=== PATIENT | female | born 1950 | race Caucasian/White ===

== ENCOUNTER 2016-08-30 17:36 | Observation (INO) | payer MEDICARE ==
[~2016-08-30] VITALS: Ht 154.9 cm; Wt 60.6 kg
--- NOTE | ~2016-08-30 | DS ---
PATIENT'S NAME: MAGY PERES [facility] AGE: 65 Y [address] ROOM: [place] [address] LOCATION: [facility] ADMIT DATE: 08/30/2016 Discharge Summary DISCHARGE DATE: 09/02/2016 FAMILY PHYSICIAN: Anil Lopez MD ATTENDING PHYSICIAN: Angel Regalado V PRINCIPAL DISCHARGE DIAGNOSIS: Urinary tract infection. SECONDARY DIAGNOSES: 1. Altered mental status. 2. Clostridium difficile diarrhea, recurrent. 3. Hyperthyroidism, secondary to thyroid replacement with ocular findings, TSH 0.07, T4 2.0. 4. Renal transplant. 5. Mitral and aortic valve replacement. 6. Chronic warfarin therapy. 7. Obstructive sleep apnea, on BiPAP. 8. Chronic hypercapnic respiratory failure. 9. Opioid dependency. CONSULTATIONS: Dr. Cooper of Neurology on 08/31/2016. PROCEDURES PERFORMED: None. COMPLICATIONS: None. BRIEF HISTORY: Ms. Peres is a 65-year-old chronically ill female, who appears much older than her biologic age. She has multiple medical problems, including opioid dependency, chronic hypercapnic respiratory failure. The patient presented with history of feeling dizzy, and for the past 3 days, she had also been falling. The patient was not able to further give a history because of her confused status on admission. Urinalysis was positive, and she was noted to have E. coli urinary tract infection, susceptible to ceftriaxone, which she has received 3 doses and will now be sent home on oral antibiotics. She developed diarrhea on the first day of admission. C. diff was reported back positive, and she was started on vancomycin oral dosing 125 mg q.i.d. We also added probiotics. She has had at least 2 stools today. She has been hydrated with IV fluids during the entire stay, and her renal function appears to be about at baseline, slightly elevated BUN above her normal. Currently, her renal panel shows sodium 136, potassium 3.4, chloride 104, CO2 of 22, glucose 129, calcium 8.3, BUN 29, it had been as high as about PATIENT'S NAME: MAGY PERES [facility] AGE: 65 Y [address] ROOM: [place] [address] LOCATION: [facility] ADMIT DATE: 08/30/2016 Discharge Summary DISCHARGE DATE: 09/02/2016 FAMILY PHYSICIAN: Anil Lopez MD ATTENDING PHYSICIAN: Angel Regalado V 33, and creatinine has been stable at 1.5 the entire time, albumin is 3.2, phosphorus is 3.0, estimated GFR is 35. A complete blood count on 09/01/2016 revealed white blood cell count 10.7, hemoglobin 11.5, platelets 442,000, absolute neutrophil count of 9.3, 75% granulocytes, 12% bands, 7% lymphocytes, 4% monos, 3% eos. Evaluation of her thyroid function because of her bulging eyes on exam, her TSH was found to be 0, which was obtained on admission was 0.007 and free T4 is 2.0 with upper limit of normal being 1.4. Her thyroid hormone has been held during the admission and will not be resumed on discharge. I have recommended this be followed closely by her PCP, and if further symptoms develop off her thyroid, she may need an endocrinology evaluation. The patient has a of her valve replacement and had therapeutic INR while she is here. She should continue INR monitoring as prior to admission. Current INR is 2.7. Presuming her goal would be 2.5 to 3.5. The patient's mental status cleared. She was more oriented and alert. Yesterday and today, she recognizes me when I walk in the room. She is very irritable. She did walk briefly with the physical therapist. I discussed with her and her daughter that she is ready for discharge. Her daughter is willing to pick her up later within an hour. DISCHARGE INSTRUCTIONS: Diet is heart healthy. Activity as tolerated. Follow up with Dr. Anil Lopez in 4 days. I did call his office to notify him of her hospitalization that she is being discharged with treatment for recurrent C. diff, and then I am holding her thyroid medication. MEDICATIONS AT THE TIME OF DISCHARGE: 1. Vancomycin 125 mg p.o. 4 times daily. 2. Amlodipine 10 mg p.o. daily. 3. Aspirin 81 mg p.o. daily. 4. Coreg 12.5 mg p.o. b.i.d. 5. Lexapro 10 mg daily. 6. Lasix 40 mg daily. 7. Protonix 40 mg daily. 8. Lactinex 1 p.o. t.i.d. with meals to be given, not at times with the Vancomycin. 9. Prograf 2 mg in the morning, 1 mg at bedtime. 10. Alprazolam 0.2 mg p.o. I am recommending she only take it up to 8 hours as needed and to decrease the dose because of her altered mental status at the time of admission. 11. Zolpidem 5 mg at h.s. for insomnia. I recommend also weaning that due to altered mental status. 12. DuoNeb every 6 hours p.r.n. dyspnea. PATIENT'S NAME: MAGY PERES [facility] AGE: 65 Y [address] ROOM: [place] [address] LOCATION: [facility] ADMIT DATE: 08/30/2016 Discharge Summary DISCHARGE DATE: 09/02/2016 FAMILY PHYSICIAN: Anil Lopez MD ATTENDING PHYSICIAN: Angel Regalado V 13. Warfarin 2 mg daily except for 3 mg on Monday, Monday, and Monday. 14. CellCept 750 mg p.o. b.i.d. 15. Oxycodone, again I am also recommending a dose reduction of 1 tablet only every 8 hours in consideration of her mental status. 16. As above, her Levothroid should be stopped until further directions from Dr. Lopez. CONDITION AT DISCHARGE: Fair. LAUREN CULVER MD LM/modl /[id number] CC: Anil Lopez MD d: 09/03/16 0306 t: 09/05/16 1425, DISCHARGE SUMMARY
--- NOTE | ~2016-08-30 | HP ---
PATIENT'S NAME: MAGY PERES [facility] AGE: 65 Y [address] ROOM: [place] [address] LOCATION: [facility] ADMIT DATE: 08/30/2016 History & Physical DISCHARGE DATE: FAMILY PHYSICIAN: Anil Lopez MD ATTENDING PHYSICIAN: JAZMYNE ROSALES V DATE OF SERVICE: CHIEF COMPLAINT: Dizziness. HISTORY OF PRESENT ILLNESS: The patient is a 65-year-old female, well-known to our service, with multiple medical problems, most significant of which is opioid dependency along with chronic hypercapnic respiratory failure with doubtful compliance and recurrent hospitalizations. The remainder of the past medical history will be detailed below. The patient unfortunately is extremely poor historian at this point. Apparently, she has been falling and feeling dizzy for the last 3 days. She is not losing consciousness and further qualifies her symptoms as "inability to control her body." She has undergone some opioids changes recently though she is unable to tell me who changed her medications or from what or to what and we will request those records from [facility]. If you ask her about chest pain, shortness of breath, nausea, vomiting, diarrhea, palpitations, or diaphoresis, the patient denies, and tells me that "she feels great." REVIEW OF SYSTEMS: All systems have been reviewed and are negative aside from pertinent positives mentioned above. EMERGENCY DEPARTMENT COURSE: In the ER, the patient had a detailed workup which so far was positive for some pyuria though the patient denies any urinary symptoms. PAST MEDICAL HISTORY: Significant for recurrent C. diff colitis, mitral valve replacement, aortic valve replacement, long-term anticoagulation for mechanical valve, PE, kidney transplant, recurrent diastolic congestive heart failure, obstructive sleep apnea on BiPAP, peripheral vascular disease, fibromyalgia, gastritis, chronic pain, and opioid dependency. PAST SURGICAL HISTORY: PATIENT'S NAME: MAGY PERES [facility] AGE: 65 Y [address] ROOM: [address] [address] LOCATION: [facility] ADMIT DATE: 08/30/2016 History & Physical DISCHARGE DATE: FAMILY PHYSICIAN: Anil Lopez MD ATTENDING PHYSICIAN: JAZMYNE ROSALES V Significant for fecal transplant, multiple fractures, kidney transplant, right AV fistula, mitral valve replacement, and aortic valve replacement. CURRENT MEDICATIONS: Current medications are being obtained and the patient unfortunately does not know what medications she is on. SOCIAL HISTORY: The patient denies any ongoing toxic habits, but does have a longstanding history of tobacco use. She resides at home with her . FAMILY HISTORY: Reviewed and is noncontributory due to known underlying etiology for the patient's presentation. PHYSICAL EXAMINATION: VITAL SIGNS: Blood pressure 137/70, pulse is 83, respirations are 20, temperature 99.3, and satting 95% on room air. GENERAL: Appears as a chronically ill, elderly female, in no acute distress. NEUROLOGIC: Exam is grossly nonfocal. EYES: Exam shows pupils are equal and reactive to light. There is no nystagmus or opsoclonus. ENT: Exam reveals no stridor. LYMPHATIC: Exam shows no cervical lymphadenopathy. ENDOCRINE: Exam shows no thyromegaly. LUNGS: Clear to auscultation with no wheezing or rhonchi. HEART: Exam shows regular rate and rhythm without appreciable murmurs, gallops, or rubs. GI: Abdomen is soft, nontender, nondistended. : Exam shows no costovertebral angle tenderness. VASCULAR: Exam shows slightly diminished, but good pedal pulses with good capillary refill. MUSCULOSKELETAL: Exam shows multiple scars from prior arm surgery. PSYCHIATRIC: Exam reveals a quite distracted affect with preserved mood and slightly deficient cognition. LABORATORY DATA: Studies performed in the ER significant for an unremarkable chest x-ray and UA, which shows 500 leukocytes and many bacteria. Her basic metabolic profile is significant for creatinine of 1.5, which is slightly up from baseline, sodium of 132, potassium of 3.6, and bicarb of 2.1. Procalcitonin is negative. ASSESSMENT AND PLAN: This is a 65-year-old female who will be admitted for observation due to: PATIENT'S NAME: MAGY PERES [facility] AGE: 65 Y [address] ROOM: [id number] [place], [place] [address] LOCATION: [facility] ADMIT DATE: 08/30/2016 History & Physical DISCHARGE DATE: FAMILY PHYSICIAN: Anil Lopez MD ATTENDING PHYSICIAN: JAZMYNE ROSALES V 1. Reported dizziness. A CAT scan of her head has been done and appears to be negative. Unfortunately, she is a very poor historian and I am not sure as to what is the underlying etiology for her dizziness. As such, we will perform the following workup:. a. We will get an arterial blood gas as she does have a recurrent history of hypercapnic respiratory failure; and at this point is quite disorganized. b. We will get an EKG to rule out any abnormalities there. c. We will get a Neurology evaluation for her dizziness. 2. Slight azotemia. I believe that at this point the patient is probably slightly dehydrated, which may be contributing to her symptoms. We will put her on gentle fluid amount and trend her electrolytes. 3. Pyuria. I am not tempted to treat this pyuria just yet as the patient does have a very strong history of difficult to treat C. diff and we would like to avoid that for her. 4. Mechanical heart valve on long-term anticoagulation. We will continue her on Coumadin and check her INR. 5. Status post kidney transplant. We will have to get her current immunosuppressive regimen and we will restart her on those medications. 6. Additional management will depend on clinical course. Time dedicated to this patient encounter is 35 minutes. MD ALEX AG/carito /[id number] D: [id number] T: 723 HISTORY & PHYSICAL
--- NOTE | ~2016-08-30 | ER ---
PATIENT'S NAME: MAGY PERES [facility] AGE: 65 Y [address] ROOM: [place] [address] LOCATION: [facility] ADMIT DATE: 08/30/2016 ER/Outpatient Report DISCHARGE DATE: FAMILY PHYSICIAN: Anil Lopez MD ATTENDING PHYSICIAN: JAZMYNE ROSALES V Admission date and time documented in the medical record. I saw the patient at 1800 hours. CHIEF COMPLAINT: Leg weakness, diarrhea. HISTORY OF PRESENT ILLNESS: This patient is a 65-year-old female, who has had a 2- to 3-day history of increasing weakness in her legs. She has a little bit of diarrhea. No nausea or vomiting. No headache, eyes, ears, nose, throat, neck, or spine pain. No fall or trauma. No recent colds, coughs, or flus. No lightheadedness, dizziness, syncope, or near syncope. No chest pain, shortness of breath. No abdominal pain. No nausea or vomiting. No urinary symptoms. No joint or muscle swelling, redness, or pain. No skin eruptions or rash. No neuro changes, psych issues, or endocrine problems. HOME MEDICATIONS: See attached medication list. ALLERGIES: CODEINE, CONTRAST DYE, MORPHINE SULFATE, NON-STEROIDALS, AND TORADOL. SOCIAL HISTORY: Nonsmoker since 2012, nondrinker. SIGNIFICANT PAST MEDICAL HISTORY: Hiatal hernia; obstructive sleep apnea, on CPAP; congestive heart failure; C. diff colitis; valvular heart disease; chronic anticoagulation with Coumadin; pulmonary embolism; peripheral vascular disease; fibromyalgia; gastritis; left arm fracture; pelvic fracture; bilateral hip fracture; remote tobacco abuse. OPERATIONS: Left kidney transplant, mitral valve replacement, fecal transplant, AV fistula placement, cholecystectomy, hysterectomy, parathyroidectomy, bilateral hip surgery, pelvic surgery, left arm surgery. REVIEW OF SYSTEMS: All systems reviewed by me are negative with the exception of those discussed in the history of present illness. PATIENT'S NAME: MAGY PERES [facility] AGE: 65 Y [address] ROOM: [place] [address] LOCATION: [facility] ADMIT DATE: 08/30/2016 ER/Outpatient Report DISCHARGE DATE: FAMILY PHYSICIAN: Anil Lopez MD ATTENDING PHYSICIAN: JAZMYNE ROSALES V PHYSICAL EXAMINATION: VITAL SIGNS: Temperature 99.3 tympanic, pulse 83, respirations 20, blood pressure 137/70, O2 saturation on room air is 95%. HEAD: Normocephalic. EYES, EARS, NOSE, THROAT: Clear. Mucous membranes are moist. NECK: Negative. LUNGS: Fairly clear. Fairly good air flow. Questionable few basilar rales. HEART: Regular. Pulses are palpable. ABDOMEN: Soft, nontender. Good bowel tones. EXTREMITIES: Some peripheral edema. No cyanosis. No deformity. NEUROVASCULAR: Intact. SKIN: Clear. LABORATORY DATA AND X-RAYS: Chest x-ray shows some pulmonary edema, beginning congestive heart failure, enlarged heart. Laboratory: Lactate was 0.8, procalcitonin was less than 0.05. Urine showed 50 to 100 whites, negative reds, negative epithelial cells, many bacteria, few white blood cell clumps, culture pending. Blood cultures x2 drawn, results pending. CMS was normal except for a slight low sodium 132, slight low potassium 3.6, low CO2 content of 21, slightly elevated glucose of 101, elevated BUN of 27, elevated creatinine 1.5, low GFR of 35. White count was 8200, 72 segs, 13 lymphs, 14 monos, 1 eosinophil, hemoglobin was 11 with hematocrit 33.7, platelet count was 420,000. PTT was 44, pro-time was 25.8 with an INR of 2.3. EMERGENCY DEPARTMENT COURSE: I did give the patient Lasix 40 mg IM in the emergency room and Percocet 5/325 two orally in the emergency room for pain. IMPRESSION: 1. Fluid overload, pulmonary hypertension with beginning congestive heart failure. 2. Urinary tract infection. 3. Obstructive sleep apnea, on CPAP. 4. Valvular heart disease with mitral valve replacement. 5. Chronic anticoagulation with Coumadin. 6. Peripheral vascular disease. 7. Fibromyalgia. 8. Remote tobacco abuse. PLAN: Discussed the patient initially with Dr. Anil Lopez, one of the hospitalist, PATIENT'S NAME: MAGY PERES [facility] AGE: 65 Y [address] ROOM: [address] [address] LOCATION: [facility] ADMIT DATE: 08/30/2016 ER/Outpatient Report DISCHARGE DATE: FAMILY PHYSICIAN: Anil Lopez MD ATTENDING PHYSICIAN: JAZMYNE ROSALES V to take care of her, his patient. Discussed the patient with Dr. Rosales. We will admit for observation. We will need diuresis and antibiotic therapy for urinary tract infection. Discussion ensued with the patient concerning my findings and recommendations, she understands. MD KHLOE DESAI/raheell /[id number] d: 08/31/16 0240 t: 09/02/16 1812, OUTPATIENT REPORT
[~2016-08-30 17:36] MED LIST: ALBUTEROL2.5 MG/0.5 INH; ALBUTEROL2.5 MG/31 INH; AMBIEN5 MG PO; APRESOLINE25 MG PO; BIPAP INH; CATAPRES-TTS0.3 MG TRANS; CELLCEPT250 M1 PO; CELLCEPT500 MG PO; CLEOCIN HCL300 MG PO; COREG12.5 MG PO; COUMADIN ** 9/62 MG PO; COUMADIN ** IA3 MG PO; COUMADIN **IA1 MG PO; COUMADIN **IA2.5 MG PO; COUMADIN2 MG PO; COUMADIN3 MG PO; DELTASONE5 MG PO; DESYREL50 MG PO; DIFICID200 MG PO; DILANTIN50 MG; DILAUDID 4MG4 MG PO; DILAUDID4 MG PO; ECOTRIN81 MG PO; EXELON PATCH 99.5 MG TOP; EXELON PATCH TOP; FEOSOL325 MG PO; FLORASTOR250 MG PO; IPRAT-ALBUT 0.5-3 ML INH; KAYEXALATE15 GM/60 M PO; LACTINEX (FLORA1 TAB PO; LACTINEX CHEWA1 EACH PO; LASIX20 M1 PO; LASIX40 M1 PO; LASIX40 MG PO; LEVOTHROID (SY50 MCG PO; LEXAPRO10 MG PO; LEXAPRO20 MG PO; LOPRESSOR50 MG; LOVENOX 8080 MG/0.8 SUB-Q; LYRICA 50MG CAP50 MG PO; MAG-OX-400(241400 MG PO; NORCO 5-325 MG1 TAB PO; NORVASC10 MG PO; OXYGEN M-15 INH; PAIN RELIEF325 MG PO; PEPCID20 MG PO; PERCOCET 5-3251 EACH PO; PREVALITE (=4 GM/PKT PO; PRILOSEC20 MG; PROGRAF 1MG CAPS1 MG PO; PROGRAF1 MG PO; PROTONIX40 MG PO; RIVASTIGMINE TOP; SYNTHROID50 MCG PO; TEARGEN1 BOT OPHTH; TYLENOL650 MG R; XANAX0.25 MG PO; ZOFRAN4 MG PO
[2016-08-30 18:09] LABS: BILIRUBIN URINE NEGATIVE (NEGATIVE); BLOOD URINE 10 /UL (NEGATIVE); GLUCOSE URINE NEGATIVE (NEGATIVE); KETONE URINE NEGATIVE (NEGATIVE); LEUKOCYTES URINE 500 /UL (NEGATIVE); NITRITE URINE NEGATIVE (NEGATIVE); PROTEIN URINE 100 mg/dL (NEGATIVE); UROBILINOGEN URINE NORMAL (NORMAL)
[2016-08-30 18:17] LABS: COLOR URINE YELLOW (YELLOW); TURBIDITY URINE 2+ (CLEAR)
[2016-08-30 18:18] LABS: EPITHELIAL URINE NEGATIVE #/HPF (NEGATIVE); RBC URINE NEGATIVE #/HPF (NEGATIVE); WBC URINE 50-100 #/HPF (NEGATIVE)
[2016-08-30 18:19] LABS: BACTERIA URINE MANY (NEGATIVE); WBC CLUMPS URINE FEW (NEGATIVE)
[2016-08-30 18:46] LABS: HEMATOCRIT 33.7 % (33.0-46.0); MCH 27.6 pg (27.0-34.0); MCHC 32.6 gm/dL (32.0-36.5); MPV 8.9 fl (9.4-12.4); PLATELET COUNT 420 K/uL (150-450); RBC 3.98 M/uL (3.50-5.50); RDW-CV 12.8 % (11.9-14.6); WBC 8.2 K/uL (4.0-11.0)
[2016-08-30 18:47] LABS: MCV 84.7 fl (83.0-98.0)
[2016-08-30 18:54] LABS: INR - (THERAPEUTIC) 2.3 (0.9-1.1); PROTIME 25.8 SECONDS (9.6-11.1); PTT 44 SECONDS (25-32)
[2016-08-30 19:01] LABS: ALBUMIN 3.7 gm/dL (3.5-5.0); ANION GAP 17.6 (10.0-19.0); CALCIUM 8.8 mg/dL (8.5-10.5); CREATININE 1.5 mg/dL (0.5-1.1); POTASSIUM 3.6 mMol/L (3.7-5.1); TOTAL BILIRUBIN 0.4 mg/dL (0.0-1.5)
[2016-08-30 19:07] LABS: ABSOLUTE NEUTROPHIL CT (ANC) 5.9 K/uL (1.8-7.8); LYMPHOCYTE # 1.1 K/uL (0.8-4.0); LYMPHOCYTE % 13 %; MONOCYTE # 1.1 K/uL (0.0-1.0); SEGMENTED NEUTROPHIL # 5.9 K/uL (1.8-7.8); SEGMENTED NEUTROPHIL % 72 %
[2016-08-30 21:10] LABS: BICARBONATE 22.9 mmol/L (18.0-23.0); PCO2 37 mmHg (35-45); PO2 63 mmHg (80-90)
--- NOTE | 2016-08-31 00:16 | NUR ---
Patient is a 73 y/o female from [place]. Has been experiencing dizziness and left shoulder pain the last couple days. Didn't come into the ER because she thought it would get better. VSS. Afebrile. Chronic n/t to hands and feet. Lung sounds clear throughout on Room Air. Sometimes wears O2 during the day. Sometimes wears Bipap at night. Hx of CHF, PEs, L)kidney transplant, Fibromyalgia, R) AV fistula, MRSA, CDIF. PERRLA. Denies headache. C/O dizziness at this time. Pain to left shoulder. No problems urinating. Bowels active. Last BM this morning. Difficulty getting words out, slurred speech- states she's been having this for the last two days as well.
--- NOTE | 2016-08-31 03:49 | NUR ---
SIGNIFICANT EVENT: PATIENT A/O X 3. PERRLA. DENIES N/T. STATES SOMETIMES EXPERIENCE NUMBNESS IN BILATERAL ARMS, BUT DENIES THIS SHIFT. MOVES ALL EXTREMITIES SPONTANEOUSLY AND TO COMMAND WITH EQUAL STRENGTH. AMBULATES HEAVY 1 ASSIST, REACHES FOR THINGS TO SUPPORT HER. LUNGS CLEAR AND DIM ON ROOM AIR. PT STATES SHE USES O2 NEEDED AT HOME, WELL BIPAP AT NIGHT. BM THIS SHIFT. NO ISSUES VOIDING. IV TO LEFT SHOULDER RUNNING NS AT 50 ML/HR X 24 HOURS. PAIN TO LEFT SHOULDER, RATING AT A 6. PERCOCET GIVEN X 1 X 2 TABS AROUND 0000, RELIEF NOTED. C/0 DIZZINESS. FOLLOW UP: PAIN CONTROL. CAROTID DOPPLERS TODAY. NEED ORTHOSTATIC VITALS THIS AM. FALL PRECAUTIONS.
[2016-08-31 07:00] LABS: HEMATOCRIT 33.3 % (33.0-46.0); HEMOGLOBIN 10.9 g/dL (10.0-15.0); MCH 27.6 pg (27.0-34.0); MCHC 32.7 gm/dL (32.0-36.5); MCV 84.3 fl (83.0-98.0); MPV 8.7 fl (9.4-12.4); PLATELET COUNT 407 K/uL (150-450); RBC 3.95 M/uL (3.50-5.50); WBC 10.2 K/uL (4.0-11.0)
[2016-08-31 07:50] LABS: ABSOLUTE NEUTROPHIL CT (ANC) 7.3 K/uL (1.8-7.8); BANDED NEUTROPHILS % 10 %; LYMPHOCYTE # 0.9 K/uL (0.8-4.0); LYMPHOCYTE % 9 %; MONOCYTE # 1.4 K/uL (0.0-1.0); SEGMENTED NEUTROPHIL # 6.3 K/uL (1.8-7.8); SEGMENTED NEUTROPHIL % 62 %
[2016-08-31 07:58] LABS: CALCIUM 8.7 mg/dL (8.5-10.5); CREATININE 1.5 mg/dL (0.5-1.1); PHOSPHORUS 4.3 mg/dL (2.5-4.9)
[2016-08-31 08:01] LABS: ANION GAP 19.4 (10.0-19.0); MAGNESIUM 1.6 mg/dL (1.3-2.6)
[2016-08-31 08:02] LABS: POTASSIUM 4.4 mMol/L (3.7-5.1)
[2016-08-31] MEDS ORDERED: PERCOCET 5-3251 EACH PO (09:27)
[2016-08-31] MEDS ORDERED: LEVOTHROID (SY50 MCG PO (09:27)
[2016-08-31 10:18] LABS: INR - (THERAPEUTIC) 3.4 (0.9-1.1); PROTIME 39.1 SECONDS (9.6-11.1)
--- NOTE | 2016-08-31 12:07 | NUR ---
Significant Event: Patient is A&Ox3 but forgetfull. States pain is in left shoulder and sometimes numbness. Moves extremities to command and spontaneoulsy. Ambulates heavy 1 to 2 assist. Up to commade to void. Lungs clear and diminshed on room air. IV to left shoulder running NS 50 ml/hr x 25 hrs. Percocet Q6. Slightly muffled speech.
--- NOTE | 2016-08-31 12:13 | NUR ---
Introduced self and CM role to [place]. She tells me that she lives at home with her in [place] and plans to return there upon discharge. She has a FWW at home that she does use from time to time to get around with. Denies any additional DME needs upon discharge. Wendy does her own medication at home, her and daughter help her out if she needs them to. Denies any concerns about returning home when ready. Has had history of [facility] in the past, but when we talked about it this time, she declines needing their services at this time. No other questions, needs or concerns. Will continue to follow and assist. Plan for home.
--- NOTE | 2016-09-01 05:30 | NUR ---
SIGNIFICANT EVENT: PATIENT A/O X 3. FORGETFUL/CONFUSED OFTEN. AGITATED AND MOOD SWINGS AT TIMES. PERRLA. MOVES ALL EXTREMITIES SPONTANEOUSLY AND TO COMMAND. DENIES N/T. NO COMPLAINTS OF DIZZINESS THIS SHIFT. LUNGS CLEAR AND DIM ON 2 L. RENAL DIET. TRANSFERS WITH 1-2 ASSIST. USES BEDSIDE COMMODE. WEAKNESS TO BILATERAL LOWER EXTREMITIES. PAIN TO LEFT SHOULDER. IV TO LEFT SHOULDER RUNNING NS AT 50 ML/HR. ISOLATION FOR CDIF. UTI. RECEIVING ABX. VSS. AFEBRILE. FOLLOW UP: ALARMS AT ALL TIMES.
[2016-09-01 09:22] LABS: INR - (THERAPEUTIC) 3.3 (0.9-1.1); PROTIME 38.9 SECONDS (9.6-11.1)
[2016-09-01 09:30] LABS: HEMOGLOBIN 11.5 g/dL (10.0-15.0); MCH 27.3 pg (27.0-34.0); MCHC 31.9 gm/dL (32.0-36.5); MCV 85.3 fl (83.0-98.0); MPV 8.8 fl (9.4-12.4); PLATELET COUNT 442 K/uL (150-450); RBC 4.22 M/uL (3.50-5.50); RDW-CV 13.1 % (11.9-14.6); WBC 10.7 K/uL (4.0-11.0)
[2016-09-01 09:31] LABS: ALBUMIN 3.2 gm/dL (3.5-5.0); ANION GAP 14.6 (10.0-19.0); CALCIUM 8.3 mg/dL (8.5-10.5); CREATININE 1.5 mg/dL (0.5-1.1); PHOSPHORUS 3.5 mg/dL (2.5-4.9); POTASSIUM 3.6 mMol/L (3.7-5.1)
[2016-09-01 10:01] LABS: ABSOLUTE NEUTROPHIL CT (ANC) 9.3 K/uL (1.8-7.8); BANDED NEUTROPHIL # 1.3 K/uL (0.0-0.1); BANDED NEUTROPHILS % 12 %; LYMPHOCYTE # 0.7 K/uL (0.8-4.0); LYMPHOCYTE % 7 %; MONOCYTE # 0.4 K/uL (0.0-1.0); SEGMENTED NEUTROPHIL % 75 %
--- NOTE | 2016-09-01 14:11 | NUR ---
Significant Event: PT ALERT; DISORIENTED TO TIME. FORGETFUL. PERRLA. TRANSFERS WITH 1-2 ASSIST/GAIT BELT/WALKER. NEEDS VERBAL CUES WHEN AMBULATING. SAT IN THE CHAIR FOR SEVERAL HOURS TODAY. VITAL SIGNS STABLE; ON ROOM AIR DURING THE DAY. WEARS O2 AT 2 LITERS PER NASAL CANNULA AT NIGHT. HAS COMPLAINED OF BILATERAL ARM PAIN. PRN PERCOCET GIVEN WITH RELIEF. VOIDS PER COMMODE. SEVERAL LOOSE BM'S THIS SHIFT (HAS BEEN CONTINENT AND INCONTINENT OF STOOL). BILATERAL CALF PUMPS ON. CURRENT UTI; PT IS ON IV ROCEPHIN. PO VANCOMYCIN FOR C-DIFF. IV TO L)SHOULDER INFUSING IV FLUIDS WITHOUT COMPLICATIONS. FAIR APPETITE. Follow up: CONTINUE TO MONITOR
--- NOTE | 2016-09-02 04:26 | NUR ---
Significant Event:Patient A/O x 3. PERRLA. Denies N/T/headache. C/O shoulder pain. Became less confused throughout shift. Stated she is feeling better. Moves all extremities spontaneously and to command with moderate strength throughout. SR. VSS. Afebrile. Placed on 1 L of 02 at 0317. Lungs clear throughout. Renal diet. No bm this shift. 1-2 Assist for transfers. IV to left shoulder saline running fluids at 75 ml/hr. Percocet given last at 322, relief noted. Follow up: Home tomorrow?
[2016-09-02 09:29] LABS: ALBUMIN 3.2 gm/dL (3.5-5.0); ANION GAP 13.4 (10.0-19.0); CALCIUM 8.3 mg/dL (8.5-10.5); CREATININE 1.5 mg/dL (0.5-1.1); POTASSIUM 3.4 mMol/L (3.7-5.1)
[2016-09-02 09:54] LABS: INR - (THERAPEUTIC) 2.7 (0.9-1.1); PROTIME 30.8 SECONDS (9.6-11.1)
[2016-09-02] MEDS ORDERED: VANCOCIN HCL125 MG PO (16:30)
[2016-09-02] MEDS ORDERED: LACTINEX (FLORA1 TAB PO (16:33)
--- NOTE | 2016-09-02 19:11 | NUR ---
Patient is alert and oriented x3. Forgetful at times. Follows commands. Denies DARBY, Denies N/T. PERRLA. Pulses palpable throughout- moderate equal strength. Slightly blurred vision. Lungs are clear and slightly diminished in the bases. SR. Right hand bruised. PIV in left shoulder removed. BSA- Active CDIff. Patient walked to front door in wheelchair and transported home by daughter. PIV removed and all belongings sent with patient including follow up appts, medication and new med information and dvt prevention
== END 2016-09-02 18:45 | disposition disaster alternative care site (69) ==
LOC: GMED 17:36 → GNTU 21:41
PROVIDERS: Emergency Medicine; Family Medicine; Internal Medicine; ADMIT Internal Medicine
DX: N39.0 Urinary tract infection, site not specified (principal); I65.23 Occlusion and stenosis of bilateral carotid arteries; R41.82 Altered mental status, unspecified; A04.7 Enterocolitis due to Clostridium difficile; E05.90 Thyrotoxicosis, unspecified without thyrotoxic crisis or storm; Z23 Encounter for immunization; G47.33 Obstructive sleep apnea (adult) (pediatric); J96.12 Chronic respiratory failure with hypercapnia; Z94.0 Kidney transplant status; Z95.2 Presence of prosthetic heart valve; Z79.82 Long term (current) use of aspirin; Z79.899 Other long term (current) drug therapy; Z79.01 Long term (current) use of anticoagulants; Z79.891 Long term (current) use of opiate analgesic
CPT/HCPCS: G0008; G8978; G8979; G8980; J0696; J1940; J3370; J3480; J7030; J7040; J7507; J7517

== ENCOUNTER 2016-10-17 14:54 | Inpatient (IN) | payer MEDICARE ==
[~2016-10-17] VITALS: Ht 154.9 cm; Wt 56.6 kg
--- NOTE | ~2016-10-17 | ECHO ---
Transthoracic Echocardiography Report (TTE) Demographics Patient Name MAGY PERES Date of Study 10/18/2016 Patient Number [id number] Visit Number [id number] Date of 1950 Room Number G3206 Accession Number [id number] Gender Female Age 65 year(s) Referring John Stockton MD Drawer In Stitch Bonding Machine Carlos Montalvo Physician Chris Giang MD Physician Interpreting Viky Sagastume MD Special Needs Teacher Physician Supervising Ordering Physician Chris Giang MD/HOLLAND YATES Nurse Stress [employer] [place] Conclusions Contractility Score Summary Normal Left Ventricular contractility was noted. Summary The estimated left ventricular ejection fraction is 55-60%. Mild concentric left ventricular hypertrophy. Diastolic assessment reveals Grade II pseudonormal diastolic function. Mildly reduced right ventricular function. The left atrium is moderately dilated by LA volume index measurement. The patient is known to have a prosthetic mechanical mitral valve. The prosthetic mitral valve functions normally with no perivalvular leak. Moderate mitral prosthetic ring calcification. Moderate mitral valve stenosis. The mean gradient is 6 mmHg. The prosthetic aortic valve appears to function normally with no perivalvular leak. Mild aortic prosthetic ring calcification. There is moderate aortic stenosis by the Continuity Equation. The peak velocity is 2.9 m/s, the mean gradient is 14 mmHg, and the valve area based on the continuity equation is 1.2 cm2, stroke volume index is 36 ml/m2. The ascending aorta appears moderately dilated. The maximum diameter measures 3.8 cm. Procedure Type of Study TTE procedure:2D Echocardiogram, M-Mode, Doppler , Color Doppler. Procedure Date Date: 10/18/2016 Start: 08:38 AM Study Location: Echo Lab Technical Quality: Adequate visualization Indications:History of mitral valve replacement and Prosthetic valve function. Additional Indications:Aortic valve replacement INR Altered mental status Appropriate Use Criteria: 9 Patient Status: Routine HR: 68 bpm M-Mode/2D Measurements LV Diastolic Dimension: 4.16 cm LV Systolic Dimension: 2.71 cm LV Septum Diastolic: 1.33 cm LV PW Diastolic: 1.26 cm AO Root Dimension: 2.4 cm Cardiac Output: 3.67 l/min LA Dimension: 3.9 cm EF Estimated: 60 % LVOT: 1.7 cm LVOT VTI: 23.8 cm RV Base: 2.56 cm LV Stroke volume: 53.99 ml RV Length: 5.3 cm TAPSE: 0.99 cm TDI-S': 7.9 cm/s Doppler Measurements AV Peak Velocity: 2.88 m/s MV Peak E-Wave: 1.47 m/s AV Peak Gradient: 33.18 mmHg MV Peak A-Wave: 1.41 m/s AV Mean Gradient: 14 mmHg MV E/A Ratio: 1.04 LVOT Peak Velocity: 1.41 m/s MV P1/2t: 87 msec TR Gradient:10.5 mmHg PV Peak Velocity: 1.29 m/s Estimated RAP:3 mmHg PV Peak Gradient: 6.66 mmHg Estimated RVSP: 14 mmHg Estimated PASP: 13.5 mmHg E' Septal Velocity: 0.04 m/s A' Septal Velocity: 0.06 m/s E' Lateral Velocity: 0.06 m/s A' Lateral Velocity: 0.07 m/s Findings Left Ventricle The left ventricle is normal in size . Mild concentric left ventricular hypertrophy. Diastolic assessment reveals Grade II pseudonormal diastolic function. Right Ventricle Mildly reduced right ventricular function. Left Atrium The left atrium is moderately dilated by LA volume index measurement. Right Atrium Normal right atrial size. IVC measures 1.41 cm with inspiratory collapse. Mitral Valve The patient is known to have a prosthetic mechanical mitral valve. The prosthetic mitral valve functions normally with no perivalvular leak. Moderate mitral prosthetic ring calcification. Mild to moderate mitral valve stenosis. The mean gradient is 6 mmHg. Aortic Valve The prosthetic aortic valve appears to function normally with no perivalvular leak. Mild aortic prosthetic ring calcification. There is moderate aortic stenosis by the Continuity Equation. The peak velocity is 2.9 m/s, the mean gradient is 14 mmHg, and the valve area based on the continuity equation is 1.2 cm2, stroke volume index is 36 ml/m2. Tricuspid Valve Trivial tricuspid regurgitation by color Doppler. Pulmonic Valve Normal pulmonic valve structure and function. Pericardial Effusion No evidence of pericardial effusion. Miscellaneous The ascending aorta appears mildly dilated. The maximum diameter measures 3.8 cm. Pleural Effusion No evidence of pleural effusion. Contractility Score LV regional wall motion:(0-Non visualized 1-Normal 2-Hypokinesis 3-Akinesis 4-Dyskinesis 5-Aneurysm) Signature dtt: Mitesh Salmon (cardio) dtd: 10/18/16 0838 Physician Self Edit
--- NOTE | ~2016-10-17 | CON ---
PATIENT'S NAME: MAGY PERES [facility] AGE: 65 Y [address] ROOM: [address] [address] [place] [facility] [place]: [place]2016 Consultation DISCHARGE DATE: FAMILY PHYSICIAN: Anil Lopez MD ATTENDING PHYSICIAN: SHAYY BOB REFERRING PHYSICIAN: DORITA HOLLEY MD Consult for ALESIA Patel. This 65-year-old lady is referred for rehab, possible [facility]GER evaluation, admitted on 06/18/2017 with confusion and some difficulty with her speech. She cannot give a good history. At the present time, she is easily agitated and cannot pronounce words well. She talks as a child when pronouncing, however, she struggles with bringing the proper words. She denied any headache. No nausea and no vomiting. No seizure disorder. No fever. Denied any trauma. No cough, no expectoration, no palpitation, no chest pain. PAST MEDICAL HISTORY: She has history of, 1. Mechanical mitral valve and aortic valve replacement. 2. Recent history of C. diff. 3. History of pulmonary embolism. 4. History of diastolic congestive heart failure. 5. Sleep apnea. 6. Peripheral vascular disease. 7. Possibly fibromyalgia. 8. On and off gastric discomfort. PHYSICAL EXAMINATION: VITAL SIGNS: Blood pressure 145/90, temperature 97.7, pulse 78, respiration rate 20. GENERAL: She stands 5 feet 1 inch and weighs 59 kg. She can orient self with effort, however, easily gets disoriented and speaks as I mentioned, like a baby pronunciation of words, however, she gets easily agitated and starts shouting and gets hyper; however, she can be redirected also and calms down. Can move all 4 without much difficulty. Her voice is clear and not wet. Tongue and soft palate are moving symmetrical. Can move all 4 with muscle strength of about 4/5 throughout. Deep tendon reflexes are present and equal throughout. She has good bladder control. She is on the following medication: 1. Thiamine hydrochloride. 2. Risperdal. 3. Desyrel. 4. Coumadin. PATIENT'S NAME: MAGY PERES [facility] AGE: 65 Y [address] ROOM: [address] [address] [place] [facility] [place]: 10[place]17/2016 Consultation DISCHARGE DATE: FAMILY PHYSICIAN: Anil Lopez MD ATTENDING PHYSICIAN: SHAYY BOB 5. Folic acid. 6. Tylenol. 7. NaCl 0.9%. 8. Multivitamin. 9. Lactinex. 10. Aspirin. 11. Norvasc. 12. Lexapro. 13. Tacrolimus. 14. Coreg. 15. Protonix. 16. Albuterol. 17. CellCept. 18. Mag oxide. 19. Prograf. 20. Dificid. ASSESSMENT AND PLAN: She is at the present time agitated, easily confused, can be redirected, but again she gets agitated easily. Refusing to work with PT, OT, and speech. Likes to rest more than not, has been able 2 days ago to walk up to 50 feet; however, for the last 2 days, she has not been cooperative. I feel this lady should continue on PT, OT, and speech for the time being. I really do not think she can tolerate intensive rehab at the present time. More often, she would need speech rather than anything and to continue with her PT and OT for the time being. I should follow alongside with you. Thank you for this referral. HANDY GUNDERSON MD WMS/modl /[id number] d: 10/25/162053 t: 10/26/16 1303, CONSULTATION REPORT
--- NOTE | ~2016-10-17 | DS ---
PATIENT'S NAME: MAGY PERES [facility] AGE: 65 Y [address] ROOM: [address] [address] LOCATION: [facility] [place] ADMIT DATE: 10/17/2016 Discharge Summary DISCHARGE DATE: FAMILY PHYSICIAN: Anil Lopez MD ATTENDING PHYSICIAN: Moustapha Perez PRINCIPAL DIAGNOSES: 1. Acute encephalopathy, multifactorial in origin secondary to long-term alcohol abuse, Clostridium difficile colitis, as well as opiate dependence/withdrawal. 2. Recurrent Clostridium diff colitis, status post fecal transplant receiving in the past, currently on Dificid, not improving. 3. Prosthetic mitral as well as aortic valves, was found to have low INR, and was bridged to therapeutic INR with heparin. 4. History of pulmonary embolism/deep venous thrombosis, on long-term anticoagulation with Coumadin. 5. Alcohol abuse and opiate dependence. 6. Renal transplant recipient with stable creatinine levels. 7. Obstructive sleep apnea. 8. Fibromyalgia. HOSPITAL COURSE: A 65-year-old lady with multiple admissions to our facility at [facility], was brought in by the family with confusion which has been going on for over 2 to 3 months now. On admission to our facility, a CAT scan of the head was done which showed normal CT scan of the head. No changes from prior examination. An MRI of the head was also done which showed mild diffuse cerebral atrophy since the prior study, which was in 2009, as well as periventricular white matter is essentially normal as before. No ischemic lesion or hemorrhages were noted. Lab work was done which was essentially unremarkable except normocytic anemia with a hemoglobin of around 9 which remained stable during the hospital course. She was found to have loose stools, and C diff was tested which returned positive. Infectious disease consultation was obtained, and the patient was started on Dificid, but it was anticipated that she will need fecal transplant. Regarding her acute encephalopathy, neurology consultation was made, and we came to the conclusion that this is secondary to multiple factors including her long-term alcohol abuse, opiate dependence/withdrawal, as well as current episode of C diff colitis. She was treated with high dose of thiamine in the hospital with a suspicion of Wernicke encephalopathy with mild improvement in her cognition. Psych consultation was also obtained regarding this, and the patient was started on antipsychotics to treat her delirium or encephalopathy. On admission to the hospital, her INR was subtherapeutic given her history of mitral as well as aortic valve prosthesis. She was started on heparin drip and bridged to therapeutic INR with a target of 2.5 to 3.5, and then heparin drip was discontinued. On recommendation from gastroenterology consultants, PATIENT'S NAME: MAGY PERES [facility] AGE: 65 Y [address] ROOM: [place] [address] LOCATION: [facility] – [place] ADMIT DATE: 10/17/2016 Discharge Summary DISCHARGE DATE: FAMILY PHYSICIAN: Anil Lopez MD ATTENDING PHYSICIAN: Moustapha Perez we [facility] in a more controlled environment given she also has a transplant kidney and currently on tacrolimus as well as mycophenolate. TRANSFER MEDICATIONS: Would include: 1. Amlodipine 10 mg p.o. every day. 2. Aspirin 81 mg p.o. every day. 3. Coreg 25 mg p.o. twice daily. 4. Citalopram 20 mg p.o. twice daily. 5. Fidaxomicin 200 mg p.o. twice daily. 6. Folic acid 1 mg tablet p.o. twice daily. 7. Lactobacillus 4 tablets p.o. 3 times daily. 8. Multivitamins one tablet p.o. daily. 9. Mycophenolate 750 mg p.o. twice daily. 10. Pantoprazole 40 mg p.o. every day. 11. Risperidone 0.5 mg p.o. 3 times daily. 12. Tacrolimus 1 mg every night at bedtime. 13. Tacrolimus 2 mg p.o. every morning. 14. Thiamine 100 mg p.o. twice daily. 15. Trazodone 100 mg p.o. every night at bedtime. 16. Coumadin, pharmacy to dose. 17. Albuterol 2 puffs inhalation every 4 hours as needed. 18. Albuterol 1 inhalation every 6 hours as needed p.r.n. for shortness of breath. ACTIVITY: As tolerated. The patient will remain in isolation. HEMODYNAMICS ON DISCHARGE: Stable. LABORATORY DATA: Lab work on discharge showed hemoglobin of 10.1, white count of 7.0, and platelets of 473. BMP panel on 10/25/2016 showed stable creatinine of 1.0 with a GFR 55, sodium 140, potassium 4.6, chloride 107, bicarbonate 25, calcium 9.1, and glucose 101. INR was 2.62. Procalcitonin on 10/23 was less than 0.05. I spent 45 minutes in discharge planning, coordinating care, talking with the family, and answering questions to the family as well as the patient. MD DIANE NEGRON/carito PATIENT'S NAME: MAGY PERES [facility] AGE: 65 Y [address] ROOM: [address] [address] LOCATION: [facility] – [place] ADMIT DATE: 10/17/2016 Discharge Summary DISCHARGE DATE: FAMILY PHYSICIAN: Anil Lopez MD ATTENDING PHYSICIAN: Moustapha Perez /[id number] d: 10/26/16 1343 t: 10/30/16 1507, DISCHARGE SUMMARY
--- NOTE | ~2016-10-17 | CON ---
PATIENT'S NAME: MAGY PERES [facility] AGE: 65 Y [address] ROOM: [place] [address] LOCATION: [facility] – [place] ADMIT DATE: 10/17/2016 Consultation DISCHARGE DATE: FAMILY PHYSICIAN: Anil Lopez MD ATTENDING PHYSICIAN: SHAYY BOB DATE OF CONSULTATION: 10/25/2016 REFERRING PHYSICIAN: DORITA HOLLEY MD HISTORY OF PRESENT ILLNESS: This is a 65-year-old female, who was well known to our Gastroenterology Services secondary to recurring C. diff. The patient underwent a fecal transplant in 2013, though has had relapsing C. diff colitis over the past year. The patient is a poor historian. She was admitted on 10/17/2016 with confusion. She does state that she has had numerous bowel movements over the past few days with accompanying abdominal pain and cramping. She denies any sukhdev fever, chills at home. On admission, her white blood cell count was 8.4. The stool test did show positive for C diff. The patient was seen and examined. She currently denies any chest pain, chest pressure, or shortness of breath. She complains of generalized abdominal discomfort and cramping with "a lot of bowel movements." She denies any sukhdev blood in the stool. PAST MEDICAL HISTORY: 1. Recurring C diff status post fecal transplant with relapsing mitral and aortic valve replacement. 2. Obstructive sleep apnea. 3. Peripheral vascular disease. 4. Renal transplant recipient. 5. Sleep apnea. 6. Possibly fibromyalgia. 7. Diastolic congestive heart failure. 8. History of pulmonary embolism. PAST SOCIAL HISTORY: The patient has a previous tobacco or history of previous smoking though denies any current tobacco use. She denies any alcohol or illicit drug use. She currently lives at home with her . FAMILY HISTORY: Unremarkable. She denies any known gastrointestinal diseases per her recollection. ALLERGIES: PATIENT'S NAME: MAGY PERES [facility] AGE: 65 Y [address] ROOM: [place] [address] LOCATION: [facility] – [place] ADMIT DATE: 10/17/2016 Consultation DISCHARGE DATE: FAMILY PHYSICIAN: Anil Lopez MD ATTENDING PHYSICIAN: SHAYY BOB 1. CONTRAST MEDIA. 2. NSAIDS. 3. MORPHINE. 4. CODEINE. 5. SENSIPAR. CURRENT MEDICATIONS: Please refer to the medication administration record. REVIEW OF SYSTEMS: A 10-point review of systems was completed. All were negative except for those identified in the history of present illness. PHYSICAL EXAMINATION: GENERAL: A pleasant 65-year-old female, sitting in chair who appears to be in no acute distress. VITAL SIGNS: Temperature 98.1, pulse of 87, respirations of 18, blood pressure 139/73, oxygen saturation 95% on room air. SKIN: [place], warm, and dry. No jaundice. HEENT: Head is normocephalic and atraumatic. Pupils are equal, round, and reactive to light. Sclerae are clear. Nonicteric. Oral mucosa is pink and moist. No thyromegaly. NECK: Soft and supple. CARDIOVASCULAR: Regular normal S1 and S2. RESPIRATORY: Respirations even and unlabored. LUNGS: Clear to auscultation. ABDOMEN: Soft, round, and generalized tender throughout. No rebound, rigidity, or guarding noted. Bowel sounds positive x4 quadrants. MUSCULOSKELETAL: No muscle weakness or atrophy. EXTREMITIES: No clubbing or cyanosis. 1+ trace edema noted to the bilateral lower extremities. NEUROLOGIC: Grossly nonfocal. LABS AND DIAGNOSTICS: White blood cell count 6.9, hemoglobin of 9.6, hematocrit of 30.9, and platelets of 476. Chemistry panel includes a glucose of 103, BUN of 11, creatinine 1.0. Sodium 139, potassium of 4.8, chloride of 107. CO2 of 23. Protime of 36.1, INR is 3.4. CRP on admission was 3.98 and elevated. The stool workup did show positive for C diff. ASSESSMENT/PLAN: Again, this is a pleasant 65-year-old female with recurring Clostridium difficile. The patient presented to the hospital with confusion and has began having diarrhea with a recheck of Clostridium diff showing positive. She is status post fecal transplant via upper endoscopy in 2013. She has had multiple relapses and she currently is on Dificid at this time. This was PATIENT'S NAME: MAGY PERES [facility] AGE: 65 Y [address] ROOM: [place] [address] LOCATION: [facility] – [place] ADMIT DATE: 10/17/2016 Consultation DISCHARGE DATE: FAMILY PHYSICIAN: Anil Lopez MD ATTENDING PHYSICIAN: SHAYY BOB discussed with Dr. Peace Rogers. The patient should most likely have fecal transplant using biome capsule. This will be discussed with our pharmacy, if unable to obtain here in [place]. The patient may need to be referred out to a larger facility for fecal transplant. Further recommendations to be given over the course of the patient's hospitalization. We do recommend to continue the Dificid as well as appreciate Infectious Disease input. Thank you for this consult and allowing us to participate in the care of this patient. EDDIE SYKES APRN FOR [facility] ROGERS MD MMF/modl /[id number] d: 10/26/16 1156 t: 11/07/16 1150, CONSULTATION REPORT
--- NOTE | ~2016-10-17 | CON ---
PATIENT'S NAME: MAGY PERES [facility] AGE: 65 Y [address] ROOM: [address] [address] LOCATION: [facility] [place] ADMIT DATE: 10/17/2016 Consultation DISCHARGE DATE: FAMILY PHYSICIAN: Anil Lopez MD ATTENDING PHYSICIAN: SHAYY BOB DATE OF CONSULTATION: 10/17/2016 REFERRING PHYSICIAN: DORITA HOLLEY MD HISTORY OF PRESENT ILLNESS: The patient was seen in Neurologic consultation on 10/17/2016 at 5 p.m. I was asked by Dr. Bob, the hospitalist, to consult on Ms. Peres, who I had seen in the Emergency Room at the time. She was there with her sister, who was extremely concerned that Ms. Peres, for the past two and a half to three weeks had been discharged from the hospital, but was getting extremely confused progressively after her discharge from the hospital. The confusion progressed to the point of being delirious on a daily basis. The sister claims that on a daily basis, the patient would be agitated, constantly trying to jump out of the bed, confused, and having problems with receptive speech deficits as well as even producing normal speech output such as normal sentences. She would answer questions with simple one-word responses, but usually never had a lucid period during the day if she would have a conversation. Most of the time she was extremely agitated. Over the course of about three to four days, she was so agitated that she did not sleep at all according to the sister. The sister had to intervene with her medical care because where she was living, it was not even clear that she was taking her medications. It should be noted that the patient has a long medical history, and an extreme amount of events of admissions to our hospital. Most recently, she presented back in late August of 2016 with an altered mental status, which was more consistent with a urinary tract infection. Her urinalysis was positive at that time, and she made a very rapid recovery after receiving antibiotics. She also had longstanding diarrhea, and had been diagnosed with Clostridium difficile. She had some brief treatment for the Clostridium infection, but apparently, she still continued to have daily diarrhea. She had essentially lost her appetite for eating also, and along with her agitation and diarrhea, it became a complete burden upon the sister to care for her anymore. The workup during her prior hospitalization was essentially fairly benign. She did have some evidence of hyperthyroidism secondary to extra thyroid replacement, and this was lowered. Apparently, she also was on multiple opiate medications, and was thought to have polypharmacy issues of abuse of opiates. She was furthermore on chronic warfarin therapy, and though she came in therapeutic on her last admission, she presently presents subtherapeutic on her warfarin therapy, for which she takes for a history of mitral and aortic mechanical valve replacements. She also has other medical issues such as a kidney transplant, for which she is on anti-rejection medication. All this being said, it is PATIENT'S NAME: MAGY PERES [facility] AGE: 65 Y [address] ROOM: [place] [address] LOCATION: [facility] [place] ADMIT DATE: 10/17/2016 Consultation DISCHARGE DATE: FAMILY PHYSICIAN: Anil Lopez MD ATTENDING PHYSICIAN: SHAYY BOB unclear if she was even taking her medications at home, considering the fact that her INR was subtherapeutic. Furthermore, with the persistence of diarrhea, I was concerned that this was contributing perhaps to her level of delirium. It is known that with poor nutrition and even malabsorption, that perhaps some vitamins such as thiamine could become eventually deficient over the course of many months. It has been known that she has this chronic Clostridium difficile issue. Thus, upon her presentation here to the hospital, I recommended starting the patient on thiamine 100 mg daily. CAT scan of the brain was performed, which did not reveal any evidence of a stroke that would possibly be associated with her persistence of delirium and/or type of Wernicke type of an aphasia. By the time I saw the patient the next morning, she was significantly improved. She did have two doses of the thiamine, which may have contributed to some improvement. Furthermore, I see that she was started on an antibiotic therapy, possibly in the setting of a UTI, though the urinalysis as mentioned was not necessarily supportive of a urinary tract infection. SOCIAL HISTORY: The patient did smoke in the past. She resides at home with her . PAST MEDICAL HISTORY: Her medical history does include 1. Clostridium difficile colitis. 2. As mentioned, mechanical valve replacements of the mitral and aortic valves. She is on long-term anticoagulation. 3. She had a history of PE. 4. History of kidney transplant. 5. Episodes of recurrent diastolic congestive heart failure. 6. Obstructive sleep apnea, on a BiPAP. 7. Fibromyalgia. 8. Gastritis. 9. Chronic pain issues of the back, for which she had been taking opiates up until her last admission, which had resulted in some weaning off her dependency on these medications. CURRENT MEDICATIONS: Include 1. Warfarin therapy 2 mg on Monday, Monday, Monday, and ; and 3 mg on Monday currently. 2. Thiamine 100 mg p.o. daily. 3. Aspirin 81 mg p.o. daily. 4. Amlodipine 10 mg p.o. daily. 5. Escitalopram 20 mg p.o. daily. 6. Tacrolimus 2 mg p.o. q.a.m. and tacrolimus 1 mg p.o. at bedtime. 7. Carvedilol 25 mg p.o. b.i.d. PATIENT'S NAME: MAGY PERES [facility] AGE: 65 Y [address] ROOM: [address] [address] LOCATION: [facility] [place] ADMIT DATE: 10/17/2016 Consultation DISCHARGE DATE: FAMILY PHYSICIAN: Anil Lopez MD ATTENDING PHYSICIAN: SHAYY BOB 8. Pantoprazole 40 mg daily. 9. Mycophenolate mofetil 750 mg p.o. b.i.d. 10. Magnesium oxide 400 mg p.o. b.i.d. 11. Olanzapine 5 mg p.o. q.8 hours p.r.n. agitation. PHYSICAL EXAMINATION: GENERAL/NEUROLOGIC/PSYCHIATRIC: The patient was seen initially in the Emergency Room, and she had extremely poor focus. She was agitated and screaming. She was not able to put sentences together, and would seem to answer very simple commands such as moving a limb, but was unable to calm down to answer questions. She was picking at her clothing, and wanted to jump out of the bed. After careful talking to the patient and allaying her fears, the patient was brought to the floor. Overnight, the patient did stabilize and received thiamine that day. Upon my seeing the patient on the next day, she seemed to have made a dramatic improvement. She was answering questions all appropriately. She did have a good orientation to time and to situation surprisingly. Cranial Nerves: Pupils were equal and reactive to light and accommodation. Extraocular muscles appeared normal, though she did have some mild proptosis to both eyes. There was normal facial symmetry and sensation. She had a normal symmetric power of 5/5 grade. She did seem a bit agitated, and had some mild fine tremors of the upper extremities. The tone of her upper and lower extremities was normal. Upon standing up, the patient did not wobble. She was able to follow commands to ambulate and was non-ataxic. Her exam was grossly intact. Motor exam, deep tendon reflexes were symmetric at +1 in the upper and lower extremities. BASIC LABORATORY RESULTS: Revealed normal electrolytes including sodium, potassium, and chloride. Glucose was also within normal range and creatinine was at a fair baseline of 1.3. There was no elevation of liver enzymes. There was normal AST and ALT, and bilirubin was normal. White count was normal. There was noted some mild anemia with an MCV of 86.9 and platelet count was normal. INR on presentation was subtherapeutic at 1.08; now at 1.20. IMPRESSION AND RECOMMENDATIONS: The clear etiology for the patients having day upon day of confusion that was lasting for literally two and a half weeks, is somewhat obscure. It is quite possible that with poor nutrition, especially in the setting of malabsorption syndrome along with some chronic diarrhea, that thiamine replacement was a smith issue here. With poor nutrition in general, as much as one would see in a person who is alcoholic, which the person clearly is not, one could develop a thiamine deficiency and have a Wernicke encephalopathy. This is a type of delirium state that could go on unabated, but she did not have the full issue with ophthalmoplegia. Certainly, there did seem to be an improvement after supplementation of the thiamine, which she should certainly continue the PATIENT'S NAME: MAGY PERES [facility] AGE: 65 Y [address] ROOM: [id number] [place], [place] [address] LOCATION: [facility] [place] ADMIT DATE: 10/17/2016 Consultation DISCHARGE DATE: FAMILY PHYSICIAN: Anil Lopez MD ATTENDING PHYSICIAN: SHAYY BOB appropriate treatment for the Clostridium difficile diarrhea, is thus critical over time, so she can get a better nutrition with time. It would be hard to say that antibiotics overnight would have improved her mental status so quickly, and I was clear that in speaking to the sister, that her persistence of delirium was ongoing for days on end, and never broke like it did here in the hospital. We would often see this type of presentation in some person who had early forms of dementia such as Lewy body dementia, but by history, according to the sister, she does not have any evidence for dementia. Her memory is reported to me to be generally very good, and her behavior in general, is reported to be not consistent with a person who has early forms of dementia with delirium episodes. At this point in time, the patient does not require any followup imaging of the brain, as the CAT scan is really not showing any evidence to support left-sided stroke that could have been caused by an embolic event due to the patient being subtherapeutic on her INR. Certainly, we would have seen some evidence of a stroke in the left brain, but this is not the case. Continue to follow along with the Hospitalist Service on Ms. Peres's status. MD TINO DE LA CRUZ/raheell /[id number] d: 10/20/16 0117 t: 10/27/16 1402, CONSULTATION REPORT
--- NOTE | ~2016-10-17 | CON ---
PATIENT'S NAME: WENDY PERES [facility] AGE: 65 Y [address] ROOM: [place] [address] [place] [facility] [place]: 10/17/2016 Consultation DISCHARGE DATE: FAMILY PHYSICIAN: Anil Lopez MD ATTENDING PHYSICIAN: SHAYY BOB DATE OF CONSULTATION: 10/19/2016 REFERRING PHYSICIAN: DORITA HOLLEY MD REQUESTING PHYSICIAN: Shayy Bob M.D. REASON FOR CONSULTATION: Recurrent C. diff colitis. HISTORY OF PRESENT ILLNESS: Wendy is a 65-year-old female, whom I was asked to see today in consultation by Dr. Bob for further evaluation and recommendations regarding recurrence of Clostridium difficile colitis. The patient has a history of severe and relapsing C. diff colitis going back over one year. She had a fecal melania transplant about one year ago. She is a poor historian and it is unclear if she has had problems until recently, but she was admitted on 10/17/2016 with confusion. There was no fever. The white count was 8.4000. She was not noted to have diarrhea just prior to this admission, but she has had diarrhea since admission. It was again positive for Clostridium difficile. PAST MEDICAL HISTORY: As above, also prior mitral and aortic valve replacements, history of PE, congestive heart failure, obstructive sleep apnea, peripheral vascular disease, and renal transplant recipient. ALLERGIES: NONE NOTED. CURRENT MEDICATIONS: See the MAR for complete listing. She was initially on Zosyn here, then changed to ceftriaxone. She is also on oral Flagyl for antibiotics. SOCIAL HISTORY: No tobacco or alcohol abuse history to my knowledge. FAMILY HISTORY: Unremarkable and noncontributory to current illness. REVIEW OF SYSTEMS: PATIENT'S NAME: WENDY PERES [facility] AGE: 65 Y [address] ROOM: [address] [address] [place] [facility] [place]: 10/17/2016 Consultation DISCHARGE DATE: FAMILY PHYSICIAN: Anil Lopez MD ATTENDING PHYSICIAN: SHAYY BOB A complete review of systems was carried out, and was remarkable only as noted. Please refer to the admission history and physical for complete details. OBJECTIVE: GENERAL: She appeared comfortable and was in no acute distress. She did not appear entirely oriented, but was pleasant and conversant. VITAL SIGNS: Temperature is 36.7, blood pressure 119/74, and pulse 73. HEENT: Posterior pharynx clear, no adenopathy or thyromegaly. Cranial nerves are intact. Neck: Supple. CHEST: Clear to auscultation. CARDIOVASCULAR: Regular rate and rhythm without obvious S3, S4, or murmur. ABDOMEN: Soft, nontender, no hepatosplenomegaly or masses. Bowel sounds were hyperactive. EXTREMITIES: Unremarkable. NEUROLOGIC: Strength and sensation grossly intact. PSYCHIATRIC: Behavior and affect appropriate. LABORATORY DATA: White count 6.6. Creatinine 1.3. Liver function test normal. MICROBIOLOGY: Stool for C. diff, 10/18/2016, positive. Blood cultures x2, 10/17/2016, no growth to date. Urine culture, 10/17/2016, shows mixed melania with greater than 100,000 colony-forming units of Gram-negative bacteria. Urinalysis shows 2 to 5 white cells per high-powered field. C. diff assay was positive also on 08/31/2016. RADIOLOGY: Chest x-ray, 10/17/2016, shows cardiomegaly, no parenchymal changes. CT of the head, 10/17/2016, is normal. IMPRESSION: 1. Relapsed Clostridium difficile colitis - this has been recurrent and recalcitrant problem, probably due to her immunodeficiency while on immunosuppression for renal transplant. She has had a fecal transplant in the past and I suspect she will end up requiring this regimen again, otherwise she may require colectomy. I am not optimistic that this will respond to medical therapy. 2. Bacteriuria without significant pyuria, therefore would not treat. 3. Renal transplant recipient. Other diagnoses are stable, as noted above. PATIENT'S NAME: WENDY PERES [facility] AGE: 65 Y [address] ROOM: [place] [address] [place] [facility] [place]: 10/17/2016 Consultation DISCHARGE DATE: FAMILY PHYSICIAN: Anil Lopez MD ATTENDING PHYSICIAN: SHAYY BOB PLAN: We will change to fidaxomicin 200 mg twice daily for the next 10 days. If she does not clearly respond to this in the next 48 to 72 hours, I would recommend Gastroenterology consultation with consideration of a fecal melania transplant. The ceftriaxone, which she was on for urinary tract infection, will be stopped. Thank you for this consultation. We will see her back in one week for reevaluation if still here. I am available to answer questions by phone at [phone]. MD LAURO TOBIN/raheell /[id number] CC: Shayy Bob MD d: 10/19/16 182 t: 10/20/16817, CONSULTATION REPORT
--- NOTE | ~2016-10-17 | ER ---
PATIENT'S NAME: MAGY PERES [facility] AGE: 65 Y [address] ROOM: [id number] [place], [place] [address] [place] [facility] [place] DATE: 10/17/2016 ER/Outpatient Report DISCHARGE DATE: FAMILY PHYSICIAN: Anil Lopez MD ATTENDING PHYSICIAN: SHAYY BOB CHIEF COMPLAINT: Altered mental status and agitation. HISTORY OF PRESENT ILLNESS: The patient presented to [facility] today for her mental status changes. The sister accompanies her in the ER today after ambulance transfer. The sister gives the chief history and she notes the patient has been like this for over 3 weeks and continuing to get worse. This sister notes the patient has not slept in three days. She notes that a few weeks ago she was in [facility] for this similar presentation and has never gotten any better. The patient has an extensive medical history including renal transplant and aortic valve replacement and was recently here at the beginning of August for hospitalization as well. Her primary care is Dr. Lopez who referred her here for evaluation today. The sister does note that she fell out of bed two days ago but has not noticed any significant changes since then. It is unclear whether or not. She has been taking her medications or how well she has been receiving care. We have been unable to contact the family for further evaluation of her current history. PAST MEDICAL HISTORY: Documented on the record and reviewed by me. SOCIAL HISTORY: Documented on the record and reviewed by me. ALLERGIES: DOCUMENTED ON THE RECORD AND REVIEWED BY ME. REVIEW OF SYSTEMS: All systems reviewed and negative except as noted in the HPI. PHYSICAL EXAMINATION: VITAL SIGNS: Blood pressure 163/88, pulse is 70, respiratory rate is 28, temperature is 99 degrees, SpO2 is 96% on room air. Pain appears to be minimal. GENERAL: Delirious appearance female, disheveled, appearing older than her stated age. No obvious distress with no overt signs of pain. NEUROLOGIC: The patient is awake. She is interactive. She has difficulty finding words but is able to speak, otherwise, without difficulty. She is PATIENT'S NAME: MAGY PERES [facility] AGE: 65 Y [address] ROOM: [address] [address] [place] [facility] [place] DATE: 10/17/2016 ER/Outpatient Report DISCHARGE DATE: FAMILY PHYSICIAN: Anil Lopez MD ATTENDING PHYSICIAN: SHAYY BOB very agitated and does use some profanity. She is slowly redirectable and does tend to mimic her examiner with speech patterns. She does move all extremities appropriately spontaneously and to command. She does not know the date but knows that she is at [facility]. She does not have any obvious asymmetry on her exam. HEENT: Grossly normocephalic and atraumatic. The eyes are PERRL with exophthalmos. The oropharynx is grossly clear. NECK: Supple. Trachea is midline. HEART: Regular rate and rhythm with a mechanical murmur best heard at the right upper sternal border. LUNGS: Grossly clear to auscultation bilateral with no rhonchi, wheezes, or rales. ABDOMEN: Soft, nontender, and nondistended. No rebound or guarding. BACK: Back is grossly normal to inspection and palpation. No obvious abnormalities. EXTREMITIES: Grossly warm and well perfused with multiple areas of ecchymosis. No obvious deformities. Unclear which arm has functioning fistula. SKIN: Otherwise, warm, dry, and intact except as noted above. : No obvious infections externally. LABORATORY DATA AND X-RAYS: EKG rhythm strip was obtained without definitive EKG, which did reveal what appears to be sinus rhythm with no obvious abnormalities, rate is approximately 80. Labs: Phosphorus is 3.6. Magnesium is 1.8. Ammonia is below detectable threshold. CMS is notable for glucose of 120, BUN of 37, creatinine 1.5, GFR of 35, both of which appeared to be her baseline. No elevation of LFTs or bilirubin. Amylase and lipase are 30 and 71 respectively. Troponin is below threshold. CRP is 3.98. Free T4 is 1.3. TSH is 0.029. Urinalysis with 25 leukocytes, no nitrites, minimal blood, wbc's of 2 to 5, rbc 0 to 2, epithelial 2 to 5, bacteria is moderate. WBC is 8.4, hemoglobin is 9.9, and platelets of 336. INR is 1.08. Serum lactate 0.6. IMPRESSION: 1. Encephalopathy. 2. Subtherapeutic INR. 3. Possible urinary tract infection. 4. Delirium secondary to above. 5. Baseline chronic renal failure in a transplant. 6. Severe hyperthyroidism without thyroid storm. EMERGENCY DEPARTMENT COURSE: The patient was seen and evaluated as above. She was not appropriate for an PATIENT'S NAME: MAGY PERES [facility] AGE: 65 Y [address] ROOM: [address] [place] [id number] LOC[place]: [facility] [place] ADMIT DATE: 10/17/2016 ER/Outpatient Report DISCHARGE DATE: FAMILY PHYSICIAN: Anil Lopez MD ATTENDING PHYSICIAN: SHAYY BOB IV and thus that was deferred until she had calmed down somewhat. Labs were obtained after review of prior medical records. Based on her current presentation, she definitely has delirium. The exact etiology is unclear. Urinalysis is concerning for contamination, however, it is unclear. Her INR is subtherapeutic. Based on review of records, hyperthyroidism appeared to be related to her medications previously, but with persistence there is question regarding her current medications at home. We are unable to verify her current situation in receipt of those medications which is particularly suspect in giving her INR of 1 with a mechanical valve and she clearly has not been taking her anticoagulation. For that reason, she was started on heparin per Dr. Bob after an IV was established. We were unable to obtain an EKG to ensure normal QTc prior to transfer to the floor based on staffing issues in the emergency department to verify appropriate QTc prior to administration of Haldol. Please see Dr. Bob's notes for further evaluation and treatment. All questions were answered, and the patient was admitted without further issue. MD ANNETTE LOUIS/carito /[id number] d: 10/18/167 t: 10/25/16 2153, OUTPATIENT REPORT
--- NOTE | ~2016-10-17 | HP ---
PATIENT'S NAME: MAGY PERES [facility] AGE: 65 Y [address] ROOM: [place] [address] LOCATION: [facility] ADMIT DATE: 10/17/2016 History & Physical DISCHARGE DATE: FAMILY PHYSICIAN: Anil Lopez MD ATTENDING PHYSICIAN: SHAYY BOB DATE OF SERVICE: CHIEF COMPLAINT: Confusion. HISTORY OF PRESENT ILLNESS: This is a 65-year-old female, who is a frequent flyer to [facility], who was recently discharged from the services of the hospitalist in August this year. Please check the discharge summary which was done by Dr. Joyce for details of her hospital stay. Unable to obtain history from the patient as she is confused and cannot remember much of what has been going on, but history was obtained from the sister, who is not the caregiver; daughter is the caregiver and is not present. Sister says that this morning, the patient was taken in to see her family doctor, Dr. Anil Lopez, and after evaluating the patient, he recommended for patient to be transferred to the ER for further evaluation secondary to her confusion. Sister says that for the past 2 days, the patient has not been able to sleep. She also reported that three weeks ago, the patient was admitted to [facility], but does not know the details of the hospital stay. When asked, the patient notes pain on bilateral sides of her neck. She also denies loss of appetite, but the sister does not agree with this. The patient denies chest pain. She denies diarrhea. She denies abdominal pain. She denies headache. Per the ER doctor, on arrival, the patient was confused and agitated and restless. The patient also denied fever. She denies any urinary symptoms. However, the reliability of this history is pretty poor, given her confusion. REVIEW OF SYSTEMS: The 13 elements of review of systems were asked and are as documented in the HPI, the others are negative. PAST MEDICAL HISTORY: Includes 1. History of recurrent C. diff. 2. Mechanical mitral valve and also aortic valve replacement. 3. History of PE. 4. Diastolic congestive heart failure. 5. Obstructive sleep apnea, on BiPAP. 6. Peripheral vascular disease. 7. Fibromyalgia. PATIENT'S NAME: MAGY PERES [facility] AGE: 65 Y [address] ROOM: [address] [address] LOCATION: [facility] ADMIT DATE: 10/17/2016 History & Physical DISCHARGE DATE: FAMILY PHYSICIAN: Anil Lopez MD ATTENDING PHYSICIAN: SHAYY BOB 8. Gastritis. 9. Chronic pain. 10. Also, opiate dependence. PAST SURGICAL HISTORY: Includes 1. Fecal transplant. 2. Multiple fractures. 3. Kidney transplant. 4. Right AV fistula. 5. Mitral valve replacement. 6. Also, aortic valve replacement. SOCIAL HISTORY: She lives with her daughter and her . She denies use of alcohol. She denies history of smoking. FAMILY HISTORY: Unable to obtain right now as the patient cannot remember much. PHYSICAL EXAMINATION: VITAL SIGNS: In the ER, temperature of 99, pulse of 88, respiratory rate of 12, blood pressure of 135/96, and oxygen saturation of 96% on room air. GENERAL: Reveals a female, who appears older than her stated age. She is awake, alert, and confused; not oriented to time, place, and person, maybe a little bit to person as she was able to remember me, but could not remember my name. NEUROLOGICAL: Cranial nerves II through XII are intact bilaterally. Sensory is intact bilaterally. Power is 4/5 in both upper extremities and 3/5 in both lower extremities. HEENT: Normocephalic and atraumatic. Pupils were equal and reactive to light bilaterally. Pharynx is normal. Mucosa is moist. Ears: No obvious ear discharge or drainage. There were no flapping tremors. NECK: Supple. There is no area of tenderness. No lymphadenopathy. CARDIOVASCULAR SYSTEM: Normal S1 and S2. Regular rate and rhythm. CHEST: Clear to auscultation bilaterally. ABDOMEN: Soft and nondistended. No area of tenderness. No palpable organomegaly. Positive bowel sounds. EXTREMITIES: There is no joint swelling or erythema or tenderness. SKIN: No rash or skin breakdown. LABORATORY DATA: Labs on admission, troponin was less than 0.040. WBC of 8.4, H and H of 9.9/31.3, and platelets of 336,000. Sodium is 135, potassium is 4.6, chloride is 103, CO2 is 25, calcium is 9.1, creatinine is 1.5, BUN is 37, glucose is PATIENT'S NAME: MAGY PERES [facility] AGE: 65 Y [address] ROOM: [place] [address] LOCATION: [facility] ADMIT DATE: 10/17/2016 History & Physical DISCHARGE DATE: FAMILY PHYSICIAN: Anil Lopez MD ATTENDING PHYSICIAN: SHAYY BOB 120, and phosphorus is 3.6. Liver function tests were within normal limits. Magnesium of 1.8. Ammonia was less than 10. Procalcitonin was less than 0.05. INR is 1.08. UA: Yellow, leukocytes were 25, nitrite was negative, wbc were 2 to 5, and bacteria were moderate. Amylase of 30 and lipase of 71. CRP is 3.98. TSH was 0.029 and FT4 was 1.3. Microbiology: Blood cultures x2 sets are pending. RADIOLOGY: Chest x-ray is reported as very little change, no acute findings. No pneumonia or acute CHF. CT of the head was reported as normal. CT scan of the head with no change from prior examination. ASSESSMENT AND PLAN: This is a 65-year-old female, who comes in with confusion. 1. Acute encephalopathy probably secondary to delirium of unknown etiology. There is no obvious source of an infection. Her procalcitonin was less than 0.05. WBC is within normal limits. UA appears okay. However, we will follow up on urine culture and blood culture, and we will start her empirically on Zosyn till we get the results of the cultures available. We will also get a Neurology consult. Dr. Cooper has been called. 2. Subtherapeutic INR. It is evident that the patient has not been taking her Coumadin, so we will start the patient on a heparin drip for the mechanical mitral valve which she has. We will also get an echocardiogram in the morning to evaluate the status of the valve to make sure there is no clot. 3. Hyperthyroidism secondary to Synthroid. However, the patient has been off Synthroid for a while now. Her TSH appears to be slowly improving compared to the one on last admission, and her FT4 is within a normal value now. We will continue to hold her Synthroid. 4. Mechanical mitral valve with subtherapeutic INR. We will start the patient on heparin drip. 5. Chronic diastolic congestive heart failure is stable, not decompensated. 6. Obstructive sleep apnea, on BiPAP. We will continue the patient on her home setting of BiPAP. Please note that the above diagnoses are all present on admission. The line of management was explained to the patient's sister, who did not have any questions at this time. MD REX FISHMAN/carito PATIENT'S NAME: MAGY PERES [facility] AGE: 65 Y [address] ROOM: [place] [address] LOCATION: [facility] ADMIT DATE: 10/17/2016 History & Physical DISCHARGE DATE: FAMILY PHYSICIAN: Anil Lopez MD ATTENDING PHYSICIAN: SHAYY BOB /[id number] D: [id number] T: [id number] HISTORY & PHYSICAL
--- NOTE | ~2016-10-17 | CON ---
PATIENT'S NAME: WENDY PERES [facility] AGE: 65 Y [address] ROOM: [address] [address] [place]: [facility] [place] DATE: 10/17/2016 Consultation DISCHARGE DATE: FAMILY PHYSICIAN: Anil Lopez MD ATTENDING PHYSICIAN: SHAYY BOB DATE OF CONSULTATION: 10/22/2016 REFERRING PHYSICIAN: DORITA COOPER MD IDENTIFYING INFORMATION/REASON FOR CONSULT: Wendy is a 65-year-old, , white female, admitted to [facility] initially on 10/17/2016 with mental status changes. The family has been declining for the last couple of months now. The states that there has been this evolving speech impediment and inability to take care for self, which has been fairly consistent for the last 6-8 weeks. Over here, evaluated by Dr. Cooper and the note is available. The patient was also evaluated along with the . HISTORY OF PRESENT ILLNESS: Wendy herself was fairly alert and awake, what was the most obvious was some dysarthria, able to understand questions and she knew what she had to say, but meteorically having a difficult time in articulating her words, almost like a stutter, but told me that she was at [facility] and she has been here for about five days. Talks about how she does not feel good but very obscure about what specifically was not right, talked about not sleeping well and being quite anxious. The was present and able to give history, talked about how the speech impediment has been fairly consistent for the last 2 months, talked about how they have seen Dr. Cooper before and the workup did not indicate any stroke. Also, she was at the [facility] and "they just wanted to put her away." does talk about some memory issues which have been slowly becoming evident, also has been needing increasing care in terms of supervision and some physical support as well in managing her ADLs. The and the daughter together have been taking turns to care for. Sees Dr. Lopez. She used to be on Xanax, Klonopin, and hydrocodone. There is a history of Wendy overusing pain medications and benzodiazepines, since she has been here in the last five days. The benzos and pain medications have been completely stopped which likely are precipitating some of the anxiety. Vitals are within normal limits. No elements of any acute psychotic phenomena, does get agitated, but no physical aggression. No suicidal or homicidal ideations. Also other contributing issues are C diff and is on heparin drip along with thiamine supplementation. MEDICAL HISTORY: PATIENT'S NAME: WENDY PERES [facility] AGE: 65 Y [address] ROOM: [place] [address] LOCATION: [facility] ADMIT DATE: 10/17/2016 Consultation DISCHARGE DATE: FAMILY PHYSICIAN: Anil Lopez MD ATTENDING PHYSICIAN: SHAYY BOB C diff, history of kidney transplant, congestive heart failure, obstructive sleep apnea, chronic pain issues. PERSONAL AND SOCIAL HISTORY: Lives with her . History of anxiety for which she was taking the benzodiazepines and also history of being medication seeking per the information available from the . MENTAL STATUS EXAMINATION: Lying in her bed, able to understand questions, follow directions, gave responses which were fairly accurate. Basic questions about orientation were asked and the patient responded them accurately and knew that she was in the hospital and she was here for the last five days. Also able to catch on to conversation and join in. The main obvious thing was that this dysarthria which was quite obvious per the , consistent for the last several weeks and very aggravating and frustrating for the patient. Open to medication changes. No suicidal or homicidal ideations. No elements of any psychosis. Attention concentration is poor. Cognitive deficits were not accurately assessed because of the patient's uncooperative state. Judgment insight is poor. DIAGNOSES: 1. Delirium, resolving etiology unclear. 2. Anxiety disorder, other specified. 3. Dysarthria. ASSESSMENT AND PLAN: Agree with Dr. Cooper, the etiology seems quite obscure. Based on his one time assessment and not having a lot of baseline information and background information, it would be difficult to come up with accurate diagnosis. At this time, the focus will be on giving the patient relief. Various contributing factors could be complete cessation off the benzodiazepines and the pain medications. In the last five days that she has been here, unclear how much, what she actually consuming when she was at home, but could explain the exacerbation of her anxiety and apprehension which sometimes can explain the worsening dysarthria. The confusion itself seems to be clearing up. At this time, does not come across as delirious. At this time, we will try the following medication changes. 1. Discontinue the Seroquel. 2. We will try a hypertensive agent, Risperdal to be started at 0.5 mg t.i.d. from tomorrow (0.25 mg t.i.d. for the 1st day). 3. Utilize trazodone 100 mg at bedtime, for helping with sleep. Please call with any concerns. I will update in the next couple of days. PATIENT'S NAME: WENDY PERES [facility] AGE: 65 Y [address] ROOM: [place] [address] LOCATION: [facility] ADMIT DATE: 10/17/2016 Consultation DISCHARGE DATE: FAMILY PHYSICIAN: Anil Lopez MD ATTENDING PHYSICIAN: SHAYY BOB MD HERLINDA DWYER/carito /[id number] d: 10/22/16 1748 t: 10/24/16 1412, CONSULTATION REPORT
[~2016-10-17 14:54] MED LIST changes: -BUMEX1 MG PO; -COREG25 MG PO; -DESYREL100 MG PO; -FOLIC ACID1 MG PO; -HYDROCODON-ACE1 EAC2 PO; -KLONOPIN0.5 MG PO; -PROBIOTIC1 EAC1 PO; -PROVENTIL OR V6.7 GM INH; -RISPERDAL0.5 MG PO; -TYLENOL EXTRA500 MG PO
[2016-10-17 15:32] LABS: BASOPHIL # 0.1 K/uL (0.0-0.2); BASOPHIL % 0.6 %; EOSINOPHIL # 0.3 K/uL (0.0-0.5); HEMATOCRIT 31.3 % (33.0-46.0); HEMOGLOBIN 9.9 g/dL (10.0-15.0); IMMATURE GRANULOCYTE # 0.1 K/uL (0.0-0.3); IMMATURE GRANULOCYTE % 0.7 %; LYMPHOCYTE # 0.9 K/uL (0.8-4.0); LYMPHOCYTE % 11.1 %; MCH 27.5 pg (27.0-34.0); MCHC 31.6 gm/dL (32.0-36.5); MCV 86.9 fl (83.0-98.0); MONOCYTE # 0.9 K/uL (0.0-1.0); MONOCYTE % 10.3 %; NEUTROPHIL # (ANC) 6.1 K/uL (1.8-7.8); NEUTROPHIL % 73.3 %; NRBC % 0 /100WBC (0-0.00); RDW-CV 14.1 % (11.9-14.6); WBC 8.4 K/uL (4.0-11.0)
[2016-10-17 15:33] LABS: PLATELET COUNT 336 K/uL (150-450)
[2016-10-17 15:34] LABS: BILIRUBIN URINE NEGATIVE (NEGATIVE); BLOOD URINE 10 /UL (NEGATIVE); COLOR URINE YELLOW (YELLOW); GLUCOSE URINE NEGATIVE (NEGATIVE); KETONE URINE NEGATIVE (NEGATIVE); LEUKOCYTES URINE 25 /UL (NEGATIVE); NITRITE URINE NEGATIVE (NEGATIVE); PROTEIN URINE 100 mg/dL (NEGATIVE); TURBIDITY URINE CLEAR (CLEAR); UROBILINOGEN URINE NORMAL (NORMAL)
[2016-10-17 15:44] LABS: INR - (THERAPEUTIC) 1.08 (0.92-1.07); PROTIME 11.4 SECONDS (9.8-11.4); PTT 33 SECONDS (25-32)
[2016-10-17 15:51] LABS: BACTERIA URINE MODERATE (NEGATIVE); MUCUS URINE 1+ (NEGATIVE); RBC URINE 0-2 #/HPF (NEGATIVE); RENAL EPITH URINE 0-2 #/HPF (NEGATIVE); WBC CLUMPS URINE RARE (NEGATIVE)
[2016-10-17 15:59] LABS: ALBUMIN 3.6 gm/dL (3.5-5.0); ALK PHOS 79 IU/L (33-138); ALT 15 IU/L (12-78); ANION GAP 11.6 (10.0-19.0); AST 15 IU/L (10-40); BLOOD UREA NITROGEN 37 mg/dL (6-24); CALCIUM 9.1 mg/dL (8.5-10.5); CHLORIDE 103 mMol/L (96-110); CO2 25 mMol/L (22-32); CREATININE 1.5 mg/dL (0.5-1.1); ESTIMATED GFR (MDRD EQUATION) 35; POTASSIUM 4.6 mMol/L (3.7-5.1); SODIUM 135 mMol/L (135-145); TOTAL BILIRUBIN 0.4 mg/dL (0.0-1.5)
[2016-10-17 17:13] LABS: MAGNESIUM 1.8 mg/dL (1.8-2.6); PHOSPHORUS 3.6 mg/dL (2.5-4.9)
[2016-10-17 20:19] LABS: BASOPHIL % 0.5 %; EOSINOPHIL # 0.3 K/uL (0.0-0.5); EOSINOPHIL % 4.2 %; HEMATOCRIT 30.7 % (33.0-46.0); HEMOGLOBIN 9.6 g/dL (10.0-15.0); IMMATURE GRANULOCYTE # 0.1 K/uL (0.0-0.3); IMMATURE GRANULOCYTE % 0.6 %; LYMPHOCYTE # 0.8 K/uL (0.8-4.0); LYMPHOCYTE % 9.9 %; MCH 27.2 pg (27.0-34.0); MCHC 31.3 gm/dL (32.0-36.5); MONOCYTE # 0.6 K/uL (0.0-1.0); MONOCYTE % 7.1 %; NEUTROPHIL # (ANC) 6.2 K/uL (1.8-7.8); NEUTROPHIL % 77.7 %; NRBC % 0 /100WBC (0-0.00); PLATELET COUNT 344 K/uL (150-450); RBC 3.53 M/uL (3.50-5.50); RDW-CV 14.3 % (11.9-14.6); WBC 7.9 K/uL (4.0-11.0)
[2016-10-17 20:28] LABS: PROTIME 11.6 SECONDS (9.8-11.4)
[2016-10-17] MEDS ORDERED: COREG25 MG PO (20:36)
[2016-10-17] MEDS ORDERED: MAG-OX-400(241400 MG PO (20:40)
[2016-10-17] MEDS ORDERED: KLONOPIN0.5 MG PO (20:43)
[2016-10-17] MEDS ORDERED: COUMADIN ** 9/62 MG PO (20:43)
[2016-10-17] MEDS ORDERED: HYDROCODON-ACE1 EAC2 PO (20:44)
[2016-10-17] MEDS ORDERED: PROVENTIL OR V6.7 GM INH (20:44)
--- NOTE | 2016-10-17 21:51 | NUR ---
65 Y/O FEMALE ADMITTED FOR DELERIUM. ALLERGIES - CODEINE, TORADOL, MORPHINE, IODINATED CONTRAST DYE, SENSIPAR, ALSO CANNOT TAKE NSAIDS DUE TO KIDNEY TRANSPLANT PT MEDICAL & SURGICAL HISTORY - PLEASE SEE ADMISSION ASSESMENT PART ONE FOR THIS EXTENSIVE HISTORY.
--- NOTE | 2016-10-18 04:58 | NUR ---
Significant Event: Patient is alert and oriented to self. To place at times. Disoriented to time. Disorganized, garbled speech. Confused. Follows some commands. Restless and agitated at times. Resting comfortably at this time. Bed alarm on at all times. VSS on 2L of O2. Incontinent of urine at times. Noted scattered bruising throughout. IV near left armpit with D5NS running at 75 ml/hr and heparin gtt running at 900 units. Next PTTHP at 0630. Receiving intermittent antibiotics. Takes meds whole, no issues. 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 Follow up:
[2016-10-18 08:10] LABS: BASOPHIL # 0.1 K/uL (0.0-0.2); BASOPHIL % 0.9 %; EOSINOPHIL # 0.5 K/uL (0.0-0.5); EOSINOPHIL % 7.4 %; HEMATOCRIT 33.9 % (33.0-46.0); HEMOGLOBIN 10.6 g/dL (10.0-15.0); IMMATURE GRANULOCYTE % 0.6 %; LYMPHOCYTE # 0.8 K/uL (0.8-4.0); LYMPHOCYTE % 11.3 %; MCH 27.6 pg (27.0-34.0); MCHC 31.3 gm/dL (32.0-36.5); MCV 88.3 fl (83.0-98.0); MONOCYTE # 0.5 K/uL (0.0-1.0); MONOCYTE % 7.6 %; MPV 8.9 fl (9.4-12.4); NEUTROPHIL # (ANC) 4.8 K/uL (1.8-7.8); NEUTROPHIL % 72.2 %; NRBC % 0 /100WBC (0-0.00); PLATELET COUNT 341 K/uL (150-450); RBC 3.84 M/uL (3.50-5.50); RDW-CV 14.3 % (11.9-14.6); WBC 6.6 K/uL (4.0-11.0)
[2016-10-18 08:27] LABS: ANION GAP 14.5 (10.0-19.0); CALCIUM 8.7 mg/dL (8.5-10.5); CREATININE 1.2 mg/dL (0.5-1.1); POTASSIUM 4.5 mMol/L (3.7-5.1)
--- NOTE | 2016-10-18 13:01 | NUR ---
RECEIVED CALL FROM ELIZABETH IRVING WITH [facility]. SHE REPORTS THAT THEY HAVE BEEN SEEING MAGY AND THE PLAN IS FOR HER TO GO TO [facility] ONCE SHE IS READY FOR DISCHARGE.
--- NOTE | 2016-10-18 13:14 | NUR ---
REFERRAL MADE TO MELANI IRVING AT [facility]. SHE WOULD LIKE FOR ME TO FAX INFO TO HER SHE WILL REVIEW IT AND GET BACK TO ME TO WHETHER OR NOT THEY CAN ACCEPT PATIENT. UPDATE Jeanie COLLINS APRN.
--- NOTE | 2016-10-18 14:00 | NUR ---
SPOKE TO MAGY AND HER SISTER AT THE BEDSIDE. PATIENT IS DISORIENATED TIMES THREE. UPDATED HER THAT I HAVE RECEIVED CALL FROM ALEX WITH [facility] AND THEY HAD MADE REFERRAL FOR HER TO GO TO LOCATED WITHIN [facility] AND SHE IS IN AGREEMENT TO THIS. WILL CONT TO FOLLOW NEEDED.
--- NOTE | 2016-10-18 17:28 | NUR ---
Significant Event:PT CONFUSED AND DELERIUM NOTED. SLURRED SPEACH AND GAIT IS VERY UNSTEADY. UP TO COMMODE ONLY. HAD 4 LOOSE STOOLS TODAY AND C-DIFF POSITIVE. ALSO HAS UTI. IV ASHLEY. INC OF URINE AND STOOL BUT SOMETIMES MAKES IT TO THE COMMODE. IN ISOLATION FOR C-DIFF. YELLING AT TIMES. NO PAIN MEDS GIVEN OR ORDERED. PT SLEPT MOST OF AFTERNOON. Follow up:
--- NOTE | 2016-10-19 03:46 | NUR ---
Significant Event: PATIENT IS DISORIENTED TO PLACE AND TIME. SHE WAS PLEASANT AT BEGINNING OF SHIFT BUT QUICKLY BECAME AGITATED AND YELLING VERY LOUDLY. PATIENT DID NOT WANT TO CALM DOWN INSISTING THAT SHE RECEIVE HER "INJECTION" (ZYPREXA) WHICH WAS ADMINISTERED AT 2103. SHE CONTINUED TO BE AGITATED, YELLING AND ATTEMPTING TO GET UP WITHOUT ASSISTANCE. DR. BUTT CONTACTED AND HOME DOSE OF KLONOPIN ORDERED/ADMINISTERED. THIS ALSO DID NOT HELP THE SCREAMING. CONTACTED AGAIN TO RECEIVE PERCOCET ORDER. THIS IS ADMINISTERED TO HER AND SHE INSTANTLY BECOMES COOPERATIVE AND NON-COMBATIVE. THIS WAS ADMINISTERED AT 0200. BED ALARM AT ALL TIMES. Follow up:
[2016-10-19 05:30] LABS: BASOPHIL % 0.5 %; EOSINOPHIL # 0.4 K/uL (0.0-0.5); EOSINOPHIL % 6.1 %; HEMATOCRIT 28.4 % (33.0-46.0); IMMATURE GRANULOCYTE % 0.6 %; LYMPHOCYTE # 0.7 K/uL (0.8-4.0); LYMPHOCYTE % 11.1 %; MCH 27.5 pg (27.0-34.0); MCHC 31.7 gm/dL (32.0-36.5); MCV 86.9 fl (83.0-98.0); MONOCYTE # 0.5 K/uL (0.0-1.0); MONOCYTE % 7.9 %; MPV 8.9 fl (9.4-12.4); NEUTROPHIL # (ANC) 4.9 K/uL (1.8-7.8); NEUTROPHIL % 73.8 %; NRBC % 0 /100WBC (0-0.00); PLATELET COUNT 339 K/uL (150-450); RBC 3.27 M/uL (3.50-5.50); RDW-CV 14.4 % (11.9-14.6); WBC 6.6 K/uL (4.0-11.0)
[2016-10-19 05:43] LABS: PROTIME 12.6 SECONDS (9.8-11.4)
[2016-10-19 05:45] LABS: ANION GAP 10.1 (10.0-19.0); CALCIUM 8.4 mg/dL (8.5-10.5); CREATININE 1.3 mg/dL (0.5-1.1); POTASSIUM 4.1 mMol/L (3.7-5.1)
--- NOTE | 2016-10-19 17:32 | NUR ---
Significant Event: PT ALERT, DISORIENTED TO TIME. REORIENTED NEEDED. CONTACT ISOLATION FOR CDIFF. HAZARDOUS DRUGS. TOLERATING REGULAR IET. INFECTIOUS DISEAS IN TO SEE, STARTED ON 10 DAYS DIFICID. PT C/O PAIN 03/12 THIS AM, PRN PERCOCET X1, PT WAS VERY SLEEPY AFTERWARD. DR PICKETT WANTS TO HOLD OFF ON OPIODS IF POSSIBLE. PT HAS BEEN VERY PLEASANT THIS SHIFT. SOUNDED LIKE PT HOLLERING OUT, WENT IN TO SEE AND PT STATES SHE IS JUST SINGING. SPEECH IS GARBLED, SLURRED- OFTEN HARD TO UNDERSTAND. PT SEEMS TO HAVE EXPRESSIVE APHASIA AT TIMES. VERY SHAKY AND WEAK. 2PA TO BSC. ALARMS ON AT ALL TIMES. VSS ON RA, RT IS WORKING ON GETTING CPAP SET UP FOR TONIGHT. IV RUNNING TO L CHEST( NEAR ARMPIT AREA). HEPARIN GTT RUNNING. COUMADIN DOSED TODAY. Follow up: CONTINUE TO MONITOR, ALARMS FOR SAFETY, HEPARIN GTT
[2016-10-20 09:26] LABS: BASOPHIL # 0.1 K/uL (0.0-0.2); BASOPHIL % 0.7 %; EOSINOPHIL # 0.5 K/uL (0.0-0.5); EOSINOPHIL % 5.9 %; HEMATOCRIT 28.5 % (33.0-46.0); HEMOGLOBIN 8.9 g/dL (10.0-15.0); IMMATURE GRANULOCYTE # 0.1 K/uL (0.0-0.3); IMMATURE GRANULOCYTE % 0.8 %; LYMPHOCYTE # 0.8 K/uL (0.8-4.0); LYMPHOCYTE % 9.8 %; MCH 27.6 pg (27.0-34.0); MCHC 31.2 gm/dL (32.0-36.5); MCV 88.2 fl (83.0-98.0); MONOCYTE # 0.6 K/uL (0.0-1.0); MPV 8.9 fl (9.4-12.4); NEUTROPHIL # (ANC) 6.2 K/uL (1.8-7.8); NEUTROPHIL % 75.8 %; NRBC % 0 /100WBC (0-0.00); PLATELET COUNT 387 K/uL (150-450); RBC 3.23 M/uL (3.50-5.50); RDW-CV 14.6 % (11.9-14.6); WBC 8.2 K/uL (4.0-11.0)
[2016-10-20 09:33] LABS: INR - (THERAPEUTIC) 1.08 (0.92-1.07); PROTIME 11.4 SECONDS (9.8-11.4)
[2016-10-20 09:39] LABS: ANION GAP 12.4 (10.0-19.0); CALCIUM 8.3 mg/dL (8.5-10.5); CREATININE 1.3 mg/dL (0.5-1.1); POTASSIUM 4.4 mMol/L (3.7-5.1)
--- NOTE | 2016-10-20 17:40 | NUR ---
Significant Event:PT. YELLING MOST OF DAY. SEROQUEL DOSE STARTED AND SLEPT AFTERWARDS. INC. OF URINE AND STOOL. HAD 3 SEMI FORMED STOOLS TODAY. EATING W/O DIFFICULTY. HAD MRI OF BRAIN THIS AFTERNOON. BED ALARM ON AT ALL TIMES. IV LEFT CHEST/ARM PIT. HEPARIN CONTINUOUS INFUSION AT 20ML/HR. NEXT PTTHP AT 2100. CPAP IN ROOM FOR HS IF PT WILL TOLERATE. Follow up:
[2016-10-20 23:32] LABS: BASOPHIL % 0.5 %; EOSINOPHIL # 0.7 K/uL (0.0-0.5); EOSINOPHIL % 8.4 %; HEMATOCRIT 29.7 % (33.0-46.0); IMMATURE GRANULOCYTE # 0.1 K/uL (0.0-0.3); IMMATURE GRANULOCYTE % 0.9 %; LYMPHOCYTE # 0.9 K/uL (0.8-4.0); LYMPHOCYTE % 11.9 %; MCH 26.9 pg (27.0-34.0); MCHC 30.3 gm/dL (32.0-36.5); MCV 88.9 fl (83.0-98.0); MONOCYTE # 0.6 K/uL (0.0-1.0); MPV 8.8 fl (9.4-12.4); NEUTROPHIL # (ANC) 5.6 K/uL (1.8-7.8); NEUTROPHIL % 70.3 %; NRBC % 0 /100WBC (0-0.00); PLATELET COUNT 372 K/uL (150-450); RBC 3.34 M/uL (3.50-5.50); RDW-CV 14.6 % (11.9-14.6); WBC 7.9 K/uL (4.0-11.0)
[2016-10-21 06:25] LABS: BASOPHIL # 0.1 K/uL (0.0-0.2); BASOPHIL % 0.5 %; EOSINOPHIL # 0.6 K/uL (0.0-0.5); EOSINOPHIL % 5.6 %; HEMATOCRIT 29.7 % (33.0-46.0); HEMOGLOBIN 9.3 g/dL (10.0-15.0); IMMATURE GRANULOCYTE # 0.1 K/uL (0.0-0.3); LYMPHOCYTE # 0.9 K/uL (0.8-4.0); LYMPHOCYTE % 8.9 %; MCH 27.7 pg (27.0-34.0); MCHC 31.3 gm/dL (32.0-36.5); MCV 88.4 fl (83.0-98.0); MONOCYTE # 0.7 K/uL (0.0-1.0); MONOCYTE % 6.9 %; MPV 8.7 fl (9.4-12.4); NEUTROPHIL # (ANC) 7.5 K/uL (1.8-7.8); NEUTROPHIL % 77.1 %; NRBC % 0 /100WBC (0-0.00); PLATELET COUNT 372 K/uL (150-450); RBC 3.36 M/uL (3.50-5.50); RDW-CV 14.7 % (11.9-14.6); WBC 9.8 K/uL (4.0-11.0)
[2016-10-21 06:29] LABS: INR - (THERAPEUTIC) 1.18 (0.92-1.07); PROTIME 12.4 SECONDS (9.8-11.4)
[2016-10-21 06:37] LABS: ANION GAP 11.7 (10.0-19.0); CALCIUM 9.1 mg/dL (8.5-10.5); POTASSIUM 4.7 mMol/L (3.7-5.1)
--- NOTE | 2016-10-21 07:34 | NUR ---
SIGNIFICANT EVENT: Patient confused, in and out of orientation. Yells out d/t what seems to be a combination of confusion and pain. Apparent expressive aphasia, pt gets frustrated easily with this. States pain to be in L) arm and both legs. MD notified, one time order for 10 mg oxycodone - given at approx 0340. Seroquel given at approx 0230. ISO for CDIF. Hazardous drug precautions. Heparin drip, LR at 100 and intermittent Thiamine infusing into L) chest PIV. VSS on 1.5L. 1 to 2 PA to bedside commode. Inc urine and stool at times. Cooperative with most cares.
--- NOTE | 2016-10-21 11:10 | NUR ---
A - CONSULT RECEIVED D/T DELERIUM ORDER SET. CONFUSED. C-DIFF. LABS: GLU 104. MEDS: SEROQUEL, LR, LACTINEX, D5NS, LEXAPRO, PROGRAF, PROTONIX, CELLCEPT, DIFICID, THIAMINE. DIET: REG. INTAKE: 0-75% ENSURE TID. NEEDS: [id number] KCAL, 56-62 G PRO D - INADEQUATE NUTRIENT INTAKE R/T DECREASED APPETITE, MENTAL STATUS AEB INTAKE RECORD, DELERIUM. I - GOAL FOR INCREASED ORAL INTAKE BY NEXT ASSESSMENT. WILL CONTINUE ENSURE TID. M/E - WILL MONITOR INTAKE F/U IN 4-5 DAYS.
--- NOTE | 2016-10-21 20:25 | NUR ---
Significant Event: Pt gets agitated and hollers out even when staff is right next to her. At times she is alert and oriented and other times her speech is hard to understand and garbled. Pt complains of pain constantly. Pt has tylenol scheduled. She was incontinent of urine x 1 and voided per BSC the other 5 times. She had 1 BM today. She ate well with setup assistance. Heparin IV continues. See flow sheet for rate and lab times. IV infuses without difficulty to left chest without problems. Up to bedside commode with 1 assist. Psych consult ordered. PRN seroquel given x 1. Follow up:
--- NOTE | 2016-10-22 04:15 | NUR ---
Significant Event: PATIENT CONTINUES TO BE CONFUSED, APHASIC, AND YELLS OUT CONTINUALLY. ORDERS ARE WRITTEN FOR "NO NARCOTICS." DR. ROSALES NOTIFIED OF BEHAVIORS AT 0330. ORDER OBTAINED FOR OXYCODONE X1 DESPITE THE NO NARCOTIC ORDER. SHORTLY AFTER ADMINISTRATION, PATIENT BEGINS TO RELAX AND IS ABLE TO GO TO SLEEP. HEPARIN DRIP CONTINUES. NEXT PTT IS AT 0700.INCONTINENT OF STOOL/URINE. USES BSC. Follow up:
[2016-10-22 08:09] LABS: ANION GAP 14.2 (10.0-19.0); CALCIUM 9.2 mg/dL (8.5-10.5); POTASSIUM 5.2 mMol/L (3.7-5.1)
[2016-10-22 10:09] LABS: BASOPHIL # 0.1 K/uL (0.0-0.2); BASOPHIL % 0.9 %; EOSINOPHIL # 0.6 K/uL (0.0-0.5); EOSINOPHIL % 4.5 %; HEMATOCRIT 32.8 % (33.0-46.0); HEMOGLOBIN 10.3 g/dL (10.0-15.0); IMMATURE GRANULOCYTE # 0.1 K/uL (0.0-0.3); IMMATURE GRANULOCYTE % 0.7 %; LYMPHOCYTE # 1.1 K/uL (0.8-4.0); LYMPHOCYTE % 7.5 %; MCH 27.5 pg (27.0-34.0); MCHC 31.4 gm/dL (32.0-36.5); MCV 87.5 fl (83.0-98.0); MONOCYTE # 0.8 K/uL (0.0-1.0); MONOCYTE % 5.5 %; MPV 8.6 fl (9.4-12.4); NEUTROPHIL # (ANC) 11.4 K/uL (1.8-7.8); NEUTROPHIL % 80.9 %; NRBC % 0 /100WBC (0-0.00); PLATELET COUNT 522 K/uL (150-450); RBC 3.75 M/uL (3.50-5.50); RDW-CV 14.9 % (11.9-14.6); WBC 14.1 K/uL (4.0-11.0)
[2016-10-22 10:17] LABS: INR - (THERAPEUTIC) 2.18 (0.92-1.07); PROTIME 23.1 SECONDS (9.8-11.4)
--- NOTE | 2016-10-22 17:09 | NUR ---
Disoriented to time. Oriented to self and place. Aphasic. 1L O2 - Pt. sometimes removes. CPAP machine for NOC. Contact isolation for C-Diff and hazardous meds. 1 Assist and uses toilet. IV to ABNER shoulder with LR at 100Ml/hour and heparin drip going at 18ml/hour. PTTHP therapeutic at 1030. Next draw at 2200. IV thiamine and heparin drip compatible. Does not use call light appropriately and yells out. Takes pills with applesauce. Wears breif and incontinent at times.
--- NOTE | 2016-10-23 04:38 | NUR ---
Significant Event: Pt oriented x 2. Incomprehesive at times, other times able to understand with little difficulty. Has continued to yell out at times. Gave Trazadone at HS with no results. Pt refused to wear c-pap. Up with 1-2 assist to BSC, occasional incont. Takes pillS with applesause and does well. Remains on heparin drip with next PTT-HP AT 0730. Follow up: PT's daughter wondering when MD is going to restart lasix.
[2016-10-23 07:53] LABS: INR - (THERAPEUTIC) 3.25 (0.92-1.07); PROTIME 34.5 SECONDS (9.8-11.4)
[2016-10-23 07:57] LABS: ANION GAP 13.8 (10.0-19.0); CALCIUM 9.3 mg/dL (8.5-10.5); POTASSIUM 4.8 mMol/L (3.7-5.1)
[2016-10-23 08:01] LABS: BASOPHIL # 0.1 K/uL (0.0-0.2); BASOPHIL % 0.8 %; EOSINOPHIL # 0.3 K/uL (0.0-0.5); EOSINOPHIL % 3.1 %; HEMATOCRIT 29.5 % (33.0-46.0); HEMOGLOBIN 9.1 g/dL (10.0-15.0); IMMATURE GRANULOCYTE # 0.1 K/uL (0.0-0.3); IMMATURE GRANULOCYTE % 1.2 %; LYMPHOCYTE # 0.7 K/uL (0.8-4.0); MCH 27.4 pg (27.0-34.0); MCHC 30.8 gm/dL (32.0-36.5); MCV 88.9 fl (83.0-98.0); MONOCYTE # 0.6 K/uL (0.0-1.0); MONOCYTE % 6.3 %; MPV 8.9 fl (9.4-12.4); NEUTROPHIL % 81.6 %; NRBC % 0 /100WBC (0-0.00); PLATELET COUNT 425 K/uL (150-450); RBC 3.32 M/uL (3.50-5.50); RDW-CV 14.9 % (11.9-14.6); WBC 9.8 K/uL (4.0-11.0)
--- NOTE | 2016-10-23 16:04 | NUR ---
Disoriented to time. Intermittently anxious and agitated slightly. Frequently asks for meds. Explain that she has no PRN meds for pain and anxiety[facility] Last dose of IV Thiamine given this a.m. Heparin drip stopped. VSS, afebrile, on 1liter O2. Up to BR and BSC. Two incontinent BMs, one loosely formed BM this afternoon. Ambulated in ponce today with PT. Tolerating regular diet. Limb alert to R)arm from old fistula. Somewhat aphasic.
--- NOTE | 2016-10-24 02:40 | NUR ---
Significant Event: Patient's daughter here for a short while last night. Patient had 2 loose stools and was incontinent of urine x 1. Trazadone and risperdal started last night. Patient states she should have never taken the trazadone as it has made her shaky. She has been able to sleep though and has had less outbreaks of hollering and demands to call the doctor for a shot. Message given x 1 for shakiness which seemed to help. Follow up: Plan is for her to go to [facility] at discharge.
[2016-10-24 06:26] LABS: INR - (THERAPEUTIC) 3.24 (0.92-1.07); PROTIME 34.4 SECONDS (9.8-11.4)
--- NOTE | 2016-10-24 15:00 | NUR ---
RRECEIVED CALL FORM MAGY MELENDEZ ([phone]) SHE INFORMS ME THAT THEY ARE NOT GONG TO APPLY FOR MEDICAID BECAUSE MAGY'S SPOSUE WOULD HVE TO GIVE UP HE RESOUECES AND "THAT IS NOT GOING TO HAPPEN" SHE INFORMS ME THAT THEY WANT MAGY TO GO TO SNF FOR 20 DAYS TO GET THRAPY AND THAN THEY WILL TAKE HER HOME BECAUSE THEY CAN NOT AFFORD TO PAY THE "$165.00) A DAY AND THAT IF SHE NEEDS MORE CAER THAT THEY WILL HAVE MAGY MOVE IN WITH HER. I UPDATED ROSIE AT [facility] SHE WILL REVIEW THIS WITH THE TEAM AND GET BACK TO ME TOMORROW.
--- NOTE | 2016-10-24 15:00 | NUR ---
SPOKE TO HERMES AT [facility] TO SEE IF THEY CAN ACCEPT PATIENT. THEY INFORM ME THAT UNTIL PATIENT HAS A SECONDAY PARYOR SOURCE THEY WILL NOT BE ABLE TO ACCEPT HER. I NOTIFIED MAGY'S SPOUSE HE TELLS ME THAT MAGY DOES NOT HAVE A SECONDARY PAYOR SOURCE AND THAT SHE HAD MEDICAID AT ONE TIME BUT THAN THEY " MAY TOO MUCH MONDY" AND SHE DID NOT QUALIFY. HE SUGGESTED THAT I CONTACT HIS DAUGHTER SHE IS THE ONE WHO TAKES CARE OF THE [facility]. I ATTEMPTED TO CONTACT HER BUT HER PHONE HAS BEEN DISCONNECTED. I SPOKE TO JODY WITH [facility] AND SHE IS GONG TO TRY TO GET PATIENT ON MEDICAID. SHE NOTED THAT PATIENT HAD BEEN ON MEDICAID AT ONE TIME.
--- NOTE | 2016-10-24 16:10 | NUR ---
Significant Event:Is alert but disoriented to time.O2 was dc'd today as well as IV fld.SL in upper Lt.chest.Has had 2 small to mod loose invol.stools & has been incont of urine as well as voiding in the BR.Has been up with 1-2 assists & walker.Is weak & unsteady.Hollers out at times.Speech is kind of slurred & is hard for her to get her words out.Eating & drinking fair. Follow up:
--- NOTE | 2016-10-24 16:30 | NUR ---
RECEIVED CALL FROM JIMY AT [facility] IN [place] SHE INFORMS ME THAT THEY WILL NOT BE ABLE TO ACCEPT PATIENT. I ATTEMPTED TO CONTACT PATIENT'S DAUGHTER BUT UNABLE TO GET AHOLD OF HER.
--- NOTE | 2016-10-25 05:01 | NUR ---
SSignificant Event: Pt A&Ox2. Will call out and try to climb out of bed. Bed alarm/chair alarm on at all times. Hx of CHF, daily wt. Last ECHO has EF of 55-60% on 10/18/2016. Pt is unsteady and requires gaitbelt and walker. Has had multiple incontinent stools and voids. If she is incontinent she will start to yell out. Currently in iso for C. diff. Speech is slurred and pt seems to have some aphasia. Recent prograf level 10.2. Pt takes pills whole in applesauce. Murmur present. Pt is on RA. She will put nc in nose, but turned off the oxygen. Does wear BiPAP @ HS. Hx of CRF, stage V; on HD. Fistula present w/bruit and thrill on Rt arm. Follow up: Continue plan of care. Plan for d/c to [facility]
[2016-10-25 05:20] LABS: BASOPHIL # 0.1 K/uL (0.0-0.2); EOSINOPHIL # 0.5 K/uL (0.0-0.5); EOSINOPHIL % 7.2 %; HEMATOCRIT 30.9 % (33.0-46.0); HEMOGLOBIN 9.6 g/dL (10.0-15.0); IMMATURE GRANULOCYTE # 0.1 K/uL (0.0-0.3); LYMPHOCYTE # 0.8 K/uL (0.8-4.0); LYMPHOCYTE % 11.8 %; MCH 27.7 pg (27.0-34.0); MCHC 31.1 gm/dL (32.0-36.5); MCV 89.3 fl (83.0-98.0); MONOCYTE # 0.6 K/uL (0.0-1.0); MONOCYTE % 7.9 %; MPV 8.7 fl (9.4-12.4); NEUTROPHIL # (ANC) 4.9 K/uL (1.8-7.8); NEUTROPHIL % 71.1 %; NRBC % 0 /100WBC (0-0.00); PLATELET COUNT 476 K/uL (150-450); RBC 3.46 M/uL (3.50-5.50); RDW-CV 15.1 % (11.9-14.6); WBC 6.9 K/uL (4.0-11.0)
[2016-10-25 05:27] LABS: INR - (THERAPEUTIC) 3.4 (0.92-1.07); PROTIME 36.1 SECONDS (9.8-11.4)
[2016-10-25 05:33] LABS: ANION GAP 12.6 (10.0-19.0); CALCIUM 9.1 mg/dL (8.5-10.5); POTASSIUM 4.6 mMol/L (3.7-5.1)
--- NOTE | 2016-10-25 12:08 | NUR ---
A-NUTRITION F/U C-DIFF (+). CBW 130 LBS (STANDING SCALE); ADMIT WT (BED SCALE): 123 LBS LABS: NA 140, K+ 4.6, GLU 101, BUN 12, RN CASE MANAGER HOSPICE 1.0 MEDS: VIT B-1, RISPERDAL, DESYREL DIET RX: REGULAR W/ENSURE ENLIVE TID. PO INTAKE BITES-50% EST NUTR NEEDS: 4515-0940 KCALS AND 56-62 GM PROTEIN D-AT NUTRITION RISK W/INADEQUATE NUTRIENT INTAKE R/T MENTAL STATUS AEB INTAKE RECORD, CHART REVIEW I-1)CONTINUE W/ENSURE ENLIVE TID 2)ADD MAGIC CUP BID AT L/D M/E-GOAL: PO INTAKE >/=50% BY NEXT F/U 1)F/U PO INTAKE, SUPPLEMENT, AND POC IN 3-5 DAYS 2)ASSIST NEEDED
--- NOTE | 2016-10-25 13:12 | NUR ---
[id number] I ATTEMPTED TO CONTACT PATIENT'S DAUGHTER BARB TO UPDATE HER THAT [facility] WILL NOT BE ABLE TO ACCEPT MAGY, UNABLE TO GET [facility] OF [place] AND COULD NOT LEAVE A MESSAGE ON HER VOICE MAIL. I SPOKE TO PATIENT'S SPOUSE CESAR AND UPDATED HIM THAT [facility] WILL NOT ACCEPT MAGY AND I PRESENTED THE OPTION OF SNF AT [facility] AND [facility]. HE AGREES TO HAVING ME CHECK INTO THESE PLACED. I SPOKE TO DAYLIN AT THE [facility] SHE WOULD LIKE FOR ME TO FAX INFO TO HER SHE WILL REVIEW IT WITH THE TEAM AND GET BACK TO ME. I ALSO MADE REFERRAL TO OLAF AT [facility] SHE WOULD LIKE FOR ME TO FAX INFO TO HER SHE WILL REVIEW IT AND GET BACK TO ME. I ATTEMPTED TO MAKE REFERRAL TO THE SNF IN [place] BUT THERE IS NOT ANYONE THERE TODAY WHO I CAN SPEAK TO REGARDING PLACEMENT WILL CONT TO FOLLOW NEEDED.
--- NOTE | 2016-10-25 16:04 | NUR ---
DR. GUNDERSON EVALUATED PATIENT AND HE DOES NOT FEEL THAT SHE IS APPROIATE FOR INPT REHAB. RECEIVED CALL FROM THE SW AT [facility] SHE REPORTS THAT THEY WILL BE HERE TOMORROW TO EVALUATE PATIENT.I SPOKE TO MAGY AND INFORMED HER OF THIS. HER SPEECH IS GARBLED. AND SHE IS DISORIENATED I AM NOT CERTAIN THAT SHE UNSTANDS THAT WE ARE LOOKING INTO SNF PLACEMENT
--- NOTE | 2016-10-25 16:09 | NUR ---
Significant event: Patient is alert and oriented x2, self and place. VSS. on Room air. Has had 4 loose incontinent stools, also incontinent of urine. Takes pills whole in applesauce. Does have aphasia and has a hard time finding the right words to say, most of time is garble. Is able to answer yes and no questions appropriately. Also today has been more calm and less hollering out, mostly calling out when needs toliet or changed. Bottom is sore and needs moisture barrier to it. Has been cooperative with cares today and non aggressive with staff. Plans to go to intermediate as soon as able to find placement and d-diff clear. Consult for fecal transplant.
--- NOTE | 2016-10-25 16:11 | NUR ---
SPOKE TO MAGY'S DAUGHTER NORA UPDATED HER THAT SOMEONE FROM [facility] WILL BE HERE TOMORROW TO SEE PATIENT AND NORA IS HAPPY ABOUT THIS. SHE IS GOING TO UPDATE HER DAD.
--- NOTE | 2016-10-26 04:57 | NUR ---
Significant Event: Pt A&Ox2. Vital signs stable, remains on RA. Is to wear BiPAP while sleeping. Pt incontinent of urine and stool. Had 2 loose stools overnight. Bottom is very reddened and rashy. Maybe need aquaphor questran compound? Aloe Arona doesn't seem to be cutting it. Still a lot of pain associated with that bottom area. Speech was slightly clearer at times; when becoming frustrated, speech tends to get worse. Pt's wedding anniversary is today and wants to go home. Placement is needed. Follow up: Consult for fecal transplant. Follow up with diaper rash. Continue plan of care.
[2016-10-26 05:35] LABS: BASOPHIL # 0.1 K/uL (0.0-0.2); EOSINOPHIL # 0.5 K/uL (0.0-0.5); EOSINOPHIL % 7.5 %; HEMATOCRIT 32.4 % (33.0-46.0); HEMOGLOBIN 10.1 g/dL (10.0-15.0); IMMATURE GRANULOCYTE # 0.1 K/uL (0.0-0.3); IMMATURE GRANULOCYTE % 0.7 %; LYMPHOCYTE # 0.8 K/uL (0.8-4.0); LYMPHOCYTE % 10.9 %; MCH 27.4 pg (27.0-34.0); MCHC 31.2 gm/dL (32.0-36.5); MONOCYTE # 0.5 K/uL (0.0-1.0); MONOCYTE % 7.5 %; MPV 8.6 fl (9.4-12.4); NEUTROPHIL # (ANC) 5.1 K/uL (1.8-7.8); NEUTROPHIL % 72.4 %; NRBC % 0 /100WBC (0-0.00); PLATELET COUNT 473 K/uL (150-450); RBC 3.68 M/uL (3.50-5.50); RDW-CV 15.4 % (11.9-14.6)
[2016-10-26 05:44] LABS: PROTIME 27.8 SECONDS (9.8-11.4)
[2016-10-26 05:46] LABS: INR - (THERAPEUTIC) 2.62 (0.92-1.07)
--- NOTE | 2016-10-26 10:30 | NUR ---
RECEIVED CALL FROM OLAF AT [facility],SHE REPORTS THAT THE [facility] CAME AND EVAULATED PATIENT YESTERDAY AND MAGY WAS " VERY VERBAL TO HER" THEY ARE NOT SAYING NO AND ARE NOT SAYING YES AT THIS TIME. BUT WATN TO SEE IF THEY DO THE FECAL TRANSPLANT AND ARE HOPING THAT HER MEDICATIONS ARE ADJUSTED AND THAN THEY WILL CONSIDER EVALUATING HER AGAIN AT ANOTHER TIME.
--- NOTE | 2016-10-26 12:50 | NUR ---
PT HX INCLUDES FECAL TRANSPLANT IN 2014, REOCCURING CDIFF, SHIRLEY, PVD, RENAL TRANSPLANT, AORTIC VALVE REPLACEMENT, DIASTOLIC CHF, PE. CURRENTLY ON COUMADIN. PT ORIGINALLY PRESENTED FROM CLINIC WITH DELIRIUM. IS ALERT, ORIENTED TO PERSON AND PLACE. HAS BEEN HAVING ISSUES WITH MUMBLING AND EXPRESSIVE APHASIA. HAS BEEN IMPULSIVE AND SETS OFF BED/CHAIR ALARMS. BECOMES EASILY FRUSTRATED WHEN STAFF IS NOT ABLE TO UNDERSTAND WHAT SHE WANTS. CDIFF IS POSITIVE. HAZARDOUS DRUG PRECAUTIONS. PT/OT WORKING WITH. AMBULATED IN ROOM WITH 2PA, GAITBELT AND WALKER THIS AM. HAD AN Frazr BM THIS AM, SHOWER COMPLETED. BUTTOCK/GROIN AREA IS EXCORIATED. PUT ALOE VESTA ON, PT STATES IT GUPTA. HAS MULITPLE AREAS OF ECCHYMOSIS THROUGHOUT. PIV TO L CHEST, SALINE LOCKED. RFID SPECIALIST, JANIE, HAS MADE REFERRALS TO SNF IN THE AREA. [facility] IS CONSIDERING, BUT IS WAITING TO GIVE FINAL ANSWER BASED ON COURSE OF TREATMENT HERE. THE NUMBER FOR [facility] IS [phone]. PT DOES WEAR CPAP AT AND HAS OWN MACHINE.
--- NOTE | 2016-10-26 12:54 | NUR ---
RECEIVED REFERRAL THAT PATIENT IS GOING TO BE TRANSFERED TO [facility]. DR. PICKETT IS GOING TO MAKE REFERRAL. I NOTIFIED PATIENT'S DAUGHTER NORA AND UPDATED HER SHE TELLS ME I WILL BE RIGHT UP THERE AND HUNG UP ON ME. NOTIFIED [facility] AND SPOKE TO SASKIA. AWAITING CALL BACK FROM [facility] WITH BED.
--- NOTE | 2016-10-26 13:10 | NUR ---
SPOKE TO SISSY SHE REPORTS THAT DR. PICKETT HAS SPOKE TO [facility] AND DR. AGEE WILL BE THE ACCEPTING PHYSICIAN. PATIENT'S DAUGHTER NORA IS AT THE BEDSIDE AND SHE DR. PICKETT SPOKE TO HER ABOUT THE TRANSFERE SHE IS IN AGREEMENT TO THE TRANSFERE AND SO IS MAGY. SPOKE TO SASKIA WITH [facility] AND UPDATED HER SHE WILL ARRANGE FOR [facility] TO TRANSPORT.
--- NOTE | 2016-10-26 13:19 | NUR ---
DR. PICKETT SPOKE TO DR. AGEE AT [facility] WHO HAS ACCEPTED THE PATIENT. PATIENT'S DAUGHTER NORA IS AT THE BEDSIDE, DR. PICKETT HAS SPOKEN TO PATIENT AND HER DAUGHTER AT THE BEDSIDE REGARDING THE TRANSFERE. AND THEY ARE IN AGREEMENT TO THE TRANSFERE. NORA HAS NOTIFIED MAGY'S SPOUSE AND INFORMED HIM WELL. AWAITING CALL FROM [facility] THAT THEY HAVE A BED.
[2016-10-26 13:44] LABS: ALBUMIN 3.3 gm/dL (3.5-5.0); CALCIUM 8.7 mg/dL (8.5-10.5); CREATININE 1.2 mg/dL (0.5-1.1); MAGNESIUM 2.1 mg/dL (1.8-2.6); PHOSPHORUS 3.5 mg/dL (2.5-4.9)
--- NOTE | 2016-10-26 14:00 | NUR ---
RECEIVED CALL FROM [facility] CHARGE NURSE SHE REPORTS THAT SHE HAS RECEIVED CALL FROM [facility] AND THEY HAVE A BED FOR MAGY,SHE WILL GO TO [facility] SIDE TO ROOM [address] THE NUMBER FOR NURSE TO NURSE IS [phone].SPOKE TO SASKIA AND SHE IS ARRANGING FOR [facility] TO TRANSPORT SOON.
== END 2016-10-26 15:10 | disposition hospice, home (50) | DRG 641 ==
LOC: GMED 14:54 → GMSU 17:39
PROVIDERS: Emergency Medicine; Internal Medicine; Nurse Practitioner Family; Physician Assistant; ADMIT Hospitalist
DX: E51.2 Wernicke's encephalopathy (principal); D84.9 Immunodeficiency, unspecified; J96.10 Chronic respiratory failure, unspecified whether with hypoxia or hypercapnia; F11.23 Opioid dependence with withdrawal; A04.7 Enterocolitis due to Clostridium difficile; I50.32 Chronic diastolic (congestive) heart failure; Z94.0 Kidney transplant status; F10.10 Alcohol abuse, uncomplicated; G47.33 Obstructive sleep apnea (adult) (pediatric); M79.7 Fibromyalgia; R79.1 Abnormal coagulation profile; E05.80 Other thyrotoxicosis without thyrotoxic crisis or storm; T38.1X5A Adverse effect of thyroid hormones and substitutes, initial encounter; G89.29 Other chronic pain; F41.9 Anxiety disorder, unspecified; R47.1 Dysarthria and anarthria; I73.9 Peripheral vascular disease, unspecified; Z87.891 Personal history of nicotine dependence; Z95.2 Presence of prosthetic heart valve; Z79.01 Long term (current) use of anticoagulants; Z86.711 Personal history of pulmonary embolism; Z86.718 Personal history of other venous thrombosis and embolism; Z92.25 Personal history of immunosuppression therapy; Z79.82 Long term (current) use of aspirin; Z88.5 Allergy status to narcotic agent; Z88.6 Allergy status to analgesic agent; Z91.041 Radiographic dye allergy status
CPT/HCPCS: G0237; J0696; J1170; J1644; J2543; J3411; J7042; J7120; J7507; J7517

== ENCOUNTER → 2016-10-17 | Outpatient (CLI) | payer MEDICARE ==
[~2016-10-17] MED LIST changes: +BUMEX1 MG PO; +COREG25 MG PO; +DESYREL100 MG PO; +FOLIC ACID1 MG PO; +HYDROCODON-ACE1 EAC2 PO; +KLONOPIN0.5 MG PO; +PROBIOTIC1 EAC1 PO; +PROVENTIL OR V6.7 GM INH; +RISPERDAL0.5 MG PO; +TYLENOL EXTRA500 MG PO; +VANCOCIN HCL125 MG PO
== END | disposition disaster alternative care site (69) ==
LOC: GAMB 14:40
DX: R41.82 Altered mental status, unspecified (principal); R41.0 Disorientation, unspecified; Z79.82 Long term (current) use of aspirin; Z79.52 Long term (current) use of systemic steroids; Z79.891 Long term (current) use of opiate analgesic; Z79.899 Other long term (current) drug therapy
CPT/HCPCS: A0425; A0429

== ENCOUNTER → 2016-10-26 | Outpatient (CLI) | payer MEDICARE ==
[~2016-10-26] MED LIST changes: +BUMEX1 MG PO; +COREG25 MG PO; +DESYREL100 MG PO; +FOLIC ACID1 MG PO; +HYDROCODON-ACE1 EAC2 PO; +KLONOPIN0.5 MG PO; +PROBIOTIC1 EAC1 PO; +PROVENTIL OR V6.7 GM INH; +RISPERDAL0.5 MG PO; +TYLENOL EXTRA500 MG PO
== END | disposition disaster alternative care site (69) ==
LOC: GAMB 15:05
DX: B99.9 Unspecified infectious disease (principal); I50.9 Heart failure, unspecified; E78.00 Pure hypercholesterolemia, unspecified; I10 Essential (primary) hypertension; Z99.2 Dependence on renal dialysis; Z87.440 Personal history of urinary (tract) infections; F32.9 Major depressive disorder, single episode, unspecified; Z79.899 Other long term (current) drug therapy; Z79.2 Long term (current) use of antibiotics; Z88.8 Allergy status to other drugs, medicaments and biological substances
CPT/HCPCS: A0422; A0425; A0428

== ENCOUNTER 2016-11-04 18:46 | Emergency (ER) | payer MEDICARE ==
--- NOTE | ~2016-11-04 | ER ---
PATIENT'S NAME: MAGY PERES [facility] AGE: 65 Y [address] ROOM: [place] [address] LOCATION: [facility] ADMIT DATE: 11/04/2016 ER/Outpatient Report DISCHARGE DATE: 11/04/2016 FAMILY PHYSICIAN: Physician, Unknown ATTENDING PHYSICIAN: Shawnee Rodriguez HISTORY OF PRESENT ILLNESS: This is a 65-year-old female, who presents with left lower quadrant abdominal swelling where she gets her insulin injections. She said she started noticing it yesterday, but today, it has really got a lot bigger. It is about the size of a Ner[employer] football right now. She says it is not painful though, but says she is afraid that it is going to be painful. Denies any nausea or vomiting. She still is having diarrhea and she does have active C diff as well. No other complaints at this time. Denies any trauma. She has been getting Lovenox injections for sort of chronic anticoagulation for her PEs and also for her prosthetic mitral and aortic valves. PAST MEDICAL HISTORY: History of C diff, long-term alcohol abuse, opioid dependence, fibromyalgia, obstructive sleep apnea, renal transplant patient recipient with stable creatinine levels, history of PE and DVT on long-term anticoagulation with Coumadin, and this prosthetic mitral and aortic valve. SOCIAL HISTORY: Alcohol abuse. Denies smoking or using any drugs. MEDS: Please see med list. ALLERGIES: PLEASE SEE MED LIST. REVIEW OF SYSTEMS: Reviewed by me and negative with the exception of those discussed in the HPI. PHYSICAL EXAMINATION: GENERAL: The patient is 5 feet 1 inch, she weighs 50.2 kilos, her blood pressure is 182/69, heart rate 101, respiratory rate 18, temperature is 98.9, and saturations are 91% on room air. GENERAL: The patient is in no acute distress, sitting upright in stretcher, kind of slow to respond sometimes, but she does have a history of some encephalopathy secondary to the alcohol abuse. She is able to answer questions appropriately. She is not actively vomiting or retching. She does not look pale or diaphoretic. NEURO: She is A and O x4. GCS is 15. Heart rate is regular rate and rhythm PATIENT'S NAME: MAGY PERES [facility] AGE: 65 Y [address] ROOM: [place], [place] [address] LOCATION: [facility] ADMIT DATE: 11/04/2016 ER/Outpatient Report DISCHARGE DATE: 11/04/2016 FAMILY PHYSICIAN: Physician, Unknown ATTENDING PHYSICIAN: Shawnee Rodriguez at this time, about 95 beats per minute. LUNGS: Lung sounds are clear. ABDOMEN: She states she has a large hematoma on the left lower abdomen. It is not pulsating. It is not tender to palpation. It is not warm to touch. It is not cellulitic. These are where the Lovenox injection sites have been. EMERGENCY ROOM COURSE: We checked some lab work including CBC, CMP, and coags. We also did a CT abdomen and pelvis for evaluation of this. CT of the abdomen and pelvis shows a large left rectus sheath hematoma that is 5.2 x 9.3 x 12.3 cm. It has sort of air tracking around it, which is likely from her Lovenox shots. We checked some lab work. Her WBC is 7.8, her H and H is 8.2/26.5. Her previous hemoglobin had been 10.1, and this was about 2 weeks ago. Her platelets are 517. She has no bandemia. PTT is 33, PT is 11, INR is 1.05. Sodium is 137, potassium is 4.7, chloride is 104, CO2 is 24, anion gap is 13.7, BUN is 27, creatinine is 1.2, alkaline phosphatase is 100, AST 12, ALT 15, GFR 45. She does have a large rectus sheath hematoma. She says that it got this big, sort of over the course of [address] Barrios who is covering for Dr. Lopez, the patient's primary care doctor, and the plan right now is to stop her anticoagulation. So, stop the Lovenox injections for sure and stop the Coumadin until she is able to see them in 2 days for recheck of it. The patient does not have any pain on it. The hematoma is not wildly expanding here in the ER. So, I think she can have appropriate followup within the next 2 days. They understand the reasons to come back to the ER sooner. IMPRESSION: Rectus sheath hematoma. MD MIGUELITO DÍAZ/modl /[id number] d: 11/05/16722 t: 11/06/16 1820, OUTPATIENT REPORT
[~2016-11-04 18:46] MED LIST changes: -BUMEX1 MG PO; -DESYREL100 MG PO; -FOLIC ACID1 MG PO; -PROBIOTIC1 EAC1 PO; -RISPERDAL0.5 MG PO; -TYLENOL EXTRA500 MG PO
[2016-11-04 19:22] LABS: BASOPHIL % 0.5 %; EOSINOPHIL # 0.2 K/uL (0.0-0.5); EOSINOPHIL % 2.1 %; HEMATOCRIT 26.5 % (33.0-46.0); HEMOGLOBIN 8.2 g/dL (10.0-15.0); IMMATURE GRANULOCYTE # 0.1 K/uL (0.0-0.3); IMMATURE GRANULOCYTE % 0.8 %; LYMPHOCYTE # 1.1 K/uL (0.8-4.0); LYMPHOCYTE % 14.2 %; MCH 27.5 pg (27.0-34.0); MCHC 30.9 gm/dL (32.0-36.5); MCV 88.9 fl (83.0-98.0); MONOCYTE # 0.7 K/uL (0.0-1.0); MONOCYTE % 8.9 %; MPV 8.3 fl (9.4-12.4); NEUTROPHIL # (ANC) 5.7 K/uL (1.8-7.8); NEUTROPHIL % 73.5 %; NRBC % 0 /100WBC (0-0.00); PLATELET COUNT 517 K/uL (150-450); RBC 2.98 M/uL (3.50-5.50); RDW-CV 15.9 % (11.9-14.6); WBC 7.8 K/uL (4.0-11.0)
[2016-11-04 19:32] LABS: PTT 33 SECONDS (25-32)
[2016-11-04 19:33] LABS: INR - (THERAPEUTIC) 1.05 (0.92-1.07)
[2016-11-04 19:40] LABS: ANION GAP 13.7 (10.0-19.0); CALCIUM 8.2 mg/dL (8.5-10.5); CREATININE 1.2 mg/dL (0.5-1.1); POTASSIUM 4.7 mMol/L (3.7-5.1); TOTAL PROTEIN 6.1 g/dL (6.0-8.4)
[2016-11-04 19:41] LABS: TOTAL BILIRUBIN 0.2 mg/dL (0.0-1.5)
== END 2016-11-04 20:55 | disposition disaster alternative care site (69) ==
LOC: GMED 18:46
PROVIDERS: Emergency Medicine
DX: M79.81 Nontraumatic hematoma of soft tissue (principal); I26.99 Other pulmonary embolism without acute cor pulmonale; I82.409 Acute embolism and thrombosis of unspecified deep veins of unspecified lower extremity; Z79.01 Long term (current) use of anticoagulants; Z79.82 Long term (current) use of aspirin; Z79.899 Other long term (current) drug therapy; Z95.2 Presence of prosthetic heart valve; Z94.0 Kidney transplant status

== ENCOUNTER → 2016-11-10 | Outpatient (CLI) | payer MEDICARE ==
[~2016-11-10] MED LIST changes: +BUMEX1 MG PO; +DESYREL100 MG PO; +FOLIC ACID1 MG PO; +PROBIOTIC1 EAC1 PO; +RISPERDAL0.5 MG PO; +TYLENOL EXTRA500 MG PO
== END | disposition disaster alternative care site (69) ==
LOC: GLAB 11-09 16:30 → GOPP 09:13
DX: D64.9 Anemia, unspecified (principal)
CPT/HCPCS: J7040; P9058

== ENCOUNTER 2016-11-18 12:08 | Inpatient (IN) | payer MEDICARE ==
[~2016-11-18] VITALS: Ht 157.5 cm; Wt 81.2 kg
--- NOTE | ~2016-11-18 | HP ---
PATIENT'S NAME: MAGY PERES [facility] AGE: 66 Y [address] ROOM: [place] [address] LOCATION: [facility] ADMIT DATE: 11/18/2016 History & Physical DISCHARGE DATE: FAMILY PHYSICIAN: Anil Lopez MD ATTENDING PHYSICIAN: RAFAEL PICKETT DATE OF SERVICE: CHIEF COMPLAINT: Shortness of breath. HISTORY OF PRESENT ILLNESS: A 66-year-old lady with a past medical history of renal transplant recipient, history of recurrent DVTs, prosthetic aortic valve, as well as chronic hypoxic respiratory failure and heart failure with preserved ejection fraction presented to emergency department today with increased shortness of breath, which has been going on for couple of days now, not associated with cough, sputum production, any chest pain, lightheaded, or dizziness. She denied having any fever or chills. Of note, she was here in the emergency department a couple of weeks ago with abdominal swelling, which was diagnosed as a rectus sheath hematoma. Her anticoagulation was interpreted temporarily and was supposed to see Dr. John Lopez to restart the Coumadin, but today she told me that she has not been taking any Coumadin or Lovenox; although, she had prosthetic aortic valve as well as history of DVT. On further inquiry, she denied having any swelling in the legs, but did endorse having diarrhea, no burning on urination. Denied any muscle tenderness or joint swelling at this point. REVIEW OF SYSTEMS: All other systems reviewed and were negative except what is mentioned in the HPI. PAST MEDICAL HISTORY: History of recurrent C. diff colitis, mechanical mitral valve as well as aortic valve, history of PE, diastolic congestive heart failure, obstructive sleep apnea, on BiPAP, peripheral vascular disease, fibromyalgia, gastritis, chronic pain and opiate dependence, and chronic encephalopathy. PAST SURGICAL HISTORY: Multiple fractures, fecal transplant, kidney transplant, right AV fistula, mitral valve replacement, and aortic valve replacement. SOCIAL HISTORY: Lives with daughter. Denies history of smoking. PATIENT'S NAME: MAGY PERES [facility] AGE: 66 Y [address] ROOM: [place] [address] LOCATION: [facility] ADMIT DATE: 11/18/2016 History & Physical DISCHARGE DATE: FAMILY PHYSICIAN: Anil Lopez MD ATTENDING PHYSICIAN: RAFAEL PICKETT FAMILY HISTORY: Because of her encephalopathy, she is not able to provide much of family history at this point. PHYSICAL EXAMINATION: VITAL SIGNS: Blood pressure in the emergency department showed 157/83, temp of 97, respiratory rate of 36, pulse of 70. Weight of 67. GENERAL: No acute distress. Alert and oriented x1 only. HEENT: Head: Atraumatic, normocephalic. Eyes: Nonicteric. No pallor. Oropharynx: Moist mucous membranes. CARDIOVASCULAR: Mechanical click S1,S2 noted. No murmurs, gallops, or rubs. LUNGS: Bilateral lower bases crackles. Equal air entry. ABDOMEN: Soft. There is 5 x 5 cm swelling noted left of the umbilicus, which is nontender, fluctuant, somewhat not attached to the underlying structures. Bowel sounds are present. EXTREMITIES: No clubbing, cyanosis, or edema. PSYCH: Hyperactive at this point and tangential thoughts. NEUROLOGIC: Cranial nerves 2 through 12 are intact. No motor or sensory deficit noted. LABORATORY DATA: Chest x-ray was done in the emergency department, which revealed mild interstitial edema and blunting of the right costophrenic angle. Lab work done in the emergency department today showed an ABG of pH 7.31, pCO2 51, pO2 44, lactic acid 1.4, troponin less than 0.04. White count of 11, platelets 496, hemoglobin 9.2, BUN 20, creatinine 1.3, sodium 141, potassium 4.5, chloride 108, bicarb 24, and calcium 8.7. Procalcitonin 0.05. ASSESSMENT AND PLAN: 1. Cgnat-yy-vnyiltn hypoxic respiratory failure with increasing oxygen demands. It appears that this is secondary to her heart failure and volume overload. We will diurese her with Lasix 40 mg, monitor in's and out's, and see improvement. 2. Heart failure with preserved ejection fraction, acute exacerbation, plan as aicnx-qq-vmdjnep hypoxic respiratory failure with increasing oxygen demands. 3. Prosthetic mechanical valve including aortic as well as mitral. It is prudent that we start therapeutic anticoagulation at this point. She does have hematoma in the rectus sheath, which might take a couple of weeks to resolve. We will start therapeutic anticoagulation after PT/INR is done and monitor serial hemoglobin to see any drop in the hemoglobin. 4. Acute kidney injury on chronic kidney disease, a solitary transplant kidney. I believe this is secondary to cardiorenal, we will diurese her and monitor the response of the kidneys. 5. Recurrent C. diff infection, the patient does complain that she have some PATIENT'S NAME: MAGY PERES [facility] AGE: 66 Y [address] ROOM: [place] [address] LOCATION: [facility] ADMIT DATE: 11/18/2016 History & Physical DISCHARGE DATE: FAMILY PHYSICIAN: Anil Lopez MD ATTENDING PHYSICIAN: RAFAEL PICKETT. We will check it for active C. diff infection. 6. History of pulmonary embolism as noted to prosthetic mechanical valve including aortic as well as mitral. We will start her on intravenous therapeutic anticoagulation at this point and monitor hemoglobin, fibromyalgia, and opiate dependence. 7. Deep vein thrombosis prophylaxis. We are going to start on therapeutic anticoagulation plus sequential compression devices. RAFAEL PICKETT MD DIANE/modl /[id number] D: 330 T: 840 HISTORY & PHYSICAL
--- NOTE | ~2016-11-18 | DS ---
PATIENT'S NAME: MAGY PERES [facility] AGE: 66 Y [address] ROOM: [id number] [place], [place] [address] LOCATION: [facility] ADMIT DATE: 11/18/2016 Discharge Summary DISCHARGE DATE: 11/25/2016 FAMILY PHYSICIAN: Anil Lopez MD ATTENDING PHYSICIAN: Rafita Alberts DISCHARGE DIAGNOSES: 1. Acute on chronic diastolic congestive heart failure. 2. Subtherapeutic INR. 3. Large rectus sheath hematoma. 4. Mechanical AVR/MVR, on long-term anticoagulation. 5. Long-term anticoagulation, Coumadin. 6. Chronic pain syndrome. 7. Chronic hypoxic respiratory failure. HOSPITAL COURSE: Please refer to admitting history and physical as dictated by Dr. Alberts. Briefly, the patient was admitted to [facility] with acute on chronic diastolic CHF. She was given Lasix. She had been noted to have some loose stools; however, she did have formed stools while hospitalized. The patient was noted to have a large rectal sheath hematoma, secondary to Lovenox injections. Her INR was found to be subtherapeutic upon admit at 0.98. She was started on a heparin drip. She was also started on her Coumadin. The patient was subsequently changed to Bumex. She diuresed well. Her pain was controlled with Percocet 5 mg tablets, one tablet every 12 hours for pain. Her Coumadin was resumed while on the heparin drip to allow her INR to become therapeutic. Due to her history of mechanical aortic valve and mitral valve, her goal INR is 2.5 to 3.5. For her sleep apnea, it was recommended that she wear her CPAP; however, she was noncompliant. Physical Therapy and Occupational Therapy were consulted for physical deconditioning. They saw the patient throughout her stay. Oxygen was continued. Gradually, the patient's INR tatiana. On 11/25/2016, INR was found to be 2.8. Her heparin drip was discontinued. It was recommended that she was stable to go home with Coumadin 3 mg p.o. daily with an INR on 11/26/2016 to be called to her primary care provider's office with subsequent INRs every two days. She should follow up with her primary care provider in 3 days with a CBC, BMP, and an INR at that time. She will resume her home health. On 11/25/2016, her vital signs were stable. It was felt as though she was safe to discharge to home with family. LABORATORY DATA: Sodium remained within normal limits; potassium 4.5-5.1; CO2 of 22; calcium 8.7; BUN 28 upon admit, dropped as low as 23, prior to discharge 35; creatinine 1.3 upon admit, dropped as low as 1.0 and 1.3 prior to discharge; mag 2.0. Hemoglobin 8.5-9.1, hematocrit 28.6-31.2, platelets 492. PATIENT'S NAME: MAGY PERES [facility] AGE: 66 Y [address] ROOM: [address] [address] LOCATION: [facility] ADMIT DATE: 11/18/2016 Discharge Summary DISCHARGE DATE: 11/25/2016 FAMILY PHYSICIAN: Anil Lopez MD ATTENDING PHYSICIAN: Rafita Alberts INR upon admit 0.98, 1.02, 1.33, 1.74, 2.09, 1.87, 2.11, 2.82. RADIOLOGY REPORT: CT of the abdomen done on 11/22/2016 showed large left rectal sheath hematoma, mildly decreased in size since 11/04/2016 without new abnormality. DISCHARGE MEDICATIONS: 1. Norvasc 10 mg p.o. daily. 2. Aspirin 81 mg p.o. daily. 3. Bumex 1 mg p.o. daily. 4. Coreg 25 mg p.o. twice a day. 5. Lexapro 20 mg p.o. daily. 6. Feosol 325 mg p.o. daily. 7. Folic acid 1 mg p.o. daily. 8. Prednisone 5 mg p.o. daily. 9. Risperidone 0.5 mg p.o. t.i.d. 10. Prograf 2 mg p.o. daily. 11. Prograf 1 mg p.o. q.h.s. 12. Trazodone 100 mg p.o. q.h.s. 13. Coumadin 3 mg p.o. daily. 14. Coumadin 3 mg p.o. daily. PCP to dose based on INR. Call PCP for dosing instructions. 15. Tylenol 500-1000 mg p.o. every 8 hours as needed for pain. 16. Percocet 1 tablet p.o. every 12 hours as needed for pain. 17. CPAP when asleep. 18. Oxygen as per home setting. 19. CellCept 750 mg p.o. twice a day. 20. Albuterol 2 puffs every 4 hours as needed for shortness of breath. 21. Probiotic four tablets p.o. 3 times a day with meals. DISCHARGE INSTRUCTIONS: Diet: As tolerated. Activity: As tolerated. Followup Appointment: Dr. Anil Lopez in 3 days with a CBC, BMP, and INR. Home Health to resume upon discharge. Next INR on 11/26/2016. Call results to PCP, then INR q.2 days. Results to primary care provider. PCP to manage Coumadin. Thank you for allowing us to participate in the care of this patient as she has been hospitalized at [facility]. PATIENT'S NAME: MAGY PERES [facility] AGE: 66 Y [address] ROOM: [place] [address] LOCATION: [facility] ADMIT DATE: 11/18/2016 Discharge Summary DISCHARGE DATE: 11/25/2016 FAMILY PHYSICIAN: Anil Lopez MD ATTENDING PHYSICIAN: Rafita Alberts RADHA JAIME APRN FOR MD JOVANNY FISHMAN/carito /[id number] CC: Anil Lopez MD d: 11/26/16 0258 t: 12/04/16 1611, DISCHARGE SUMMARY
--- NOTE | ~2016-11-18 | ER ---
PATIENT'S NAME: MAGY PERES [facility] AGE: 66 Y [address] ROOM: [place] [address] [place] [facility] [place]: 11/18/2016 ER/Outpatient Report DISCHARGE DATE: FAMILY PHYSICIAN: Anil Lopez MD ATTENDING PHYSICIAN: RAFAEL ALBERTS Time of Arrival: 1210 hours. Time of Evaluation: 1210 hours. CHIEF COMPLAINT: Difficulty breathing. HISTORY OF PRESENT ILLNESS: The patient states that for the past 3 days, she has had increased difficulty breathing. It seemed worse today, and she chose to come to the ER to be evaluated. She reports she is having left-sided abdominal pain. Denies having any chest pain. Denies having a cough. She has not been nauseated. She has not vomited. She has not felt febrile or chills. She has not had any change in her bowel or bladder pattern. Denies use of doing respiratory treatments at home. ALLERGIES: CODEINE, IODINE CONTRAST, MORPHINE, NSAIDS, TORADOL. CURRENT MEDICATIONS: On her chart and reviewed by me. PAST MEDICAL HISTORY: Chronic kidney disease, chronic C. diff, sleep apnea, fibromyalgia, PE, DVT, prosthetic mitral and aortic valve, hypertension, anemia, congestive heart failure, hypothyroidism, ETOH abuse, opioid abuse, encephalopathy. PAST SURGICAL HISTORY: Coronary artery bypass graft, kidney transplant, cholecystectomy, hysterectomy, thyroidectomy, mitral and aortic valve replacements. SOCIAL HISTORY: The patient denies use of drugs, alcohol, or tobacco. REVIEW OF SYSTEMS: All negative other than those mentioned in the HPI. PHYSICAL EXAMINATION: VITAL SIGNS: She weighs 67.3 kg, blood pressure is 157/83, pulse is 70, respirations 36, temp of 97.3, O2 saturation is 99% on 3 L nasal cannula. The PATIENT'S NAME: MAGY PERES [facility] AGE: 66 Y [address] ROOM: [place] [address] [place] [facility] [place] [place]: 11/18/2016 ER/Outpatient Report DISCHARGE DATE: FAMILY PHYSICIAN: Anil Lopez MD ATTENDING PHYSICIAN: RAFAEL ALBERTS patient states she is normally on 2 L of oxygen at home, but she bumped it up to 3 today because she was feeling so short of breath. GENERAL: She is awake, alert, oriented to person, place, and time. She is a poor historian. Repeatedly says, "I can't remember more, ask my daughter." LUNGS: Sounds are decreased in the bases. HEART: Regular rate and rhythm. She has good pulses to peripheral. Does have a right forearm AV fistula that they used to use for her dialysis, but she states that she has not been on dialysis for quite some time. The fissure of the left arm has been removed. ABDOMEN: Her abdomen is round, distended. Bowel sounds are present. She does have bruising of the left abdominal area. She was recently diagnosed with a rectus sheath hematoma, that was on 11/04/2016. Her blood thinners were stopped at that time. She did come in on 11/10/2016 and had 2 units of blood transfused. LABORATORY DATA AND X-RAYS: EKG was completed. It shows sinus rhythm. CBC shows a hemoglobin of 9.2 with hematocrit of 31.2. Her INR was 0.98. Chem panel: Sodium is 141, potassium is 4.5, chloride 108, her BUN is 28 with a creatinine of 1.3, GFR is 41. CPK was 25, CK-MB was 0.6, and troponin was normal. Procalcitonin was normal. Lactate was 1.4. Her venous pH was 7.31 with a pCO2 of 51, and a bicarb of 25.7. Chest x-ray was completed. Radiologist reports the patient has a new mild to moderate right pleural effusion with mild edema and fluid overload. EMERGENCY DEPARTMENT COURSE: The patient was given Percocet 5/[address] Anil Lopez was contacted regarding the patient. He feels that she needs to be hospitalized and asked that we call the hospitalist. Dr. Alberts was contacted. He did come down and evaluate the patient. IMPRESSION: Right pleural effusion. PLAN: The patient will be placed in inpatient hospitalization for care with the hospitalist. Her and her family are aware of plan of care of the patient. ANAID KRISHNAN APRN FOR MD YOGESH RANGEL/modl PATIENT'S NAME: MAGY PERES [facility] AGE: 66 Y [address] ROOM: [place] [address] [place] [facility] [place] [place]: 11/18/2016 ER/Outpatient Report DISCHARGE DATE: FAMILY PHYSICIAN: Anil Lopez MD ATTENDING PHYSICIAN: RAFAEL ALBERTS /[id number] d: 11/18/16 2352 t: 11/30/16 0034, OUTPATIENT REPORT
[~2016-11-18 12:08] MED LIST changes: -BUMEX1 MG PO; -DESYREL100 MG PO; -FOLIC ACID1 MG PO; -PROBIOTIC1 EAC1 PO; -RISPERDAL0.5 MG PO; -TYLENOL EXTRA500 MG PO
[2016-11-18 12:50] LABS: BASOPHIL # 0.1 K/uL (0.0-0.2); BASOPHIL % 0.5 %; EOSINOPHIL # 0.1 K/uL (0.0-0.5); EOSINOPHIL % 1.2 %; HEMATOCRIT 31.2 % (33.0-46.0); HEMOGLOBIN 9.2 g/dL (10.0-15.0); IMMATURE GRANULOCYTE # 0.4 K/uL (0.0-0.3); IMMATURE GRANULOCYTE % 3.3 %; LYMPHOCYTE # 0.5 K/uL (0.8-4.0); LYMPHOCYTE % 4.4 %; MCH 27.3 pg (27.0-34.0); MCHC 29.5 gm/dL (32.0-36.5); MCV 92.6 fl (83.0-98.0); MONOCYTE # 0.3 K/uL (0.0-1.0); MONOCYTE % 2.2 %; MPV 8.5 fl (9.4-12.4); NEUTROPHIL # (ANC) 10.3 K/uL (1.8-7.8); NEUTROPHIL % 88.4 %; NRBC % 0 /100WBC (0-0.00); PLATELET COUNT 496 K/uL (150-450); RBC 3.37 M/uL (3.50-5.50); RDW-CV 16.4 % (11.9-14.6); WBC 11.6 K/uL (4.0-11.0)
[2016-11-18 12:51] LABS: BICARBONATE 25.7 mmol/L (18.0-23.0); LACTATE 1.4 mEq/L (0.50-1.60); PCO2 51 mmHg (35-45)
[2016-11-18 12:52] LABS: PO2 44 mmHg (80-90)
[2016-11-18 13:03] LABS: INR - (THERAPEUTIC) 0.98 (0.92-1.07); PROTIME 10.3 SECONDS (9.8-11.4); PTT 28 SECONDS (25-32)
[2016-11-18 13:17] LABS: ALBUMIN 3.1 gm/dL (3.5-5.0); ALK PHOS 107 IU/L (33-138); ALT 12 IU/L (12-78); ANION GAP 13.5 (10.0-19.0); AST 9 IU/L (10-40); BLOOD UREA NITROGEN 28 mg/dL (6-24); CALCIUM 8.7 mg/dL (8.5-10.5); CHLORIDE 108 mMol/L (96-110); CO2 24 mMol/L (22-32); CPK 25 IU/L (21-215); CREATININE 1.3 mg/dL (0.5-1.1); ESTIMATED GFR (MDRD EQUATION) 41; POTASSIUM 4.5 mMol/L (3.7-5.1); SODIUM 141 mMol/L (135-145)
[2016-11-18 13:22] LABS: TOTAL BILIRUBIN 0.3 mg/dL (0.0-1.5)
[2016-11-18 16:00] LABS: BILIRUBIN URINE NEGATIVE (NEGATIVE); BLOOD URINE 10 /UL (NEGATIVE); GLUCOSE URINE NEGATIVE (NEGATIVE); KETONE URINE NEGATIVE (NEGATIVE); LEUKOCYTES URINE 25 /UL (NEGATIVE); NITRITE URINE NEGATIVE (NEGATIVE); PROTEIN URINE 100 mg/dL (NEGATIVE); SPEC GRAVITY URINE 1.015 (1.003-1.035); UROBILINOGEN URINE NORMAL (NORMAL)
[2016-11-18 16:07] LABS: COLOR URINE YELLOW (YELLOW); TURBIDITY URINE CLEAR (CLEAR)
[2016-11-18 16:09] LABS: BACTERIA URINE MODERATE (NEGATIVE); RBC URINE NEGATIVE #/HPF (NEGATIVE)
[2016-11-18 16:10] LABS: HYALINE CAST URINE 0-2 #/LPF (NEGATIVE)
--- NOTE | 2016-11-18 17:12 | NUR ---
Pt is 66 y/o female admit for pleural effusion for hospitalist. Hx Cdiff and MRSA. In contact isolation. Pt has trouble expressing her words at times. Came through ED. Alert and oriented x3. Many allergies. See chart. Limb alert,red,and yellow bracelets on. Red socks on. Hx CHF,htn,hypercholest, valve replacement,frequent UTI's,dizziness,weakness,pulm emboli,murmur, PVD,COPD,SOB w activity,sleep apnea,pneumonia,O2 PRN at home,gerd. See chart for complete hx.
[2016-11-18] MEDS ORDERED: TYLENOL EXTRA500 MG PO (17:20)
[2016-11-18] MEDS ORDERED: FOLIC ACID1 MG PO (17:22)
[2016-11-18] MEDS ORDERED: PROBIOTIC1 EAC1 PO (17:24)
[2016-11-18] MEDS ORDERED: DELTASONE5 MG PO (17:25)
[2016-11-18] MEDS ORDERED: DESYREL100 MG PO (17:26)
[2016-11-18] MEDS ORDERED: RISPERDAL0.5 MG PO (17:26)
[2016-11-18] MEDS ORDERED: FEOSOL325 MG PO (17:27)
--- NOTE | 2016-11-18 18:50 | NUR ---
Significant Event: Patient is alert and oriented to place and person but not time. IV lasix given x1. IV in the L)upper arm. Up with 2PA. VSS and on 2 liters of O2. Plans to start heparin drip. Cooperative with cares.
[2016-11-18 19:50] LABS: HEMOGLOBIN 9.1 g/dL (10.0-15.0)
[2016-11-18 19:59] LABS: INR - (THERAPEUTIC) 0.98 (0.92-1.07); PROTIME 10.3 SECONDS (9.8-11.4)
[2016-11-19 03:33] LABS: HEMATOCRIT 28.4 % (33.0-46.0); HEMOGLOBIN 8.6 g/dL (10.0-15.0)
[2016-11-19 04:16] LABS: INR - (THERAPEUTIC) 1.02 (0.92-1.07); PROTIME 10.7 SECONDS (9.8-11.4)
--- NOTE | 2016-11-19 05:12 | NUR ---
Pt. alert and oriented to self mostly. Can tell day and bday on occasion. Admitted yesterday with pleural effusion. hx. dialysis, CAD, HTN, CABG, COPD, lap niurka, kidney transport. Precautions for C-diff - contact isolation. Many allergies. L) sided abdominal pain. Big hematoma on both sides of abdomen form Lovenox shots. Softball size mass hematoma in midline abdomen. Pt. states it was "old blood". No Coumadin for 2 weeks. NO IVF. IV to L) upper arm. L) forearm for BP. R) arm fistula but does not work. Heparin Drip started at 193. Last PTT was 52 - titrated up 100. Pt states that she takes percocet before bed every night. Hospitalist did not order for percocet. Last tylenol at 2144.
[2016-11-19 07:08] LABS: HEMATOCRIT 28.6 % (33.0-46.0); HEMOGLOBIN 8.9 g/dL (10.0-15.0)
[2016-11-19 11:46] LABS: HEMATOCRIT 28.4 % (33.0-46.0); HEMOGLOBIN 8.6 g/dL (10.0-15.0)
--- NOTE | 2016-11-19 18:51 | NUR ---
Significant Event: Alert, answers orientation questions appropriately, but forgetful and aphasic, mumbles, trouble spitting out words. VSS, afebrile, on 2L O2 -home dose, CPAP while sleeping. Heparin at 1400 units/hr, next draw 2359. 3 formed BM, voids per bedpan. Percocet given at 1600.
[2016-11-19 19:17] LABS: HEMATOCRIT 29.6 % (33.0-46.0); HEMOGLOBIN 9.2 g/dL (10.0-15.0)
[2016-11-20 07:18] LABS: BASOPHIL # 0.1 K/uL (0.0-0.2); BASOPHIL % 0.8 %; EOSINOPHIL # 0.3 K/uL (0.0-0.5); EOSINOPHIL % 3.3 %; HEMATOCRIT 29.4 % (33.0-46.0); HEMOGLOBIN 8.9 g/dL (10.0-15.0); IMMATURE GRANULOCYTE # 0.4 K/uL (0.0-0.3); IMMATURE GRANULOCYTE % 3.8 %; LYMPHOCYTE % 9.9 %; MCH 27.6 pg (27.0-34.0); MCHC 30.3 gm/dL (32.0-36.5); MONOCYTE # 0.6 K/uL (0.0-1.0); MONOCYTE % 6.3 %; MPV 8.5 fl (9.4-12.4); NEUTROPHIL # (ANC) 7.6 K/uL (1.8-7.8); NEUTROPHIL % 75.9 %; NRBC % 0 /100WBC (0-0.00); PLATELET COUNT 523 K/uL (150-450); RBC 3.23 M/uL (3.50-5.50); RDW-CV 16.4 % (11.9-14.6)
[2016-11-20 07:20] LABS: INR - (THERAPEUTIC) 1.33 (0.92-1.07)
[2016-11-20 07:28] LABS: ALBUMIN 2.9 gm/dL (3.5-5.0); ANION GAP 11.1 (10.0-19.0); CALCIUM 8.8 mg/dL (8.5-10.5); CREATININE 1.1 mg/dL (0.5-1.1); PHOSPHORUS 3.2 mg/dL (2.5-4.9); POTASSIUM 5.1 mMol/L (3.7-5.1)
--- NOTE | 2016-11-20 07:43 | NUR ---
Significant Event: Pt alert oriented. Aphasic at times. Slighly hyertensive. this shift. Percocet given x 1 around 0330 for abd pain. Bed alarm on with no attempts to get out of bed. Uses call light for assist. Heparin drip continues, next ptt-hp 0700. Cont to monitor. She wants her own walker and will ask her family to bring it. Follow up: Hep protocol.
--- NOTE | 2016-11-20 19:33 | NUR ---
Patient alert and oriented, but can be confused. Isolation for C.Dif. Had 3 formed soft BMs this shift. Used bedpan. 2 assist but has not been out of bed today. Complaints of pain and wanting percocet all day with multiple reminders that she can not have until around 1600. Asked again for pain medication at shift change. On 1.5L O2, wears CPAP at night. Large hematoma on belly and bruising to L) flank. Heparin drip to L) upper arm infusing at 1300ml/hr, was therapeutic at 0700. Daily standing weight.
--- NOTE | 2016-11-21 05:07 | NUR ---
Significant Event: PATIENT IS ALERT AND ORIENTATED APHASIS AT TIMES. PERCOCET GIVE AT 0330 FOR PAIN. BED ALARM ON WITH 1 ATEMPT TO GET OUT OF BED. HEPARIN DRIP CONTINUES NEXT PTT-HP AT 0800. USES CALL LIGHT FOR ASSISTANCE. INCONTINENT. Follow up:
[2016-11-21 06:44] LABS: BASOPHIL # 0.1 K/uL (0.0-0.2); BASOPHIL % 0.5 %; EOSINOPHIL # 0.3 K/uL (0.0-0.5); EOSINOPHIL % 2.8 %; HEMATOCRIT 29.3 % (33.0-46.0); IMMATURE GRANULOCYTE # 0.2 K/uL (0.0-0.3); LYMPHOCYTE # 0.9 K/uL (0.8-4.0); LYMPHOCYTE % 9.3 %; MCH 27.7 pg (27.0-34.0); MCHC 30.7 gm/dL (32.0-36.5); MCV 90.2 fl (83.0-98.0); MONOCYTE # 0.7 K/uL (0.0-1.0); MONOCYTE % 7.6 %; MPV 8.2 fl (9.4-12.4); NEUTROPHIL # (ANC) 7.5 K/uL (1.8-7.8); NEUTROPHIL % 77.8 %; NRBC % 0 /100WBC (0-0.00); PLATELET COUNT 491 K/uL (150-450); RBC 3.25 M/uL (3.50-5.50); RDW-CV 16.6 % (11.9-14.6); WBC 9.6 K/uL (4.0-11.0)
[2016-11-21 06:51] LABS: INR - (THERAPEUTIC) 1.74 (0.92-1.07); PROTIME 18.4 SECONDS (9.8-11.4)
[2016-11-21 06:58] LABS: ALBUMIN 2.8 gm/dL (3.5-5.0); ANION GAP 12.8 (10.0-19.0); CALCIUM 8.8 mg/dL (8.5-10.5); POTASSIUM 4.8 mMol/L (3.7-5.1)
--- NOTE | 2016-11-21 15:30 | NUR ---
SPOKE TO PATIENT AND HER DAUGHTER AT THE BEDSIDE. PATIENT WELL KNOWN TO ME. PATIENT'S DAUGHTER INFORMS ME THAT MAGY LIVES WITH HER AND THAT THEY ARE PLANNING ON HAVING HER RETURN TO HER DAUGHTER'S HOME., MAGY HAS HHC THROUGH [facility]. AND HER DAUGHTER THINKS THAT [facility] HELPS THEM. SHE IS WANTING TO KNOW HOW THEY CAN GET MORE HELP. I ENCOURAGED HER TO CONTACT [facility] TO SEE IF THEY CAN PROVIDE MORE HELP. I NOTIFIED ALEX WITH [facility] AND UPDATED HER ON HOW MAGY WAS DOING. SHE REPORTS THAT THEY WILL CONT TO SEE [facility] ONCE SHE IS READY FOR DISCHARGE. SHE REPORTS THAT THERE ARE DAYS THE DAUGHTER CALL THEM TELLING THEM THAT SHE CAN NOT TAKE CARE OF MAGY ANY LONGER THAN WHEN THEY GO TO MAKE ARRANGEMENTS FO SNF THE FAMILY TELLS THEM THAT THEY DO NOT WANT TO PUT MAGY IN A SNF.
--- NOTE | 2016-11-21 16:45 | NUR ---
Significant Event: Patient is alert and oriented x3, however gets confused at times. Aphasic and stuttering at time. 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 Working with PT and OT. Frequently asking for pain medication, MD made aware of this. Percocet last given at 1530. Titrated to room air- sating at 96%. Patient will frequently take her oxygen off. Wears CPAP at night. Started on a 1.5ml FR. Heparin drip to the L)upper arm infusing at 1000 units/hr. Next check is at 2200. Daily standing weight. Bed alarm on at all times.
--- NOTE | 2016-11-22 04:45 | NUR ---
Significant Event: Patient is alert and oriented x 3. Forgetful. Aphasic and stutters/mumbles at times. VSS on 2L of O2. Refused and took off CPAP during the middle of the night. Up with 2 assist. Voids per bedpan. BM x 1 this shift. On 1500 ml fluid restriction. In contact isolation for VRE/MRSA. Percocet given last at 0332 and Tylenol last at 2117. Left upper arm IV with Heparin running at 1000 units. Next PTTHP at 0500. Patient is cooperative with cares. Follow up:
[2016-11-22 05:16] LABS: BASOPHIL # 0.1 K/uL (0.0-0.2); BASOPHIL % 0.5 %; EOSINOPHIL # 0.3 K/uL (0.0-0.5); EOSINOPHIL % 2.4 %; HEMATOCRIT 28.6 % (33.0-46.0); HEMOGLOBIN 8.6 g/dL (10.0-15.0); IMMATURE GRANULOCYTE # 0.2 K/uL (0.0-0.3); IMMATURE GRANULOCYTE % 1.5 %; LYMPHOCYTE # 0.8 K/uL (0.8-4.0); LYMPHOCYTE % 6.8 %; MCH 27.7 pg (27.0-34.0); MCHC 30.1 gm/dL (32.0-36.5); MCV 92.3 fl (83.0-98.0); MONOCYTE # 0.8 K/uL (0.0-1.0); MONOCYTE % 6.8 %; MPV 8.2 fl (9.4-12.4); NEUTROPHIL # (ANC) 9.7 K/uL (1.8-7.8); NRBC % 0 /100WBC (0-0.00); PLATELET COUNT 497 K/uL (150-450); WBC 11.9 K/uL (4.0-11.0)
[2016-11-22 05:24] LABS: INR - (THERAPEUTIC) 2.09 (0.92-1.07); PROTIME 22.1 SECONDS (9.8-11.4)
[2016-11-22 05:31] LABS: ANION GAP 13.7 (10.0-19.0); CALCIUM 8.7 mg/dL (8.5-10.5); CREATININE 1.2 mg/dL (0.5-1.1); POTASSIUM 4.7 mMol/L (3.7-5.1)
--- NOTE | 2016-11-22 16:39 | NUR ---
Significant Event: Patient has aphasia, mumbles and stutters but alert and oriented x3. Patient frequently requesting pain meds, can only have q 12 hr. Time of next dose is updated on whiteboard, which helps to reinforce orders. PT works with patient, needs to be up to chair TID. 1PA with walker. Patient is on contact precautions for MRSA/VRE. If patient has loose stool send for C Diff. Standing daily weights to be taken. Hazardous drugs and fluid restrictions. Patient has baseball-sized hematoma on L) abdomen. CT was completed in afternoon. Heparin drip to L) shoulder IV. Next PTT at 1800. Patient was titrated to room air, wears CPAP when asleep. High fall risk, alarms for safety. Patient uses all buttons ship/rec/doc control light frequently. Follow Up: Reinforce orders for pain control. Alarms on at all times.
--- NOTE | 2016-11-22 18:42 | NUR ---
I HAVE REVIEWED AND AGREE WITH CHARTING COMPLETED BY [facility] STUDENT BAYRON VIERA FROM [id number] GIO IRVING
[2016-11-23 04:18] LABS: BASOPHIL # 0.1 K/uL (0.0-0.2); BASOPHIL % 0.4 %; EOSINOPHIL # 0.3 K/uL (0.0-0.5); EOSINOPHIL % 2.9 %; HEMATOCRIT 29.9 % (33.0-46.0); IMMATURE GRANULOCYTE # 0.2 K/uL (0.0-0.3); IMMATURE GRANULOCYTE % 1.8 %; LYMPHOCYTE # 0.8 K/uL (0.8-4.0); LYMPHOCYTE % 6.7 %; MCH 27.4 pg (27.0-34.0); MCHC 30.1 gm/dL (32.0-36.5); MCV 90.9 fl (83.0-98.0); MONOCYTE # 0.6 K/uL (0.0-1.0); MONOCYTE % 4.8 %; MPV 8.4 fl (9.4-12.4); NEUTROPHIL # (ANC) 9.5 K/uL (1.8-7.8); NEUTROPHIL % 83.4 %; NRBC % 0 /100WBC (0-0.00); PLATELET COUNT 494 K/uL (150-450); RBC 3.29 M/uL (3.50-5.50); RDW-CV 17.1 % (11.9-14.6); WBC 11.4 K/uL (4.0-11.0)
[2016-11-23 04:24] LABS: INR - (THERAPEUTIC) 1.87 (0.92-1.07); PROTIME 19.8 SECONDS (9.8-11.4)
[2016-11-23 04:26] LABS: ANION GAP 11.8 (10.0-19.0); CALCIUM 8.9 mg/dL (8.5-10.5); CREATININE 1.1 mg/dL (0.5-1.1); POTASSIUM 4.8 mMol/L (3.7-5.1)
--- NOTE | 2016-11-23 07:17 | NUR ---
Significant Event: *RESUMED CARE FROM [id number]* A&Ox3, forgetful. VSS on room air. Patient requested O2 be put on. CPAP applied. Heparin gtt currently paused til next PTTHP at 0630. Critical result of 271, blood drawn from foot. Heparin gtt was running at 1400 units before being paused. 1 percocet given at 0330. Daily weight. Transfers with 2PA. Follow up:
--- NOTE | 2016-11-23 15:37 | NUR ---
A - PT SCREENED D/T LOS. APHASIC, MUMBLED, CONFUSED AT TIMES PER SHIFT REPORT. HEMATOMA TO LEFT ABDOMEN. DAILY STANDING WEIGHT. PER RECORD, WEIGHT ON 10/25/16 WAS 130# VS CBW OF 179#? ON BUMEX. HT: 154.94 CM, WT: 179#, BMI 33.7, IBW: 47.7 KG, %IBW: 171% LABS: GLU 108, BUN 28, ALB 2.8, PROBNP [id number] MEDS: COUMADIN, BUMEX, LEXAPRO, PREDNISONE, LACTINEX. DIET: CARDIAC W/ 1500ML FLUID RESTRICTION. INTAKE 55% X9 MEALS. EST NEEDS: [id number] KCAL (25-30 KCAL/KG IBW), 48-58 GRAMS PROTEIN (1-1.2 GRAMS/KG IBW), FLUID NEEDS PER MD. D - INADEQUATE ORAL INTAKE RELATED TO DECREASED APPETITE SECONDARY TO ALTERED MENTAL STATUS EVIDENCED BY PO 55% X9 MEALS. I - WILL TRIAL ENSURE COMPACT BID. M/E - GOAL: PT WILL BE ABLE TO TOLERATE >65% OF MEALS AND AT LEAST ONE ORAL SUPPLEMENT PER DAY IN 2-4 DAYS.
--- NOTE | 2016-11-23 19:33 | NUR ---
Significant Event: PT AO. BPs SLIGHTLY HTN, AFEBRILE. SATS >90% ON RA, PT VERY ANXIOUS ABOUT NEEDING OXYGEN, WEARS 2L AT HOME. ORDER RECIEVED TO KEEP ON 1L FOR PT COMFORT. WEARS CPAP AT HS. IV TO L SHOULDER, HEPARIN GTT RUNNING, NEXT PPTHP @ 2215. REMAINS IN CONTACT ISOLATION. HAZARDOUS DRUG PRECAUTIONS. ORDERS TO OBTAIN STOOL FOR CDIFF IF HAVING LOOSE STOOLS. ONLY BMX1 THIS SHIFT, SOFT NOT LOOSE. PRN PERCOCET AT 1612. CAN ONLY HAVE Q12HR, PT AWARE BUT STILL CALLS FREQUENTLY ASKING FOR PAIN MEDS. OFFERED TYLENOL, PT REFUSED STATED IT DOES NOT HELP. THIS AFTERNOON OFFERED CPAP IF PT WAS GOING TO SLEEP AND PT STATED "CANT GO TO SLEEP UNTIL I HAVE MY PERCOCET". REMINDED PT THAT PERCOCET IS NOT FOR SLEEP. TOLERATING RENAL DIET, 1500ML FLUID RESTRICTION. THERAPY WORKING WITH. AMBULATES WITH 1PA, GATIBELT AND WALKER. ORDERS TO BE UP IN CHAIR TID. Follow up: BED ALARM, HEP GTT
--- NOTE | 2016-11-23 19:38 | NUR ---
I HAVE REVIEWED AND AGREE WITH CHARTING COMPLETED BY [facility] STUDENT BAYRON VIERA FROM [id number]. GIO IRVING
--- NOTE | 2016-11-24 04:47 | NUR ---
Pt. alert but not always oriented. Aphasia. 1L of O2. Would not wear CPAP. VSS. 1 assist with walker. Heparin drip going at 1500 units currently. 2230 PTT/HP was 30. MD called and said not to bolus but +200 before it was paused. Next draw at 0720. L) upper arm IV. Contact precautions for C-diff. Call MD for loose stools. Daily weight. 1500 fluid restriction. MD order for lab to draw from foot. Hazardous drug precautions. 1 percocet every 12 hours. Last at 0415.
[2016-11-24 06:35] LABS: BASOPHIL # 0.1 K/uL (0.0-0.2); BASOPHIL % 0.5 %; EOSINOPHIL # 0.3 K/uL (0.0-0.5); EOSINOPHIL % 3.4 %; HEMATOCRIT 29.3 % (33.0-46.0); HEMOGLOBIN 8.8 g/dL (10.0-15.0); IMMATURE GRANULOCYTE # 0.2 K/uL (0.0-0.3); IMMATURE GRANULOCYTE % 2.1 %; LYMPHOCYTE # 0.9 K/uL (0.8-4.0); LYMPHOCYTE % 9.6 %; MCH 27.9 pg (27.0-34.0); MONOCYTE # 0.7 K/uL (0.0-1.0); MONOCYTE % 6.9 %; MPV 8.2 fl (9.4-12.4); NEUTROPHIL # (ANC) 7.6 K/uL (1.8-7.8); NEUTROPHIL % 77.5 %; NRBC % 0 /100WBC (0-0.00); PLATELET COUNT 492 K/uL (150-450); RBC 3.15 M/uL (3.50-5.50); RDW-CV 17.4 % (11.9-14.6); WBC 9.8 K/uL (4.0-11.0)
[2016-11-24 06:44] LABS: INR - (THERAPEUTIC) 2.11 (0.92-1.07); PROTIME 22.3 SECONDS (9.8-11.4)
--- NOTE | 2016-11-24 16:14 | NUR ---
Significant Event: Patient is alert and oriented x3, however does get confused at times and is aphasic. VSS and on 1 liter of O2. Does take her oxygen at times, re-educated the importance of keeping oxygen applied. Having formed stools- we are to notify the MD if patient has liquid stools to test for C.Diff. In isolation for VRE and MRSA, but not C.Diff. IV in the left upper arm- heparin gtt running. Next PTT-HP is at 1700. Was therapeutic for the first time at 11. Up with 1PA. Is to sit in the chair TID. Has sat in the chair once today. Will try again in awhile. Percocet given last around 1600. Complaints of double vision- passing vision tests and MD aware- answers all questions correctly. Cooperative with cares.
[2016-11-25 02:17] LABS: HEMATOCRIT 29.3 % (33.0-46.0); HEMOGLOBIN 8.5 g/dL (10.0-15.0)
[2016-11-25 02:32] LABS: ANION GAP 12.9 (10.0-19.0); CALCIUM 8.7 mg/dL (8.5-10.5); CREATININE 1.3 mg/dL (0.5-1.1); POTASSIUM 4.9 mMol/L (3.7-5.1)
[2016-11-25 02:42] LABS: INR - (THERAPEUTIC) 2.82 (0.92-1.07); PROTIME 29.9 SECONDS (9.8-11.4)
--- NOTE | 2016-11-25 04:11 | NUR ---
SIGNIFICANT EVENT: Patient alert, oriented to self. PIV to L)UA - IV heparin infusing, currently delayed d/t PttHp >260 - next lab draw is at 0445. Percocet q12H for pain, last at 0415. Hypertensive at times - 140 to 172 over 81 to 97. Other VSS on 1L. SB to 1PA walker to BR. Contact Iso for VRE and MRSA in urine. Fluid restrict of 1500 - cardiac diet. Hematoma to L) lower abd. Cooperative with cares.
--- NOTE | 2016-11-25 12:04 | NUR ---
A-NUTRITION F/U LABS (11/25) REVIEWED NO NEW MEDS DIET RX: CARDIAC DIET W/1500 ML FLUID RESTRICTION. ENSURE COMPACT BID. PO INTAKE SINCE LAST F/U HAS BEEN 100%. AVG PO INTAKE SINCE ADMIT IS 76% EST NUTR NEEDS: 9557-3780 KCALS AND 45-58 GM PROTEIN D-NOT AT NUTRITION RISK AT THIS TIME W/ADEQUATE ORAL INTAKE; NO NUTRITION DX IDENTIFIED. I-CONTINUE W/ENSURE COMPACT BID TO MAINTAIN NUTRITION STATUS M/E-WILL ASSIST NEEDED
--- NOTE | 2016-11-25 12:30 | NUR ---
SPOKE TO CYNTHIA WITH [facility] UPDATED HER THAT PATIENT IS BEING DISCHARGED HOME TODAY. THEY WILL PLAN ON SEEING PATIENT TOMORROW AND CHECK THE INR. KARTIN HERE WITH [facility] AND SHE TOOK COPY OF THE DISCHARGE ORDERS TO THE [facility] OFFICE.
[2016-11-25] MEDS ORDERED: BUMEX1 MG PO (14:24)
[2016-11-25] MEDS ORDERED: PERCOCET 5-3251 EACH PO (14:25)
--- NOTE | 2016-11-25 16:58 | NUR ---
DISCHARGE: Pt. was educated on new medications: bumex and percocet. Educated on coumadin therapy, CHF teaching, and signs of CHF flare ups. Verbalized understanding, no questions or concerns. IV removed by primary nurse. Left with all belongings and prescriptions. Will have home health at home. Taken to front door by aide and driven home by daughter.
== END 2016-11-25 16:55 | disposition disaster alternative care site (69) | DRG 291 ==
LOC: GMED 12:08 → GACC 12:08 → GMSU 15:57
PROVIDERS: Family Medicine; Hospitalist; Nurse Practitioner Family; ADMIT Internal Medicine
DX: I50.33 Acute on chronic diastolic (congestive) heart failure (principal); J96.21 Acute and chronic respiratory failure with hypoxia; N17.9 Acute kidney failure, unspecified; Z94.0 Kidney transplant status; D63.1 Anemia in chronic kidney disease; S30.1XXA Contusion of abdominal wall, initial encounter; G47.33 Obstructive sleep apnea (adult) (pediatric); N18.9 Chronic kidney disease, unspecified; M79.7 Fibromyalgia; G89.4 Chronic pain syndrome; Z79.01 Long term (current) use of anticoagulants; Z95.2 Presence of prosthetic heart valve
CPT/HCPCS: J1170; J1644; J1940; J7507; J7512; J7517

== ENCOUNTER → 2016-11-18 | Outpatient (CLI) | payer MEDICARE | LOC: LKCL 12:25 | DX: R19.7 Diarrhea, unspecified (principal) ==

== ENCOUNTER 2016-12-03 20:48 | Emergency (ER) | payer MEDICARE ==
--- NOTE | ~2016-12-03 | ER ---
PATIENT'S NAME: MAGY PERES [facility] AGE: 66 Y [address] ROOM: [place] [address] LOCATION: ED ADMIT DATE: 12/03/2016 ER/Outpatient Report DISCHARGE DATE: 12/03/2016 FAMILY PHYSICIAN: Anil Lopez MD ATTENDING PHYSICIAN: Harvinder Lara CHIEF COMPLAINT: Bleeding from the left ear. HISTORY OF PRESENT ILLNESS: The patient states she had noted some fullness in her left ear for a couple of hours and then all of a sudden has bleeding. She has not noticed any pain in the ear and she initially denied putting anything in her ear. She did later state that she thought she might have used a Q-tip in the ear this evening. ALLERGIES: INCLUDE CODEINE, IODINE, MORPHINE, NONSTEROIDAL ANTI-INFLAMMATORIES INCLUDING TORADOL. HOME MEDICATIONS: Include: 1. Amlodipine 10 mg daily. 2. Aspirin 81 mg daily. 3. Tacrolimus 1 mg; she takes 2 mg daily. 4. BiPAP oxygen continuously. 5. Escitalopram 20 mg daily. 6. Warfarin 3 mg daily. 7. Mycophenolate 750 mg twice daily. 8. Carvedilol 25 mg twice daily. 9. Acetaminophen 500 mg every 8 hours as needed. 10. Folic acid 1 mg every day. 11. Lactobacillus 4 tablets 3 times a day with meals. 12. Prednisone 5 mg daily. 13. Risperidone 0.5 mg 3 times a day. 14. Trazodone 100 mg at bedtime. 15. Ferrous sulfate 325 mg daily. 16. Bumetanide 1 mg daily. 17. Oxycodone 5 mg every 12 hours as needed. PAST MEDICAL HISTORY: Includes deep vein thrombosis, hypoxia oxygen-dependent, C. difficile, congestive heart failure, sleep apnea, peripheral vascular disease, fibromyalgia gastritis, encephalopathy, renal transplant, aortic valve, mitral valve, fecal transplant, AV fistula. PATIENT'S NAME: MAGY PERES [facility] AGE: 66 Y [address] ROOM: [place] [address] LOCATION: ED ADMIT DATE: 12/03/2016 ER/Outpatient Report DISCHARGE DATE: 12/03/2016 FAMILY PHYSICIAN: Anil Lopez MD ATTENDING PHYSICIAN: Harvinder Lara SOCIAL HISTORY: The patient does not use tobacco or alcohol. REVIEW OF SYSTEMS: The patient has not been home from the hospital for terribly long time. She does state however that she has been doing fairly well. She denies any fevers or chills. She denies any pain. She states her weight has been stable. HEENT: She has no headache or visual changes. No upper respiratory congestion. No sore throat. No change in her hearing. CARDIOVASCULAR: No palpitations or chest pain. RESPIRATORY: No shortness of breath or cough that is new. The patient does have some chronic shortness of breath. GASTROINTESTINAL: She denies any nausea, vomiting, or diarrhea. GENITOURINARY: No complaints. NEUROLOGIC: The patient admits to being forgetful and her daughter states that this has become more noticeable. Daughter also notices that her gait has changed and that her speech is not as clear. This, however, is not new today and that has been brought to the attention of the primary care provider. MUSCULOSKELETAL: No complaints. HEMATOLOGY: The patient is anticoagulated. SKIN: No complaints. ENDOCRINE: No complaints. PSYCHIATRIC: No complaints. PHYSICAL EXAMINATION: VITAL SIGNS: Temperature 97.4 tympanic, pulse is 68, respiratory rate of 22, blood pressure 142/84, oxygen saturation 96% on 1 L per nasal cannula. GENERAL: The patient is alert and oriented in no acute distress. She does have a Kleenex in her left ear canal that has visible blood on at. HEENT: Head is normocephalic. Eyes, PERRL. Right ear TM is pearly streeter with light reflex and landmarks visible. Left ear, there is blood in the canal. There is also debris from the Kleenex that is easily removed with an ear curette. The TM is obscured by blood. It is difficult to tell if it is intact. The patient has not had any pain in that ear. I did have Dr. Lara come in and also look at the ear. He also stated it was difficult to tell, but he felt that the TM was intact. Nose, turbinates are pink. No rhinorrhea. Throat is without edema, erythema, or exudate. Uvula is midline. Mucous membranes are moist. NECK: Supple. No lymphadenopathy. LUNGS: Decreased throughout with no adventitious sounds noted. Respiratory effort is slightly labored. HEART: Rate is regular. S1 and S2 are normal. No murmurs noted. ABDOMEN: Soft. EXTREMITIES: Without edema. Cap refill less than 3 seconds. Cranial nerves II through XII are grossly intact. PATIENT'S NAME: MAGY PERES [facility] AGE: 66 Y [address] ROOM: [place], [place] [address] LOCATION: [facility] ADMIT DATE: 12/03/2016 ER/Outpatient Report DISCHARGE DATE: 12/03/2016 FAMILY PHYSICIAN: Anil Lopez MD ATTENDING PHYSICIAN: Harvinder Lara IMPRESSION AND ASSESSMENT: Trauma to the left ear. EMERGENCY DEPARTMENT COURSE: The patient did have no further bleeding from the ear after the Kleenex was removed. DISPOSITION AND PLAN: The patient is to follow up with her primary care provider in 2 days on Monday morning. We did discuss antibiotics, however, with her history of C. difficile, recent fecal transplant, we decided not to prescribe antibiotics at this time and just have the patient follow up Monday morning. She is to follow up sooner if she develops pain or fever or any other concerns at all. LOREN CORNEJO APRN FOR HARVINDER LARA MD DP/modl /[id number] d: 12/04/16 0150 t: 12/27/16 1540, OUTPATIENT REPORT
[~2016-12-03 20:48] MED LIST changes: +BUMEX1 MG PO; +DESYREL100 MG PO; +FOLIC ACID1 MG PO; +PROBIOTIC1 EAC1 PO; +RISPERDAL0.5 MG PO; +TYLENOL EXTRA500 MG PO
== END 2016-12-03 21:54 | disposition disaster alternative care site (69) ==
LOC: GMED 20:48
DX: S09.91XA Unspecified injury of ear, initial encounter (principal); I50.9 Heart failure, unspecified; M79.7 Fibromyalgia; G47.30 Sleep apnea, unspecified; Z94.0 Kidney transplant status; Z79.82 Long term (current) use of aspirin; Z79.01 Long term (current) use of anticoagulants; Z86.718 Personal history of other venous thrombosis and embolism; Z88.5 Allergy status to narcotic agent; Z88.8 Allergy status to other drugs, medicaments and biological substances; Y29.XXXA Contact with blunt object, undetermined intent, initial encounter

== ENCOUNTER → 2016-12-04 | Outpatient (CLI) | payer MEDICARE ==
[2016-12-04 17:29] LABS: INR - (THERAPEUTIC) 3.93 (0.92-1.07); PROTIME 41.8 SECONDS (9.8-11.4)
== END | disposition disaster alternative care site (69) ==
LOC: LKCL 16:04
PROVIDERS: Family Medicine
DX: Z79.899 Other long term (current) drug therapy (principal); Z51.81 Encounter for therapeutic drug level monitoring

== ENCOUNTER → 2016-12-20 | Outpatient (CLI) | payer MEDICARE ==
[2016-12-20 14:21] LABS: HEMATOCRIT 32.7 % (33.0-46.0); HEMOGLOBIN 10.1 g/dL (10.0-15.0); MCH 28.5 pg (27.0-34.0); MCHC 30.9 gm/dL (32.0-36.5); MCV 92.4 fl (83.0-98.0); MPV 8.5 fl (9.4-12.4); PLATELET COUNT 430 K/uL (150-450); RBC 3.54 M/uL (3.50-5.50); RDW-CV 17.2 % (11.9-14.6); WBC 8.1 K/uL (4.0-11.0)
[2016-12-20 14:36] LABS: ANION GAP 11.8 (10.0-19.0); CALCIUM 8.5 mg/dL (8.5-10.5); CREATININE 1.6 mg/dL (0.5-1.1); POTASSIUM 4.8 mMol/L (3.7-5.1)
[2016-12-20 15:17] LABS: ABSOLUTE NEUTROPHIL CT (ANC) 7.1 K/uL (1.8-7.8); BANDED NEUTROPHIL # 0.6 K/uL (0.0-0.1); BANDED NEUTROPHILS % 7 %; LYMPHOCYTE # 0.6 K/uL (0.8-4.0); LYMPHOCYTE % 7 %; MONOCYTE # 0.2 K/uL (0.0-1.0); SEGMENTED NEUTROPHIL # 6.6 K/uL (1.8-7.8); SEGMENTED NEUTROPHIL % 81 %
== END | disposition disaster alternative care site (69) ==
LOC: LNHI 14:17
PROVIDERS: Internal Medicine Interventional Cardiology
DX: I10 Essential (primary) hypertension (principal); I50.9 Heart failure, unspecified

== ENCOUNTER 2017-01-09 17:29 | Emergency (ER) | payer MEDICARE ==
--- NOTE | ~2017-01-09 | ER ---
PATIENT'S NAME: MAGY PERES [facility] AGE: 66 Y [address] ROOM: [place] [address] LOCATION: [facility] ADMIT DATE: 01/09/2017 ER/Outpatient Report DISCHARGE DATE: 01/09/2017 FAMILY PHYSICIAN: Anil Lopez MD ATTENDING PHYSICIAN: Kimmy Ca HISTORY OF PRESENT ILLNESS: This patient is a 66-year-old female, who was sent over from [facility] by Dr. Anil Lopez for evaluation here in the emergency department because of increased swelling in her legs, abdomen, left arm. She has also been having some crampy pain everywhere. Initially, saw Dr. Ca here in the emergency department. See Dr. Ca's dictation in regard to chief complaint, history of present illness, past medical history, physical exam. Dr. Ca asked me to transfer the patient's care over to me at shift change and asked me to follow up with her laboratory, x-ray, study results, final diagnosis, and treatment plan. LABORATORY DATA AND X-RAYS: The patient's sedimentation rate was elevated at 51. Her urine was clear. Amylase and lipase were normal. CPK was normal at 33. [id number] cardiac enzymes were normal. CRP was normal at 0.69. Her lactate and procalcitonin were normal. TSH was 0.707. White count was 7100, differential with 75 segs, 12 lymphs, 6 monos, 3 eos, 1 baso, hemoglobin was 10.8, hematocrit 33.0, platelet count 425,000. PTT was 43, pro-time was 23.4, with an INR of 2.21. CMS was normal except for an elevated glucose 110, elevated BUN of 36, elevated creatinine 1.2, low GFR 45. ProBNP was 5417, lactate was 1.0. Pro- calcitonin was less than 0.05. Chest x-ray showed no acute infiltrate. There was some questionable mild congestive failure and small pleural effusion. We will review x-ray with the radiologist. Venous Doppler study of the left arm showed no evidence of thrombosis. IMPRESSION: 1. Increased swelling of legs, abdomen, left arm, etiology uncertain, but most likely secondary to her congestive heart failure and fluid retention. Her proBNP was 5417, fairly stable. 2. Chronic renal failure with BUN of 36, creatinine 1.2, decreased GFR of 45. 3. Valvular heart disease. 4. Chronic anticoagulation with Coumadin. 5. Past history of pulmonary embolism. 6. Peripheral vascular disease. 7. Fibromyalgia. 8. Hiatal hernia with gastritis. PLAN: PATIENT'S NAME: MAGY PERES [facility] AGE: 66 Y [address] ROOM: [place] [address] LOCATION: [facility] ADMIT DATE: 01/09/2017 ER/Outpatient Report DISCHARGE DATE: 01/09/2017 FAMILY PHYSICIAN: Anil Lopez MD ATTENDING PHYSICIAN: Kimmy Ca The patient dismissed home. Observation. Activity as tolerated. Continue present home medications and care. Follow up with personal physician in 2 to 3 days. Discussion ensued with the patient concerning my findings and recommendations, she understands. MD KHLOE DESAI/modl /[id number] d: 01/10/172 t: 01/10/17 0429, OUTPATIENT REPORT
--- NOTE | ~2017-01-09 | ENPV ---
Vascular Upper Extremities Veins Procedure Demographics Patient Name MAGY PERES Date of Study 01/09/2017 Patient Number [id number] Gender Female Date of 1950 Age 66 Visit Number [id number] Height Weight Number Room Number BSA BMI Referring John Stockton MD Interpreting Nacho Christensen MD Physician Physician Physician Ordering Arsh Giang [employer] Engineer Physician Lead Project Engineer [facility] Conclusions Summary Normal left upper extremity venous duplex. Procedure Type of Study: Veins:Upper Extremities Veins, Upper Extremity Left. Indications for Study:Arm pain and Arm swelling. Appropriate Use Criteria:9 Patient Status:STAT. Study Location:ER. Technical Quality:Adequate visualization. Velocities are measured in cm/s ; Diameters are measured in cm Left UE Vein Measurements 2D and Doppler Measurements + + + + +--------+--------+ !Location !Visualized !Compressibility !Thrombosis !Signal !Reflux ! + + + + +--------+--------+ !IJV !Yes !Yes !None !Phasic ! ! + + + + +--------+--------+ !SCV !Yes !Yes !None !Phasic ! ! + + + + +--------+--------+ !Innominate !Yes !Yes !None !Phasic ! ! + + + + +--------+--------+ !Axillary !Yes !Yes !None !Phasic ! ! + + + + +--------+--------+ !Brachial !Yes !Yes !None !Phasic ! ! + + + + +--------+--------+ !Radial !Yes !Yes !None ! ! ! + + + + +--------+--------+ !Ulnar !Yes !Yes !None ! ! ! + + + + +--------+--------+ !Basilic !Yes !Yes !None ! ! ! + + + + +--------+--------+ !Cephalic !Yes !Yes !None ! ! ! + + + + +--------+--------+ Signature dtt: IVETTE GERONIMO: 01/09/17 1855 Physician Self Edit
--- NOTE | ~2017-01-09 | ER ---
PATIENT'S NAME: WENDY PERES [facility] AGE: 66 Y [address] ROOM: [place] [address] LOCATION: ED ADMIT DATE: 01/09/2017 ER/Outpatient Report DISCHARGE DATE: 01/09/2017 FAMILY PHYSICIAN: Anil Lopez MD ATTENDING PHYSICIAN: Corinne Haque Time of arrival: 1729 hours. Time seen: 1748 hours. IDENTIFICATION: A 66-year-old female. CHIEF COMPLAINT: Left arm swelling. HISTORY OF PRESENT ILLNESS: The patient is a 66-year-old female patient, who went to the office today to see Dr. Anil Lopez for increased swelling in her legs and in her left upper extremity. She said that left arm is always swollen but it has been more swollen and associated with pain. Dr. Lopez recommended that she come here to the emergency room and according to Wendy, so that she could be admitted. I did contact Dr. Lopez; he said that she needed to come here for more evaluation. It is a little bit difficult to get a history from her because she is perseverating on how she is to be admitted rather than giving me much of a history. I am not able to identify when these problems started. ALLERGIES: TO CONTRAST DYE, CODEINE, TORADOL, MORPHINE, DILAUDID, AND NONSTEROIDALS. CURRENT MEDICATIONS: 1. Amlodipine 10 mg daily. 2. Aspirin 81 mg daily. 3. Tacrolimus 2 mg q.a.m. 4. BiPAP at bedtime, O2 p.r.n. 5. Escitalopram 20 mg daily. 6. Warfarin 3 mg daily. 7. Mycophenolate 750 mg b.i.d. 8. Tacrolimus 1 mg at bedtime. 9. Carvedilol 25 mg b.i.d. 10. Albuterol p.r.n. 11. Acetaminophen p.r.n. 12. Folic acid 1 mg daily. 13. Probiotic capsule 4 tablets 3 times daily. 14. Prednisone 5 mg daily. 15. Risperidone 0.5 mg t.i.d. PATIENT'S NAME: WENDY PERES [facility] AGE: 66 Y [address] ROOM: [place] [id number] LOCATION: ED ADMIT DATE: 01/09/2017 ER/Outpatient Report DISCHARGE DATE: 01/09/2017 FAMILY PHYSICIAN: Anil Lopez MD ATTENDING PHYSICIAN: Corinne Haque 16. Trazodone 100 mg at bedtime. 17. Ferrous sulfate 325 mg daily. 18. Bumex 1 mg daily. 19. Percocet p.r.n. pain. MEDICAL PROBLEMS: Chronic kidney disease, chronic C. diff, sleep apnea, fibromyalgia, PE, DVT, prosthetic mitral valve and aortic valve, hypertension, anemia, congestive heart failure, hypothyroidism, alcohol abuse, opiate abuse, encephalopathy. PRIOR SURGERIES: Coronary artery bypass graft, kidney transplant, cholecystectomy, hysterectomy, thyroidectomy, mitral and aortic valve replacements. SOCIAL HISTORY: The patient lives here in [place]. She is retired. Tobacco use, denies. Alcohol use, denies. Drug use, denies. REVIEW OF SYSTEMS: All systems reviewed and negative other than what is mentioned in the HPI. PHYSICAL EXAMINATION: VITAL SIGNS: Height 5 feet 1 inch, weight 64 kg. Blood pressure 198/90, pulse 80, respirations 20, temperature 97.8, and saturations 97% on room air. GENERAL: A pleasant female, in no acute distress. HEENT: Unremarkable. LUNGS: Clear to auscultation. HEART: Regular rate and rhythm. ABDOMEN: Soft, nondistended, nontender. SKIN: [place], warm, and dry. The patient has significant edema of her left upper extremity that extends into her left anterior chest wall. No erythema. No warmth. Tender to palpation. Good distal pulses and sensation is intact to light touch. Labs have been ordered. It is shift change and Dr. Caban will assume care. CORINNE HAQUE MD CAR/modl /[id number] d: 01/10/17 0854 t: 01/10/17 1149, OUTPATIENT REPORT
[2017-01-09 18:38] LABS: BASOPHIL # 0.1 K/uL (0.0-0.2); BASOPHIL % 0.7 %; EOSINOPHIL # 0.2 K/uL (0.0-0.5); EOSINOPHIL % 2.5 %; HEMOGLOBIN 10.8 g/dL (10.0-15.0); IMMATURE GRANULOCYTE # 0.3 K/uL (0.0-0.3); IMMATURE GRANULOCYTE % 4.3 %; LYMPHOCYTE # 0.8 K/uL (0.8-4.0); LYMPHOCYTE % 11.6 %; MCH 28.9 pg (27.0-34.0); MCHC 32.7 gm/dL (32.0-36.5); MCV 88.2 fl (83.0-98.0); MONOCYTE # 0.4 K/uL (0.0-1.0); MONOCYTE % 5.8 %; MPV 8.2 fl (9.4-12.4); NEUTROPHIL # (ANC) 5.4 K/uL (1.8-7.8); NEUTROPHIL % 75.1 %; NRBC % 0 /100WBC (0-0.00); PLATELET COUNT 425 K/uL (150-450); RBC 3.74 M/uL (3.50-5.50); RDW-CV 15.5 % (11.9-14.6); WBC 7.1 K/uL (4.0-11.0)
[2017-01-09 18:51] LABS: ALBUMIN 3.1 gm/dL (3.5-5.0); ANION GAP 12.1 (10.0-19.0); CALCIUM 8.6 mg/dL (8.5-10.5); CREATININE 1.2 mg/dL (0.5-1.1); POTASSIUM 5.1 mMol/L (3.7-5.1); TOTAL PROTEIN 6.8 g/dL (6.0-8.4)
[2017-01-09 19:00] LABS: CPK 33 IU/L (21-215); TOTAL BILIRUBIN 0.2 mg/dL (0.0-1.5)
[2017-01-09 19:17] LABS: INR - (THERAPEUTIC) 2.21 (0.92-1.07); PROTIME 23.4 SECONDS (9.8-11.4); PTT 43 SECONDS (25-32)
[2017-01-09 19:52] LABS: BILIRUBIN URINE NEGATIVE (NEGATIVE); BLOOD URINE 50 /UL (NEGATIVE); COLOR URINE STRAW (YELLOW); GLUCOSE URINE NEGATIVE (NEGATIVE); KETONE URINE NEGATIVE (NEGATIVE); LEUKOCYTES URINE NEGATIVE /UL (NEGATIVE); NITRITE URINE NEGATIVE (NEGATIVE); PH URINE 6.5 (4.0-8.0); PROTEIN URINE 500 mg/dL (NEGATIVE); TURBIDITY URINE CLEAR (CLEAR); UROBILINOGEN URINE NORMAL (NORMAL)
[2017-01-09 20:48] LABS: BACTERIA URINE NEGATIVE (NEGATIVE); EPITHELIAL URINE 0-2 #/HPF (NEGATIVE); HYALINE CAST URINE 0-2 #/LPF (NEGATIVE)
== END 2017-01-09 20:33 | disposition disaster alternative care site (69) ==
LOC: GMED 17:29
PROVIDERS: Emergency Medicine; Family Medicine
DX: M79.89 Other specified soft tissue disorders (principal); R19.00 Intra-abdominal and pelvic swelling, mass and lump, unspecified site; I13.0 Hypertensive heart and chronic kidney disease with heart failure and stage 1 through stage 4 chronic kidney disease, or unspecified chronic kidney disease; I50.9 Heart failure, unspecified; N18.9 Chronic kidney disease, unspecified; D64.9 Anemia, unspecified; E03.9 Hypothyroidism, unspecified; M79.7 Fibromyalgia; I73.9 Peripheral vascular disease, unspecified; G47.30 Sleep apnea, unspecified; K44.9 Diaphragmatic hernia without obstruction or gangrene; K29.70 Gastritis, unspecified, without bleeding; D68.32 Hemorrhagic disorder due to extrinsic circulating anticoagulants; Z90.49 Acquired absence of other specified parts of digestive tract; Z95.1 Presence of aortocoronary bypass graft; Z98.890 Other specified postprocedural states; Z79.82 Long term (current) use of aspirin; Z79.899 Other long term (current) drug therapy; Z91.041 Radiographic dye allergy status; Z88.5 Allergy status to narcotic agent; Z88.6 Allergy status to analgesic agent; Z79.01 Long term (current) use of anticoagulants; Z94.0 Kidney transplant status; Z90.710 Acquired absence of both cervix and uterus; Z90.89 Acquired absence of other organs; Z86.19 Personal history of other infectious and parasitic diseases; Z95.2 Presence of prosthetic heart valve; Z86.711 Personal history of pulmonary embolism

== ENCOUNTER → 2017-01-13 | Outpatient (CLI) | payer MEDICARE ==
[2017-01-13 16:33] LABS: ANION GAP 11.7 (10.0-19.0); CALCIUM 8.4 mg/dL (8.5-10.5); CREATININE 1.8 mg/dL (0.5-1.1)
[2017-01-13 16:34] LABS: POTASSIUM 5.7 mMol/L (3.7-5.1)
== END | disposition disaster alternative care site (69) ==
LOC: LHHCN 15:32
PROVIDERS: Internal Medicine Interventional Cardiology
DX: I50.32 Chronic diastolic (congestive) heart failure (principal); R60.0 Localized edema; N18.3 Chronic kidney disease, stage 3 (moderate)

== ENCOUNTER → 2017-01-18 | Outpatient (CLI) | payer MEDICARE | END | disposition disaster alternative care site (69) | LOC: GLAB 17:00 | DX: E87.5 Hyperkalemia (principal) ==